=== PATIENT | male | born 1955 | race African-American/Black ===

== ENCOUNTER 2017-06-27 01:50 | Emergency (ER) | payer OTHER ==
[2017-06-27 02:08] LABS: Glucose,Whole Blood 103 mg/dL (75-99)
[2017-06-27] MEDS ORDERED: SODIUM CHLORIDE 0.9% 1,000 ML IV STA (02:14)
[2017-06-27] MEDS ORDERED: LABETALOL 5 MG/ML VIAL MDV IVP STA ×2 (02:14→04:23)
[2017-06-27] MEDS ORDERED: MORPHINE SULFATE 10 MG/ML SYRINGE IVP STA (02:15)
[2017-06-27] MEDS ORDERED: ACETAMINOPHEN TAB 500 MG TAB PO STA (02:32)
--- NOTE | 2017-06-27 02:41 | ED ---
General Adult HPI - General Chief complaint: Recheck/Abnormal Lab/Rx Stated complaint: headache,hypertension Time Seen by Provider: 06/27/17 01:51 Source: EMS, RN notes reviewed, old records reviewed Mode of arrival: EMS Limitations: no limitations - History of Present Illness Initial comments: This is a 61-year-old male to the ER for evaluation. Patient is coming in for evaluation of elevated blood pressure. Headache. He is recent history of stroke present presently is at [facility] for rehabilitation at this time. Patient's his rehabilitation is going well. Stroke affected memory and that has resolved. Patient's eye blood pressure high cholesterol and recent history of CVA. Patient denies any chest pain no shortness of breath. Denies any other complaints states she's been taking all medication as prescribed - Related Data Home Medications Medication Instructions Recorded Confirmed Aspirin 325 mg PO DAILY 06/27/17 06/27/17 Atorvastatin [Lipitor] 40 mg PO HS 06/27/17 06/27/17 Docusate [Colace] 100 mg PO DAILY 06/27/17 06/27/17 Insulin Glargine [Lantus] 10 unit SQ DAILY 06/27/17 06/27/17 Labetalol HCl 200 mg PO DAILY 06/27/17 06/27/17 Lacosamide [Vimpat] 200 mg PO DAILY 06/27/17 06/27/17 Multivitamin [Men's Multi-Vitamin] 1 each PO DAILY 06/27/17 06/27/17 NIFEdipine [NIFEdipine ER] 90 mg PO DAILY 06/27/17 06/27/17 Omeprazole [PriLOSEC] 20 mg PO AC-BRKFST 06/27/17 06/27/17 Sennosides [Senna] 8.6 mg PO DAILY 06/27/17 06/27/17 Allergies Allergy/AdvReac Type Severity Reaction Status Date / Time No Known Allergies Allergy Verified 06/27/17 01:58 Review of Systems ROS Statement: Those systems with pertinent positive or pertinent negative responses have been documented in the HPI. ROS Other: All systems not noted in ROS Statement are negative. Past Medical History Past Medical History: CVA/TIA, Diabetes Mellitus, GERD/Reflux, Hyperlipidemia, Hypertension History of Any Multi-Drug Resistant Organisms: None Reported Past Surgical History: No Surgical Hx Reported Past Psychological History: No Psychological Hx Reported Smoking Status: Never smoker Past Alcohol Use History: Occasional Past Drug Use History: None Reported General Exam Limitations: no limitations General appearance: alert, in no apparent distress Head exam: Present: atraumatic, normocephalic, normal inspection Eye exam: Present: normal appearance, PERRL, EOMI. Absent: scleral icterus, conjunctival injection, periorbital swelling ENT exam: Present: normal exam, mucous membranes moist Neck exam: Present: normal inspection. Absent: tenderness, meningismus, lymphadenopathy Respiratory exam: Present: normal lung sounds bilaterally. Absent: respiratory distress, wheezes, rales, rhonchi, stridor Cardiovascular Exam: Present: regular rate, normal rhythm, normal heart sounds. Absent: systolic murmur, diastolic murmur, rubs, gallop, clicks GI/Abdominal exam: Present: soft, normal bowel sounds. Absent: distended, tenderness, guarding, rebound, rigid Extremities exam: Present: normal inspection, full ROM, normal capillary refill. Absent: tenderness, pedal edema, joint swelling, calf tenderness Back exam: Present: normal inspection Neurological exam: Present: alert, oriented X3, CN II-XII intact Psychiatric exam: Present: normal affect, normal mood Skin exam: Present: warm, dry, intact, normal color. Absent: rash Course Vital Signs 06/27/17 06/27/17 06/27/17 01:52 02:13 02:28 Temperature 98.0 F Pulse Rate 79 78 75 Respiratory 20 20 18 Rate Blood Pressure 188/122 161/85 161/90 O2 Sat by Pulse 98 98 97 Oximetry 06/27/17 06/27/17 06/27/17 03:11 03:57 04:40 Temperature 98.2 F Pulse Rate 78 66 66 Respiratory 18 18 20 Rate Blood Pressure 156/81 150/80 170/91 O2 Sat by Pulse 97 100 98 Oximetry - Reevaluation(s) Reevaluation #1: 06/27/17 02:39 Patient's blood pressure and headache resolved without intervention Reevaluation #2: 06/27/17 02:39 Medical records reviewed, no recent ER visits aside from outpatient lab draw EKG Findings - EKG Comments: EKG Findings:: EKG shows normal sinus rhythm rate of 76, KS 182, QRS 102, QTc 414 Medical Decision Making - Medical Decision Making 61 male to ER for evaluation of high blood pressure today. Patient denies any chest pain breath occasional headache but symptoms are improved. At this point blood pressure is controlled, patient can be discharged back to rehabilitation facility - Lab Data Result diagrams: 06/27/17 02:05 06/27/17 02:05 Lab Results 06/27/17 06/27/17 06/27/17 Range/Units 02:03 02:05 02:05 WBC 5.0 (3.8-10.6) k/uL RBC 3.92 L (4.30-5.90) m/uL Hgb 11.2 L (13.0-17.5) gm/dL Hct 34.9 L (39.0-53.0) % MCV 88.9 (80.0-100.0) fL MCH 28.6 (25.0-35.0) pg MCHC 32.2 (31.0-37.0) g/dL RDW 12.4 (11.5-15.5) % Plt Count 123 L (150-450) k/uL Neutrophils % 49 % Lymphocytes % 36 % Monocytes % 7 % Eosinophils % 5 % Basophils % 1 % Neutrophils # 2.4 (1.3-7.7) k/uL Lymphocytes # 1.8 (1.0-4.8) k/uL Monocytes # 0.3 (0-1.0) k/uL Eosinophils # 0.3 (0-0.7) k/uL Basophils # 0.0 (0-0.2) k/uL PT (9.0-12.0) sec INR (<1.2) APTT (22.0-30.0) sec Sodium (137-145) mmol/L Potassium (3.5-5.1) mmol/L Chloride (98-107) mmol/L Carbon Dioxide (22-30) mmol/L Anion Gap mmol/L BUN (9-20) mg/dL Creatinine (0.66-1.25) mg/dL Est GFR (MDRD) Af Amer (>60 ml/min/1.73 sqM) Est GFR (MDRD) Non-Af (>60 ml/min/1.73 sqM) Glucose (74-99) mg/dL POC Glucose (mg/dL) 103 H (75-99) mg/dL POC Glu Curam Developer ID Jaz, Clarissa Calcium (8.4-10.2) mg/dL Phosphorus (2.5-4.5) mg/dL Magnesium (1.6-2.3) mg/dL Total Bilirubin (0.2-1.3) mg/dL AST (17-59) U/L ALT (21-72) U/L Alkaline Phosphatase (38-126) U/L Total Creatine Kinase 78 (55-170) U/L CK-MB (CK-2) 0.9 (0.0-2.4) ng/mL CK-MB (CK-2) Rel Index 1.2 Troponin I <0.012 (0.000-0.034) ng/mL Total Protein (6.3-8.2) g/dL Albumin (3.5-5.0) g/dL 06/27/17 06/27/17 Range/Units 02:05 02:05 WBC (3.8-10.6) k/uL RBC (4.30-5.90) m/uL Hgb (13.0-17.5) gm/dL Hct (39.0-53.0) % MCV (80.0-100.0) fL MCH (25.0-35.0) pg MCHC (31.0-37.0) g/dL RDW (11.5-15.5) % Plt Count (150-450) k/uL Neutrophils % % Lymphocytes % % Monocytes % % Eosinophils % % Basophils % % Neutrophils # (1.3-7.7) k/uL Lymphocytes # (1.0-4.8) k/uL Monocytes # (0-1.0) k/uL Eosinophils # (0-0.7) k/uL Basophils # (0-0.2) k/uL PT 10.9 (9.0-12.0) sec INR 1.1 (<1.2) APTT 23.4 (22.0-30.0) sec Sodium 140 (137-145) mmol/L Potassium 4.1 (3.5-5.1) mmol/L Chloride 107 (98-107) mmol/L Carbon Dioxide 23 (22-30) mmol/L Anion Gap 10 mmol/L BUN 16 (9-20) mg/dL Creatinine 1.20 (0.66-1.25) mg/dL Est GFR (MDRD) Af Amer >60 (>60 ml/min/1.73 sqM) Est GFR (MDRD) Non-Af >60 (>60 ml/min/1.73 sqM) Glucose 131 H (74-99) mg/dL POC Glucose (mg/dL) (75-99) mg/dL POC Glu Curam Developer ID Calcium 9.3 (8.4-10.2) mg/dL Phosphorus 4.4 (2.5-4.5) mg/dL Magnesium 1.8 (1.6-2.3) mg/dL Total Bilirubin 0.3 (0.2-1.3) mg/dL AST 23 (17-59) U/L ALT 35 (21-72) U/L Alkaline Phosphatase 55 (38-126) U/L Total Creatine Kinase (55-170) U/L CK-MB (CK-2) (0.0-2.4) ng/mL CK-MB (CK-2) Rel Index Troponin I (0.000-0.034) ng/mL Total Protein 7.1 (6.3-8.2) g/dL Albumin 3.9 (3.5-5.0) g/dL - Radiology Data Radiology results: report reviewed (CT brain, chest x-ray negative for acute disease), image reviewed Disposition Clinical Impression: Hypertension, uncontrolled, Hypertension Disposition: HOME SELF-CARE Condition: Good Instructions: Hypertension (ED) Referrals: Raúl Abbott DO [Primary Care Provider] - 1-2 days
[2017-06-27 02:45] LABS: ALT 35 U/L (21-72); AST 23 U/L (17-59); Alkaline Phosphatase 55 U/L (38-126); Anion Gap 10 mmol/L; Blood Urea Nitrogen 16 mg/dL (9-20); Calcium 9.3 mg/dL (8.4-10.2); Carbon Dioxide 23 mmol/L (22-30); Chloride 107 mmol/L (98-107); Glucose 131 mg/dL (74-99); Magnesium 1.8 mg/dL (1.6-2.3); Non-African American GFR(MDRD) >60 (>60 ml/min/1.73 sqM); Phosphorus 4.4 mg/dL (2.5-4.5); Potassium 4.1 mmol/L (3.5-5.1); Sodium 140 mmol/L (137-145); Total Bilirubin 0.3 mg/dL (0.2-1.3); Total Protein 7.1 g/dL (6.3-8.2)
[2017-06-27 02:55] LABS: Creatine Kinase 78 U/L (55-170)
[2017-06-27 03:08] LABS: Creatine Kinase MB 0.9 ng/mL (0.0-2.4); Troponin I <0.012 ng/mL (0.000-0.034)
[2017-06-27 03:29] LABS: Basophils % (A) 1 %; CH 29.4; CHCM 33.2; Eosinophils # (A) 0.3 k/uL (0-0.7); Eosinophils % (A) 5 %; HCT 34.9 % (39.0-53.0); HDW 2.11; HGB 11.2 gm/dL (13.0-17.5); Luc # (Auto) 0.12; Luc % (Auto) 3; Lymphocytes # (A) 1.8 k/uL (1.0-4.8); Lymphocytes % (A) 36 %; MCH 28.6 pg (25.0-35.0); MCHC 32.2 g/dL (31.0-37.0); MCV 88.9 fL (80.0-100.0); Mean Platelet Volume 8.4; Monocytes # (A) 0.3 k/uL (0-1.0); Monocytes % (A) 7 %; Neutrophils # (A) 2.4 k/uL (1.3-7.7); Neutrophils % (A) 49 %; RBC 3.92 m/uL (4.30-5.90); RDW 12.4 % (11.5-15.5); WBC (Perox) 4.94
--- NOTE | 2017-06-27 03:45 | CT ---
EXAM: CT Head Without Intravenous Contrast CLINICAL HISTORY: Weakness. TECHNIQUE: Axial computed tomography images of the head/brain without intravenous contrast. Coronal and sagittal reformations provided. CTDI is 57.40 mGy and DLP is 1011.30 mGy-cm. This CT exam was performed using one or more of the following dose reduction techniques: automated exposure control, adjustment of the mA and/or kV according to patient size, and/or use of iterative reconstruction technique. COMPARISON: No relevant prior studies available. FINDINGS: Brain: Age-indeterminate lacunar infarcts in the bilateral basal ganglia and thalami. Chronic-appearing left periventricular lacunar infarcts. No evidence of acute large vessel territory infarct. Atrophy and chronic small vessel ischemic disease. No acute intracranial hemorrhage, mass effect or midline shift. Ventricles: Unremarkable for age. No ventriculomegaly. Bones/joints: Unremarkable. No acute fracture. Soft tissues: Unremarkable. Sinuses: Scattered areas of mild mucosal thickening in the paranasal sinuses. No air-fluid levels in the visualized paranasal sinuses. Mastoid air cells: Unremarkable as visualized. No mastoid effusion. IMPRESSION: 1. Age-indeterminate lacunar infarcts in the bilateral basal ganglia and thalami. If there is clinical concern for acute infarct, MRI can be considered to further assess. 2. Chronic-appearing left periventricular lacunar infarcts. 3. No evidence of acute large vessel territory infarct, acute intracranial hemorrhage, mass effect or midline shift. 4. Atrophy and chronic small vessel ischemic disease.
--- NOTE | 2017-06-27 03:49 | XR ---
EXAM: XR Chest, 2 Views CLINICAL HISTORY: Weakness, hypertension. TECHNIQUE: Frontal and lateral views of the chest. COMPARISON: No relevant prior studies available. FINDINGS: Lungs: Linear opacity at the left lung base, probably atelectasis or scarring. Lungs otherwise appear clear. Pleural space: No evidence of pleural effusion or pneumothorax. Heart: Normal cardiac silhouette size. Mediastinum: Unremarkable. No mediastinal widening. Bones/joints: Question abnormality of the right acromioclavicular joint which may be due to prior trauma or positioning. Osseous structures otherwise appear grossly intact. IMPRESSION: 1. Linear opacity at the left lung base, probably atelectasis or scarring. Lungs otherwise appear clear. 2. No pleural effusion or pneumothorax. 3. Normal cardiac silhouette size. 4. Question abnormality of the right acromioclavicular joint which may be due to prior trauma or positioning. Osseous structures otherwise appear grossly intact.
[2017-06-27 03:59] VITALS: PULSE 66
[2017-06-27 04:03] LABS: INR 1.1 (<1.2); Partial Thromboplastin Time 23.4 sec (22.0-30.0); Prothrombin Time 10.9 sec (9.0-12.0)
[2017-06-27 04:41] VITALS: BP 170/91; RESP 20; TEMP 98.2
== END 2017-06-27 04:55 | disposition home or self-care (01) ==
LOC: EC 01:50
DX: I10 Essential (primary) hypertension (principal); R51 Headache; E11.9 Type 2 diabetes mellitus without complications; K21.9 Gastro-esophageal reflux disease without esophagitis; E78.5 Hyperlipidemia, unspecified; Z86.73 Personal history of transient ischemic attack (TIA), and cerebral infarction without residual deficits; Z79.4 Long term (current) use of insulin; Z79.82 Long term (current) use of aspirin; Z79.899 Other long term (current) drug therapy
CPT/HCPCS: 36415; 70450; 71020; 80053; 82550; 82553; 83735; 84100; 84484; 85025; 85610; 85730; 93005; 96361; 96374; 99285

== ENCOUNTER → 2018-01-30 | Outpatient (CLI) | payer OTHER ==
[2018-01-30 13:19] LABS: HCT 36.5 % (39.0-53.0); HGB 12.4 gm/dL (13.0-17.5); MCHC 34.1 g/dL (31.0-37.0); MCV 85.1 fL (80.0-100.0); Mean Platelet Volume 9.2; Platelet Count 116 k/uL (150-450); RBC 4.29 m/uL (4.30-5.90); RDW 14.2 % (11.5-15.5); WBC 5.3 k/uL (3.8-10.6)
[2018-01-30 13:27] LABS: Calcium 9.1 mg/dL (8.4-10.2); Potassium 5.3 mmol/L (3.5-5.1)
[2018-01-30 20:33] LABS: Hemoglobin A1C 7.1 % (4.0-6.0)
== END | disposition home or self-care (01) ==
LOC: LABWHC1 12:25
PROVIDERS: ATTEND Family Medicine
DX: E11.65 Type 2 diabetes mellitus with hyperglycemia (principal); I10 Essential (primary) hypertension
CPT/HCPCS: 36415; 80048; 83036; 84450; 84460; 85027

== ENCOUNTER 2018-03-04 18:21 | Emergency (ER) | payer OTHER ==
[2018-03-04 18:29] VITALS: RESP 18
[2018-03-04] MEDS ORDERED: SODIUM CHLORIDE 0.9% 1,000 ML IV STA (20:47)
[2018-03-04 21:17] VITALS: TEMP 97.9
--- NOTE | 2018-03-04 21:31 | ED ---
General Adult HPI - General Source: patient, RN notes reviewed, old records reviewed Mode of arrival: ambulatory Limitations: no limitations <Mehdi Merino - Last Filed: 03/04/18 22:52> <Isaac Glass - Last Filed: 03/06/18 20:45> - General Chief complaint: Abdominal Pain Stated complaint: Left side pain Time Seen by Provider: 03/04/18 20:38 - History of Present Illness Initial comments: Patient 62-year-old male presented to the emergency room today with a chief complaint of back pain. Patient does admit that over the last week that is been experiencing some discomfort to the middle back as wrapping around the left upper quadrant of the abdomen. Patient states that he did see his family doctor advised coming to the emergency room for x-rays. Patient states the pain in his back is worse with certain movements of bending, twisting. Patient denies any other complaints or associated symptoms. Patient denies any recent fever, chills, shortness of breath, chest pain, nausea or vomiting, dysuria or hematuria, constipation or diarrhea, headaches or visual changes, or any other complaints. (Mehdi Merino) - Related Data Home Medications Medication Instructions Recorded Confirmed Aspirin 325 mg PO DAILY 06/27/17 06/27/17 Atorvastatin [Lipitor] 40 mg PO HS 06/27/17 06/27/17 Docusate [Colace] 100 mg PO DAILY 06/27/17 06/27/17 Insulin Glargine [Lantus] 10 unit SQ DAILY 06/27/17 06/27/17 Labetalol HCl 200 mg PO DAILY 06/27/17 06/27/17 Lacosamide [Vimpat] 200 mg PO DAILY 06/27/17 06/27/17 Multivitamin [Men's Multi-Vitamin] 1 each PO DAILY 06/27/17 06/27/17 NIFEdipine [NIFEdipine ER] 90 mg PO DAILY 06/27/17 06/27/17 Omeprazole [PriLOSEC] 20 mg PO AC-BRKFST 06/27/17 06/27/17 Sennosides [Senna] 8.6 mg PO DAILY 06/27/17 06/27/17 Allergies Allergy/AdvReac Type Severity Reaction Status Date / Time No Known Allergies Allergy Verified 03/04/18 21:18 Review of Systems ROS Other: All systems not noted in ROS Statement are negative. <Mehdi Merino - Last Filed: 03/04/18 22:52> ROS Other: All systems not noted in ROS Statement are negative. <Isaac Glass - Last Filed: 03/06/18 20:45> ROS Statement: Those systems with pertinent positive or pertinent negative responses have been documented in the HPI. Past Medical History Past Medical History: CVA/TIA, Diabetes Mellitus, GERD/Reflux, Hyperlipidemia, Hypertension History of Any Multi-Drug Resistant Organisms: None Reported Past Surgical History: No Surgical Hx Reported Past Psychological History: No Psychological Hx Reported Smoking Status: Never smoker Past Alcohol Use History: Occasional Past Drug Use History: None Reported <Mehdi Merino - Last Filed: 03/04/18 22:52> General Exam Limitations: no limitations <Mehdi Merino - Last Filed: 03/04/18 22:52> Vital Signs 03/04/18 03/04/18 03/04/18 18:24 21:16 23:04 Temperature 98.3 F 97.9 F 97.9 F Pulse Rate 67 69 84 Respiratory 18 18 18 Rate Blood Pressure 126/81 158/69 151/81 O2 Sat by Pulse 98 97 99 Oximetry EKG Findings - EKG Comments: EKG Findings:: EKG performed at 2057: Shows a sinus rhythm with first-degree AV block at 69 bpm. VA interval is 230. QRS 104. QT/QTc is 374/400. No acute ST change. <Mehdi Merino - Last Filed: 03/04/18 22:52> Medical Decision Making - Lab Data Result diagrams: 03/04/18 21:15 03/04/18 21:15 <Mehdi Merino - Last Filed: 03/04/18 22:52> - Lab Data Result diagrams: 03/04/18 21:15 03/04/18 21:15 <Isaac Glass - Last Filed: 03/06/18 20:45> - Medical Decision Making Patient's labs been reviewed and are unremarkable. No sign of blood in the urine. Kidney function is good. Patient EKG showing no acute changes. Patient 's had back pain over the last week. Pain is reproduced with movements. Negative cardiac enzymes. Patient at this time is resting comfortably. Will be discharged home to follow up with his family physician tomorrow. Advised return if any symptoms increase or worsen. (Mehdi Merino) Resident/PA attestation: I, Dr. Isaac Glass, personally saw and examined the patient. I have reviewed and agree with the resident/PA findings, including all diagnostic interpretations and treatment plans as written unless otherwise stated. I was present for the go portions of any procedures performed and inclusive time noted for any critical care statement. (Isaac Glass) - Lab Data Lab Results 03/04/18 03/04/18 03/04/18 Range/Units 21:15 21:15 21:15 WBC 5.1 (3.8-10.6) k/uL RBC 4.35 (4.30-5.90) m/uL Hgb 12.1 L (13.0-17.5) gm/dL Hct 36.9 L (39.0-53.0) % MCV 85.0 (80.0-100.0) fL MCH 27.9 (25.0-35.0) pg MCHC 32.8 (31.0-37.0) g/dL RDW 13.8 (11.5-15.5) % Plt Count 120 L (150-450) k/uL Neutrophils % 45 % Lymphocytes % 41 % Monocytes % 7 % Eosinophils % 5 % Basophils % 1 % Neutrophils # 2.3 (1.3-7.7) k/uL Lymphocytes # 2.1 (1.0-4.8) k/uL Monocytes # 0.3 (0-1.0) k/uL Eosinophils # 0.2 (0-0.7) k/uL Basophils # 0.0 (0-0.2) k/uL PT (9.0-12.0) sec INR (<1.2) APTT (22.0-30.0) sec Sodium 141 (137-145) mmol/L Potassium 4.5 (3.5-5.1) mmol/L Chloride 110 H (98-107) mmol/L Carbon Dioxide 23 (22-30) mmol/L Anion Gap 8 mmol/L BUN 21 H (9-20) mg/dL Creatinine 1.10 (0.66-1.25) mg/dL Est GFR (CKD-EPI)AfAm 82 (>60 ml/min/1.73 sqM) Est GFR (CKD-EPI)NonAf 71 (>60 ml/min/1.73 sqM) Glucose 114 H (74-99) mg/dL Calcium 9.1 (8.4-10.2) mg/dL Total Bilirubin 0.2 (0.2-1.3) mg/dL AST 25 (17-59) U/L ALT 37 (21-72) U/L Alkaline Phosphatase 61 (38-126) U/L Total Creatine Kinase 134 (55-170) U/L CK-MB (CK-2) 1.4 (0.0-2.4) ng/mL CK-MB (CK-2) Rel Index 1.0 Troponin I <0.012 (0.000-0.034) ng/mL Total Protein 7.0 (6.3-8.2) g/dL Albumin 4.1 (3.5-5.0) g/dL Amylase 126 H (30-110) U/L Lipase 100 (23-300) U/L Urine Color Urine Appearance (Clear) Urine pH (5.0-8.0) Ur Specific [place] (1.001-1.035) Urine Protein (Negative) Urine Glucose (UA) (Negative) Urine Ketones (Negative) Urine Blood (Negative) Urine Nitrite (Negative) Urine Bilirubin (Negative) Urine Urobilinogen (<2.0) mg/dL Ur Leukocyte Esterase (Negative) 03/04/18 03/04/18 Range/Units 21:15 22:10 WBC (3.8-10.6) k/uL RBC (4.30-5.90) m/uL Hgb (13.0-17.5) gm/dL Hct (39.0-53.0) % MCV (80.0-100.0) fL MCH (25.0-35.0) pg MCHC (31.0-37.0) g/dL RDW (11.5-15.5) % Plt Count (150-450) k/uL Neutrophils % % Lymphocytes % % Monocytes % % Eosinophils % % Basophils % % Neutrophils # (1.3-7.7) k/uL Lymphocytes # (1.0-4.8) k/uL Monocytes # (0-1.0) k/uL Eosinophils # (0-0.7) k/uL Basophils # (0-0.2) k/uL PT 10.3 (9.0-12.0) sec INR 1.1 (<1.2) APTT 23.5 (22.0-30.0) sec Sodium (137-145) mmol/L Potassium (3.5-5.1) mmol/L Chloride (98-107) mmol/L Carbon Dioxide (22-30) mmol/L Anion Gap mmol/L BUN (9-20) mg/dL Creatinine (0.66-1.25) mg/dL Est GFR (CKD-EPI)AfAm (>60 ml/min/1.73 sqM) Est GFR (CKD-EPI)NonAf (>60 ml/min/1.73 sqM) Glucose (74-99) mg/dL Calcium (8.4-10.2) mg/dL Total Bilirubin (0.2-1.3) mg/dL AST (17-59) U/L ALT (21-72) U/L Alkaline Phosphatase (38-126) U/L Total Creatine Kinase (55-170) U/L CK-MB (CK-2) (0.0-2.4) ng/mL CK-MB (CK-2) Rel Index Troponin I (0.000-0.034) ng/mL Total Protein (6.3-8.2) g/dL Albumin (3.5-5.0) g/dL Amylase (30-110) U/L Lipase (23-300) U/L Urine Color Light Yellow Urine Appearance Clear (Clear) Urine pH 6.5 (5.0-8.0) Ur Specific [place] 1.010 (1.001-1.035) Urine Protein Negative (Negative) Urine Glucose (UA) Negative (Negative) Urine Ketones Negative (Negative) Urine Blood Negative (Negative) Urine Nitrite Negative (Negative) Urine Bilirubin Negative (Negative) Urine Urobilinogen <2.0 (<2.0) mg/dL Ur Leukocyte Esterase Negative (Negative) Disposition Is patient prescribed a controlled substance at d/c from ED?: No Time of Disposition: 22:53 <Mehdi Merino - Last Filed: 03/04/18 22:52> <Isaac Glass - Last Filed: 03/06/18 20:45> Clinical Impression: Abdominal pain, Back pain Disposition: HOME SELF-CARE Condition: Good Instructions: Abdominal Pain (ED) Additional Instructions: Please follow family doctor over the next 1-2 days as discussed. Please return here to the emergency room if any symptoms increase or worsen or for any other concerns. Referrals: Raúl Abbott DO [Primary Care Provider] - 1-2 days
[2018-03-04 21:33] LABS: Basophils % (A) 1 %; Eosinophils # (A) 0.2 k/uL (0-0.7); Eosinophils % (A) 5 %; HCT 36.9 % (39.0-53.0); HGB 12.1 gm/dL (13.0-17.5); Lymphocytes # (A) 2.1 k/uL (1.0-4.8); Lymphocytes % (A) 41 %; MCH 27.9 pg (25.0-35.0); MCHC 32.8 g/dL (31.0-37.0); Mean Platelet Volume 8.4; Monocytes # (A) 0.3 k/uL (0-1.0); Monocytes % (A) 7 %; Neutrophils # (A) 2.3 k/uL (1.3-7.7); Neutrophils % (A) 45 %; Platelet Count 120 k/uL (150-450); RBC 4.35 m/uL (4.30-5.90); RDW 13.8 % (11.5-15.5); WBC 5.1 k/uL (3.8-10.6)
[2018-03-04 21:40] LABS: INR 1.1 (<1.2); Partial Thromboplastin Time 23.5 sec (22.0-30.0); Prothrombin Time 10.3 sec (9.0-12.0)
--- NOTE | 2018-03-04 21:47 | XR ---
EXAMINATION TYPE: XR chest 2V DATE OF EXAM: 03/04/2018 COMPARISON: 06/27/2017 HISTORY: Cough TECHNIQUE: Frontal and lateral views of the chest are obtained. FINDINGS: Heart and mediastinum are normal. There is small linear density at the left lung base. The other lung gabriel are clear. There are chest leads. Bony thorax is intact. IMPRESSION: Subsegmental atelectasis at the left lung base with a slight improvement compared to las t exam. Normal heart.
--- NOTE | 2018-03-04 21:48 | XR ---
EXAMINATION TYPE: XR KUB DATE OF EXAM: 03/04/2018 COMPARISON: 03/28/2009 HISTORY: Cough TECHNIQUE: 2 views FINDINGS: The bowel gas pattern is normal. There is no sign of intestinal obstruction or pneumoperito neum. Fecal pattern is normal. Lung bases are clear. There are no pathologic calcifications. IMPRESSION: Nonacute abdomen.
[2018-03-04 21:50] LABS: Albumin 4.1 g/dL (3.5-5.0); Calcium 9.1 mg/dL (8.4-10.2); Potassium 4.5 mmol/L (3.5-5.1); Total Bilirubin 0.2 mg/dL (0.2-1.3)
[2018-03-04 21:59] LABS: Creatine Kinase 134 U/L (55-170)
[2018-03-04 22:12] LABS: Creatine Kinase MB 1.4 ng/mL (0.0-2.4); Troponin I <0.012 ng/mL (0.000-0.034)
[2018-03-04 22:34] LABS: Appearance,Urine Clear (Clear); Bilirubin,Urine Negative (Negative); Blood,Urine Negative (Negative); Color,Urine Light Yellow; Glucose,Urine (UA) Negative (Negative); Ketones,Urine Negative (Negative); Leukocyte Esterase,Urine Negative (Negative); Nitrite,Urine Negative (Negative); PH, Urine 6.5 (5.0-8.0); Protein,Urine Negative (Negative); Urobilinogen,Urine <2.0 mg/dL (<2.0)
[2018-03-04 23:06] VITALS: BP 151/81; PULSE 84
== END 2018-03-04 23:04 | disposition home or self-care (01) ==
LOC: EC 18:21
DX: R10.12 Left upper quadrant pain (principal); M54.9 Dorsalgia, unspecified; E11.9 Type 2 diabetes mellitus without complications; K21.9 Gastro-esophageal reflux disease without esophagitis; E78.5 Hyperlipidemia, unspecified; I10 Essential (primary) hypertension; Z86.73 Personal history of transient ischemic attack (TIA), and cerebral infarction without residual deficits; Z79.4 Long term (current) use of insulin; Z79.82 Long term (current) use of aspirin; Z79.899 Other long term (current) drug therapy
CPT/HCPCS: 36415; 71046; 74018; 80053; 81003; 82150; 82550; 82553; 83690; 84484; 85025; 85610; 85730; 93005; 96360; 99284

== ENCOUNTER → 2018-05-09 | Outpatient (CLI) | payer OTHER | END | disposition home or self-care (01) | LOC: RADMRIMAIN 17:51 | PROVIDERS: ATTEND Psychiatry & Neurology Neurology | DX: Z53.9 Procedure and treatment not carried out, unspecified reason (principal) ==

== ENCOUNTER → 2018-07-07 | Outpatient (CLI) | payer OTHER ==
[2018-07-07 13:45] LABS: HCT 34.7 % (39.0-53.0); HGB 11.5 gm/dL (13.0-17.5); MCH 29.2 pg (25.0-35.0); MCHC 33.2 g/dL (31.0-37.0); MCV 87.8 fL (80.0-100.0); Platelet Count 109 k/uL (150-450); RBC 3.95 m/uL (4.30-5.90); RDW 13.5 % (11.5-15.5); WBC 5.1 k/uL (3.8-10.6)
[2018-07-07 17:51] LABS: Anion Gap 3.3 mmol/L (4.00-12.00); Calcium 8.8 mg/dL (8.7-10.3); Carbon Dioxide 25.7 mmol/L (21.6-31.8); Potassium 4.5 mmol/L (3.5-5.5)
[2018-07-07 22:14] LABS: Hemoglobin A1C 6.6 % (4.0-6.0)
== END ==
LOC: LABWHC1 13:14
PROVIDERS: ATTEND Family Medicine
DX: E11.65 Type 2 diabetes mellitus with hyperglycemia (principal); I10 Essential (primary) hypertension
CPT/HCPCS: 36415; 80048; 83036; 84450; 84460; 85027

== ENCOUNTER 2018-07-14 20:56 | Emergency (ER) | payer OTHER ==
[2018-07-14 21:01] VITALS: TEMP 98
[2018-07-14] MEDS ORDERED: INSULIN DETEMIR 100 UNIT/ML 10 ML VIAL SQ STA (21:43)
--- NOTE | 2018-07-14 21:47 | ED ---
Recheck HPI - General Chief Complaint: Recheck/Abnormal Lab/Rx Stated Complaint: Med Refill Time Seen by Provider: 07/14/18 21:09 Source: patient Mode of arrival: ambulatory Limitations: no limitations - History of Present Illness Initial Comments: Patient is a 62-year-old male with history of insulin-dependent type 2 diabetes who presents to the emergency department today because he has been out of insulin since yesterday and has been unable to fill his prescription. Patient reports he takes 10 units of long-acting insulin every morning, his last dose was Saturday morning. Patient reports that he checked his sugar at home and it was 250 which is high for him so he decided to come to the emergency department for evaluation and insulin. Patient states that he has attempted to contact his primary care physician and his pharmacy however there seems to be some lack of communication which is resulted and not getting his insulin filled. Patient reports he's feeling fine, he has no complaints but he does have a history of hyperglycemic emergencies in the past which is resulted in being admitted to the hospital and he does not want his sugar to get too high cause any problems. - Related Data Home Medications Medication Instructions Recorded Confirmed Atorvastatin [Lipitor] 40 mg PO HS 06/27/17 07/14/18 Docusate [Colace] 100 mg PO DAILY 06/27/17 07/14/18 Labetalol HCl 200 mg PO Q8H 06/27/17 07/14/18 Lacosamide [Vimpat] 200 mg PO BID 06/27/17 07/14/18 Multivitamin [Men's Multi-Vitamin] 1 tab PO DAILY 06/27/17 07/14/18 NIFEdipine [NIFEdipine ER] 90 mg PO DAILY 06/27/17 07/14/18 Omeprazole [PriLOSEC] 20 mg PO DAILY 06/27/17 07/14/18 Sennosides [Senna] 8.6 mg PO DAILY 06/27/17 07/14/18 Lisinopril 40 mg PO DAILY 07/14/18 07/14/18 Loratadine [Claritin] 10 mg PO DAILY 07/14/18 07/14/18 Previous Rx's Medication Instructions Recorded Insulin Glargine,Hum.rec.anlog 10 unit SQ DAILY #1 insuln.pen 07/14/18 [Basaglar Kwikpen U-100] Allergies Allergy/AdvReac Type Severity Reaction Status Date / Time No Known Allergies Allergy Verified 07/14/18 21:28 Review of Systems ROS Statement: Those systems with pertinent positive or pertinent negative responses have been documented in the HPI. ROS Other: All systems not noted in ROS Statement are negative. Past Medical History Past Medical History: CVA/TIA, Diabetes Mellitus, GERD/Reflux, Hyperlipidemia, Hypertension History of Any Multi-Drug Resistant Organisms: None Reported Past Surgical History: No Surgical Hx Reported Past Psychological History: No Psychological Hx Reported Smoking Status: Never smoker Past Alcohol Use History: Occasional Past Drug Use History: None Reported General Exam - General Exam Comments Initial Comments: Physical Exam GENERAL: Patient is well-developed and well-nourished. Patient is nontoxic and well- hydrated and is in no distress. HENT: Normocephalic, Atraumatic. EYES: PERRL, EOMI PULMONARY: Unlabored respirations. No audible rales rhonchi or wheezing was noted. CARDIOVASCULAR: There is a regular rate and rhythm without any murmurs gallops or rubs. ABDOMEN: Soft and nontender with normal bowel sounds. SKIN: Skin is clear with no lesions or rashes and otherwise unremarkable. : Deferred NEUROLOGIC: Patient is alert and oriented x3. Moving all extremities spontaneously MUSCULOSKELETAL: Normal extremities with adequate strength and full range of motion. No lower extremity swelling or edema. No calf tenderness. PSYCHIATRIC: Normal psychiatric evaluation. Limitations: no limitations Limitations: no limitations Course Vital Signs 07/14/18 20:59 Temperature 98 F Pulse Rate 91 Respiratory 18 Rate Blood Pressure 186/103 O2 Sat by Pulse 100 Oximetry Medical Decision Making - Medical Decision Making This is a very well-appearing and pleasant 62-year-old gentleman with insulin- dependent type 2 diabetes who presents to the emergency department today because he has been unable to fill his insulin prescription and has not had insulin since yesterday morning. Patient reports his glucose at home prior to arrival was 250 which is very high for him. Patient denies any acute complaints. We'll plan to repeat blood glucose monitoring, administer the patient's usual dose of insulin and prescribed insulin. Patient is agreeable to this plan. Patient's glucose here was in the 220s, he was given his dose of insulin and prescribed his insulin pen. Patient discharged home in stable condition. Disposition Clinical Impression: Encounter for medication refill Disposition: HOME SELF-CARE Condition: Good Prescriptions: Insulin Glargine,Hum.rec.anlog [[place] U-100] 10 unit SQ DAILY #1 insuln.pen Is patient prescribed a controlled substance at d/c from ED?: No Referrals: Raúl Abbott DO [Primary Care Provider] - 1-2 days Decision Time: 22:37
[2018-07-14 22:42] LABS: Glucose,Whole Blood 221 mg/dL (75-99)
[2018-07-14 23:11] VITALS: BP 166/90; PULSE 88; RESP 16
== END 2018-07-14 22:52 | disposition home or self-care (01) ==
LOC: EC 20:56
DX: Z76.0 Encounter for issue of repeat prescription (principal); E11.9 Type 2 diabetes mellitus without complications; E78.5 Hyperlipidemia, unspecified; I10 Essential (primary) hypertension; K21.9 Gastro-esophageal reflux disease without esophagitis; Z79.4 Long term (current) use of insulin; Z79.899 Other long term (current) drug therapy
CPT/HCPCS: 36415; 99281

== ENCOUNTER 2018-09-06 21:35 | Emergency (ER) | payer OTHER ==
[2018-09-06] MEDS ORDERED: SODIUM CHLORIDE 0.9% 1,000 ML IV STA (21:50)
[2018-09-06] MEDS ORDERED: ASPIRIN 81 MG PO STA (21:50)
--- NOTE | 2018-09-06 22:00 | ED ---
Chest Pain HPI - General Chief Complaint: Chest Pain Stated Complaint: chest pin x 2 days Time Seen by Provider: 09/06/18 21:49 Source: patient Mode of arrival: wheelchair Limitations: no limitations - History of Present Illness Initial Comments: The patient is a 62-year-old male who presents the emergency department today for evaluation of pinpoint pain in the left pectoralis muscle and pain in the left abdominal wall. Patient reports that he has recently increased his weight lifting activities, and does report that he had been doing some arm exercises a few days ago. He subsequently developed pain in his shoulder as well as the pain in his stomach. He initially thought these were muscle strain however the pain has persisted for multiple days which prompted him to come to the ER for evaluation. Patient is able to point with one finger tip to the location of the sharp pain in his left pectoralis muscle. This pain is worse with stretching his left shoulder. The patient also has an area in his left lower quadrant of tenderness is worse with palpation or movement. - Related Data Home Medications Medication Instructions Recorded Confirmed Atorvastatin [Lipitor] 40 mg PO HS 06/27/17 07/14/18 Docusate [Colace] 100 mg PO DAILY 06/27/17 07/14/18 Labetalol HCl 200 mg PO Q8H 06/27/17 07/14/18 Lacosamide [Vimpat] 200 mg PO BID 06/27/17 07/14/18 Multivitamin [Men's Multi-Vitamin] 1 tab PO DAILY 06/27/17 07/14/18 NIFEdipine [NIFEdipine ER] 90 mg PO DAILY 06/27/17 07/14/18 Omeprazole [PriLOSEC] 20 mg PO DAILY 06/27/17 07/14/18 Sennosides [Senna] 8.6 mg PO DAILY 06/27/17 07/14/18 Lisinopril 40 mg PO DAILY 07/14/18 07/14/18 Loratadine [Claritin] 10 mg PO DAILY 07/14/18 07/14/18 Previous Rx's Medication Instructions Recorded Insulin Glargine,Hum.rec.anlog 10 unit SQ DAILY #1 insuln.pen 07/14/18 [Basaglcali Mayberry U-100] Allergies Allergy/AdvReac Type Severity Reaction Status Date / Time No Known Allergies Allergy Verified 09/06/18 21:46 Review of Systems ROS Statement: Those systems with pertinent positive or pertinent negative responses have been documented in the HPI. ROS Other: All systems not noted in ROS Statement are negative. Past Medical History Past Medical History: CVA/TIA, Diabetes Mellitus, GERD/Reflux, Hyperlipidemia, Hypertension History of Any Multi-Drug Resistant Organisms: None Reported Past Surgical History: No Surgical Hx Reported Past Psychological History: No Psychological Hx Reported Smoking Status: Never smoker Past Alcohol Use History: Occasional Past Drug Use History: None Reported General Exam - General Exam Comments Initial Comments: GENERAL: Patient is well-developed and well-nourished. Patient is nontoxic and well- hydrated and is in no distress. HENT: Normocephalic, Atraumatic. EYES: The sclera were anicteric and conjunctiva were pink and moist. Extraocular movements were intact and pupils were equal round and reactive to light. Eyelids were unremarkable. PULMONARY: Unlabored respirations CARDIOVASCULAR: There is a regular rate and rhythm without any murmurs gallops or rubs. Chest wall with point tenderness to palpation of the left pectoralis muscle ABDOMEN: Soft and nontender with normal bowel sounds. Point tenderness in the left lower quadrant SKIN: Skin is clear with no lesions or rashes and otherwise unremarkable. NEUROLOGIC: Patient is alert and oriented x3. Cranial nerves II through XII are grossly intact. Motor and sensory are also intact. Normal speech, volume and content. Symmetrical smile. MUSCULOSKELETAL: Normal extremities with adequate strength and full range of motion. No lower extremity swelling or edema. No calf tenderness. LYMPHATICS: No significant lymphadenopathy is noted PSYCHIATRIC: Normal psychiatric evaluation. Limitations: no limitations Limitations: no limitations Course Vital Signs 09/06/18 09/06/18 09/07/18 21:44 23:05 01:06 Temperature 98.1 F 97.9 F 98.0 F Pulse Rate 75 71 69 Respiratory 18 16 18 Rate Blood Pressure 152/96 117/70 145/111 O2 Sat by Pulse 97 97 98 Oximetry 09/07/18 01:08 Temperature Pulse Rate 71 Respiratory 18 Rate Blood Pressure 153/97 O2 Sat by Pulse 95 Oximetry Chest Pain MDM - MDM Patient was seen and evaluated history was obtained from the patient This is a very pleasant 62-year-old -[place] male presenting with 3 days of left-sided chest wall and left-sided abdominal wall pain after weight lifting. Chest pain is worse with certain movements or palpation, pain is not exertional pain is not associated with diaphoresis lightheadedness nausea or shortness of breath. I have a high suspicion for musculoskeletal chest pain however given the patient 's age and past medical history I will order a single troponin chest x-ray and EKG EKG is not ischemic - sinus rhythm with no acute ST elevations or depressions no evidence of acute ischemia or infarction Chest x-ray no acute findings Labs are unremarkable, troponin is negative Results were discussed with the patient who expresses relief at this time the patient's comfortable the plan for discharge home with supportive care, anti- inflammatories as needed rest from heavy weight lifting and slow gradual return with incremental weights. All questions pertaining care were answered return parameters were discussed patient was discharged home in stable condition. Disposition Clinical Impression: Atypical chest pain, Muscle strain Disposition: HOME SELF-CARE Condition: Stable Instructions (If sedation given, give patient instructions): Chest Pain (ED) Is patient prescribed a controlled substance at d/c from ED?: No Referrals: Raúl Abbott DO [Primary Care Provider] - 1-2 days Time of Disposition: 23:58
[2018-09-06 22:17] LABS: Basophils # (A) 0.1 k/uL (0-0.2); Basophils % (A) 1 %; Eosinophils # (A) 0.4 k/uL (0-0.7); Eosinophils % (A) 6 %; HCT 37.6 % (39.0-53.0); HGB 12.5 gm/dL (13.0-17.5); Lymphocytes # (A) 2.2 k/uL (1.0-4.8); Lymphocytes % (A) 38 %; MCH 28.4 pg (25.0-35.0); MCHC 33.1 g/dL (31.0-37.0); MCV 85.7 fL (80.0-100.0); Mean Platelet Volume 7.4; Monocytes # (A) 0.3 k/uL (0-1.0); Monocytes % (A) 5 %; Neutrophils # (A) 2.8 k/uL (1.3-7.7); Neutrophils % (A) 48 %; Platelet Count 129 k/uL (150-450); RBC 4.39 m/uL (4.30-5.90); RDW 13.2 % (11.5-15.5); WBC 5.8 k/uL (3.8-10.6)
[2018-09-06 22:27] LABS: Partial Thromboplastin Time 24.3 sec (22.0-30.0); Prothrombin Time 10.3 sec (9.0-12.0)
[2018-09-06 22:35] LABS: Albumin 4.3 g/dL (3.5-5.0); Calcium 9.7 mg/dL (8.4-10.2); Magnesium 1.9 mg/dL (1.6-2.3); Potassium 4.7 mmol/L (3.5-5.1); Total Bilirubin 0.4 mg/dL (0.2-1.3); Total Protein 7.8 g/dL (6.3-8.2)
[2018-09-06 22:36] LABS: Creatine Kinase 184 U/L (55-170)
--- NOTE | 2018-09-06 22:36 | XR ---
EXAMINATION TYPE: XR chest 2V DATE OF EXAM: 09/06/2018 COMPARISON: 03/04/2018 HISTORY: Left side chest pain TECHNIQUE: Frontal and lateral views of the chest are obtained. FINDINGS: Heart and mediastinum are normal. There is linear density at the left lung base. Costophre reema angles are clear. Bony thorax is intact. IMPRESSION: Subsegmental atelectasis at the left lung base similar to old exam. Normal heart.
[2018-09-06 22:49] LABS: Creatine Kinase MB 2.1 ng/mL (0.0-2.4); Troponin I <0.012 ng/mL (0.000-0.034)
[2018-09-07] MEDS ORDERED: KETOROLAC 30 MG/ML 1 ML VIAL IVP ONE (00:06)
[2018-09-07 01:07] VITALS: RESP 18; TEMP 98
[2018-09-07 01:10] VITALS: BP 153/97; PULSE 71
--- NOTE | 2018-09-09 00:08 | CDI ---
Documentation Clarification OP Dear Madhavi MILAN, DO Please provide muscle strain specific site. Thank you, Romel Evans [employer] Instructor If you have any questions, please contact [employer] at [phone] [facility]
== END 2018-09-07 01:08 | disposition home or self-care (01) ==
LOC: EC 21:35
DX: S29.012A Strain of muscle and tendon of back wall of thorax, initial encounter (principal); R10.32 Left lower quadrant pain; M25.512 Pain in left shoulder; K21.9 Gastro-esophageal reflux disease without esophagitis; E78.5 Hyperlipidemia, unspecified; I10 Essential (primary) hypertension; Z86.73 Personal history of transient ischemic attack (TIA), and cerebral infarction without residual deficits; Z79.899 Other long term (current) drug therapy; X50.0XXA Overexertion from strenuous movement or load, initial encounter; Y93.B3 Activity, free weights
CPT/HCPCS: 99284; 96374; 96361 ×2; 36415; 93005; 80053; 82150; 82550; 82553; 83735; 84484; 85025; 85610; 85730; 71046; J1885

== ENCOUNTER 2018-10-18 21:46 | Emergency (ER) | payer OTHER ==
[2018-10-18 21:54] VITALS: BP 142/82; TEMP 97.6
[2018-10-18] MEDS ORDERED: ONDANSETRON 4 MG ODT STARTER PACK 2 TAB BTL PO STA (22:41)
--- NOTE | 2018-10-18 22:43 | ED ---
General Adult HPI - General Chief complaint: Overdose Stated complaint: Chemical Ingestion Time Seen by Provider: 10/18/18 22:13 Source: patient Mode of arrival: ambulatory Limitations: no limitations - History of Present Illness Initial comments: 62-year-old male patient presents to the emergency department today for evaluation after accidentally ingesting a household cleaning solution. Patient states he was taking his medication and had the solution in a water bottle and accidentally grabbed the strip cleaner instead of the water. Patient states he took one big gulp. States since swallowing this he has had some burning in his throat and has felt nauseated. Patient denies any vomiting. Denies any abdominal pain or chest pain. Denies any difficulty breathing. Patient did not contact [employer]. He has not had anything to eat or drink since the incident. Patient denies any recent rash, fever, chills, diarrhea, constipation, back pain, numbness, tingling, dizziness, weakness, hematuria, dysuria, urinary urgency, urinary frequency, headache, visual changes, or any other complaints. - Related Data Home Medications Medication Instructions Recorded Confirmed Atorvastatin [Lipitor] 40 mg PO HS 06/27/17 07/14/18 Docusate [Colace] 100 mg PO DAILY 06/27/17 07/14/18 Labetalol HCl 200 mg PO Q8H 06/27/17 07/14/18 Lacosamide [Vimpat] 200 mg PO BID 06/27/17 07/14/18 Multivitamin [Men's Multi-Vitamin] 1 tab PO DAILY 06/27/17 07/14/18 NIFEdipine [NIFEdipine ER] 90 mg PO DAILY 06/27/17 07/14/18 Omeprazole [PriLOSEC] 20 mg PO DAILY 06/27/17 07/14/18 Sennosides [Senna] 8.6 mg PO DAILY 06/27/17 07/14/18 Lisinopril 40 mg PO DAILY 07/14/18 07/14/18 Loratadine [Claritin] 10 mg PO DAILY 07/14/18 07/14/18 Previous Rx's Medication Instructions Recorded Insulin Glargine,Hum.rec.anlog 10 unit SQ DAILY #1 insuln.pen 07/14/18 [Basaglar Kirbyikjil U-100] Allergies Allergy/AdvReac Type Severity Reaction Status Date / Time No Known Allergies Allergy Verified 10/18/18 21:53 Review of Systems ROS Statement: Those systems with pertinent positive or pertinent negative responses have been documented in the HPI. ROS Other: All systems not noted in ROS Statement are negative. Past Medical History Past Medical History: CVA/TIA, Diabetes Mellitus, GERD/Reflux, Hyperlipidemia, Hypertension History of Any Multi-Drug Resistant Organisms: None Reported Past Surgical History: No Surgical Hx Reported Past Psychological History: No Psychological Hx Reported Smoking Status: Never smoker Past Alcohol Use History: Occasional Past Drug Use History: None Reported General Exam Limitations: no limitations General appearance: alert, in no apparent distress, other (Physical well- developed, well-nourished adult male patient in no acute distress. Vital signs upon presentation are temperature 97.6F, pulse 90, respirations 18, blood pressure 142/82, pulse ox 98% on room air.) ENT exam: Present: normal exam, normal oropharynx Respiratory exam: Present: normal lung sounds bilaterally. Absent: respiratory distress, wheezes, rales, rhonchi, stridor Cardiovascular Exam: Present: regular rate, normal rhythm, normal heart sounds. Absent: systolic murmur, diastolic murmur, rubs, gallop, clicks GI/Abdominal exam: Present: soft, normal bowel sounds. Absent: distended, tenderness, guarding, rebound, rigid Neurological exam: Present: alert, oriented X3, CN II-XII intact Psychiatric exam: Present: normal affect, normal mood Skin exam: Present: warm, dry, intact, normal color. Absent: rash Course Vital Signs 10/18/18 10/18/18 21:50 23:06 Temperature 97.6 F Pulse Rate 90 63 Respiratory 18 15 Rate Blood Pressure 142/82 O2 Sat by Pulse 98 98 Oximetry Medical Decision Making - Medical Decision Making 62-year-old male patient presented to the emergency department for evaluation after accidentally ingesting a household cleaning solution called "Odo-ban". Patient drink was approximately one hour ago. I did discuss the situation with poison control center who states that this is not dangerous for the patient. The recommended symptomatic management and dilution with drinking water. Patient was given nausea medication and instructed to dilute with fluids. Patient is resting comfortably at this time only discharged home. He is instructed to follow-up with his primary care physician for recheck in 1-2 days. Return parameters were discussed in detail. He verbalizes understanding and agrees with this plan. Disposition Clinical Impression: Accidental ingestion of substance Disposition: HOME SELF-CARE Condition: Good Additional Instructions: Increase fluids especially water. Take nausea medication as needed. Follow-up with your primary care physician for recheck in 1-2 days. Return to the emergency department immediately for any new, worsening, or concerning symptoms. Is patient prescribed a controlled substance at d/c from ED?: No Referrals: Raúl Abbott DO [Primary Care Provider] - 1-2 days Time of Disposition: 22:43
[2018-10-18 23:08] VITALS: PULSE 63; RESP 15
== END 2018-10-18 23:08 | disposition home or self-care (01) ==
LOC: EC 21:46
DX: T65.91XA Toxic effect of unspecified substance, accidental (unintentional), initial encounter (principal); R11.0 Nausea; E78.5 Hyperlipidemia, unspecified; I10 Essential (primary) hypertension; K21.9 Gastro-esophageal reflux disease without esophagitis; Z86.73 Personal history of transient ischemic attack (TIA), and cerebral infarction without residual deficits; Z79.899 Other long term (current) drug therapy
CPT/HCPCS: 99283; S0119

== ENCOUNTER → 2018-11-11 | Outpatient (CLI) | payer OTHER ==
[2018-11-11 17:29] LABS: HCT 35.5 % (39.0-53.0); HGB 11.4 gm/dL (13.0-17.5); MCH 27.8 pg (25.0-35.0); MCHC 32.2 g/dL (31.0-37.0); MCV 86.5 fL (80.0-100.0); Mean Platelet Volume 8.7; Platelet Count 119 k/uL (150-450); WBC 5.5 k/uL (3.8-10.6)
[2018-11-11 17:38] LABS: Calcium 9.2 mg/dL (8.4-10.2); Potassium 4.9 mmol/L (3.5-5.1); Total Bilirubin 0.4 mg/dL (0.2-1.3); Total Protein 7.2 g/dL (6.3-8.2)
== END | disposition home or self-care (01) ==
LOC: LABPAT 16:26
PROVIDERS: ATTEND Surgery Plastic and Reconstructive Surgery
DX: Z01.812 Encounter for preprocedural laboratory examination (principal)
CPT/HCPCS: 36415; 80053; 85027

== ENCOUNTER → 2018-11-12 | Outpatient (CLI) | payer OTHER ==
--- NOTE | 2018-11-12 13:21 | US ---
EXAMINATION TYPE: US kidneys/renal and bladder DATE OF EXAM: 11/12/2018 COMPARISON: NONE CLINICAL HISTORY: N18.3 stage 3 kidney disease. EXAM MEASUREMENTS: Right Kidney: 9.4 x 5.8 x 5.0 cm Left Kidney: 11.0 x 5.0 x 5.2 cm Right Kidney: No hydronephrosis or masses seen Left Kidney: No hydronephrosis. Lobular contour Bladder: wnl as visualized. Not fully distended Bilateral Jets seen: No There is no evidence for hydronephrosis at this point in time. No nephrolithiasis is seen. No marga s are identified. IMPRESSION: No hydronephrosis or nephrolithiasis. There is lobulation of the left renal outline.
== END | disposition home or self-care (01) ==
LOC: RADUSWWP 12:07
PROVIDERS: ATTEND Surgery Plastic and Reconstructive Surgery
DX: N18.3 Chronic kidney disease, stage 3 (moderate) (principal)
CPT/HCPCS: 76770

== ENCOUNTER 2018-11-14 05:33 | Day surgery (SDC) | payer OTHER ==
[2018-11-10 16:54] VITALS: BMI 40.3
[~2018-11-14 05:33] MED LIST: DEXAMETHASONE SOD PHOSPHATE 10 MG/ML 1 ML VIAL IV ONE; HEPARIN SODIUM,PORCINE 5,000 UNIT/ML 1 ML VIAL SQ ONE; INDOCYANINE GREEN 25 MG VIAL IV ONE; LACTATED RINGERS 1,000 ML IV SCH; LIDOCAINE 1% 20 ML VIAL (10MG/ML) FOR IV START INTRADERMA PRN; MIDAZOLAM (PF) 2 MG/2 ML VIAL IV PRN; ceFAZolin IN SWFI 2 GM/20 ML SYRINGE IVP ONE; fentaNYL (PF) 50 MCG/ML 2 ML AMP IV PRN
[2018-11-14] MEDS ORDERED: DEXAMETHASONE SOD PHOS (MDV) 100 MG/10 ML VIAL IV ONE (06:40)
[2018-11-14] MEDS ORDERED: ONDANSETRON 4 MG/2 ML VIAL IVP ONE ×2 (06:40→10:30)
[2018-11-14 06:45] LABS: Glucose,Whole Blood 118 mg/dL (75-99)
[2018-11-14] MEDS ORDERED: SUCCINYLCHOLINE CHLORIDE 100 MG/5 ML SYR IV ONE (06:55)
[2018-11-14] MEDS ORDERED: ROCURONIUM BROMIDE 10 MG/ML 10 ML VIAL IV ONE (06:55)
[2018-11-14] MEDS ORDERED: MIDAZOLAM 2 MG/2 ML VIAL ONE (06:55)
[2018-11-14] MEDS ORDERED: GLYCOPYRROLATE 0.2 MG/ML 2 ML VIAL ONE (06:55)
[2018-11-14] MEDS ORDERED: LIDOCAINE 1% INJ 10MG/ML (20 ML MDV) ONE (06:55)
[2018-11-14] MEDS ORDERED: fentaNYL (PF) 50 MCG/ML 2 ML AMP ONE (06:55)
[2018-11-14] MEDS ORDERED: NEOSTIGMINE 1 MG/ML 10 ML VIAL ONE (06:55)
[2018-11-14] MEDS ORDERED: INDOCYANINE GREEN 25 MG VIAL IV ONE (07:15)
[2018-11-14] MEDS ORDERED: BUPIVACAIN-EPI 0.5%-1:200,000 30 ML VIAL SQ ONE (07:25)
[2018-11-14] MEDS ORDERED: LACTATED RINGERS 1,000 ML IV ONE (08:24)
--- NOTE | 2018-11-14 09:11 | P.OP ---
Date of Procedure: 11/14/18 Description of Procedure: SURGEON: CYN PASTOR MD PREOPERATIVE DIAGNOSES: 1. Right upper quadrant abdominal pain 2. Chronic cholecystitis wuth gallstones 3. Diabetes type II, insulin-dependent with diabetic nephropathy 4. Hypertensive heart disease with hypertensive nephropathy 5. History of transient ischemic attack 6. Persistent lower extremity edema 7. Gastroesophageal reflux disease 8. Hyperlipidemia 9. Morbid obesity due to excess calories, BMI 40.4 POSTOPERATIVE DIAGNOSES: 1. Right upper quadrant abdominal pain 2. Previously perforated gangrenous chronic cholecystitis with cystic duct obstruction 3. Diabetes type II, insulin-dependent with diabetic nephropathy 4. Hypertensive heart disease with hypertensive nephropathy 5. History of transient ischemic attack 6. Persistent lower extremity edema 7. Gastroesophageal reflux disease 8. Hyperlipidemia 9. Morbid obesity due to excess calories, BMI 40.4 7. Fatty liver disease with hepatomegaly 8. Large incarcerated epigastric ventral hernia 9. Peritoneal adhesions at epigastrium, omentum to abdominal wall OPERATION: Robotic-assisted da Gemini Xi laparoscopic cholecystectomy, multiport with FIREFLY ESTIMATED BLOOD LOSS: 5 mL. SPECIMENS REMOVED: Gallbladder. COMPLICATIONS: None. OPERATIVE FINDINGS: 1. Previous gallbladder perforation with chronic sinus into liver bed 2. Incarcerated ventral epigastric hernia prohibiting view of liver 3. Ports repositioned along right upper quadrant 4. Additional port above umbilicus for placement 5. Paste-like gallbladder bile 6. Contaminated case. 7. Optifoam placed along right upper quadrant pain 8. Gallbladder with abnormal contour and intrahepatic INDICATIONS: The patient is a 62-year-old male who presents with right upper quadrant abdominal pain including history of cholecystitis. His history is complicated by morbid obesity including diabetes and history of transient ischemic attack. Surgical intervention with a laparoscopic cholecystectomy was described at length including injury to the biliary tree, bleeding, infection, need for further surgery. Informed consent was obtained. Robotic assisted laparoscopic approach was described. Benefits and risks of the procedure including but not limited to bleeding, infection, injury to the biliary tree was described. Informed consent was obtained. DESCRIPTION OF PROCEDURE: Patient was brought to the operating room, placed in supine position. After general induction, the abdomen had been prepped and draped in standard sterile fashion. The robotic da Gemini XI system was primed. After a timeout protocol was performed, the patient had been prepped and draped in standard sterile fashion. The patient was injected with indocyanine green. A 5 mm 0 degrees laparoscopic trocar entry was performed along the left upper quadrant. The abdomen insufflated to 15 mmHg pressure which was tolerated well. Diagnostic laparoscopy demonstrated no injury to bowel viscera or mesentery. The epigastrium and liver was obscured by a large incarcerated epigastric ventral hernia involving omentum. Next, two 8 mm robotic ports were placed along the right upper abdomen. Another two 8 mm ports were positioned distal to the large ventral. Please note that the ports were placed at least 10 to 15 cm away from the target anatomy of the gallbladder. The liver surface was remarkable for mild hepatomegaly. The gallbladder had abnormal contour and intrahepatic adding complexity to the case. The robot was docked along the left lateral abdomen. The patient was repositioned in reverse Trendelenburg position. Graspers, hook cautery, and vessel sealer were used as the robotic system was do cked and primed as described. Instruments were interchanged by the purchasing assistant including hook cautery, Bovie cautery and clip appliers. I had sat at the console. Gallbladder was largely intrahepatic along the fundus whereby vessel sealer was used to resect the gallbladder from the hepatic bed however an intrahepatic sinus was identified consistent with previously perforated gallbladder. The bile was paste-like and yellow. A combination of dome-down technique was used to decrease any injury to the common bile duct and to identify the cystic duct. The gallbladder fundus was retracted over the dome of the liver. Initial attention was brought to the infundibulum which was gently retracted in the inferior lateral approach. Using a grasper, the cystic duct including the cystic artery was carefully skeletonized. FIREFLY was used to identify the cystic artery and cystic structures. Large PLASTIC clips were used throughout the entire case. Two 2 clips were placed proximally, and 1 clip was placed distally along the cystic duct and then cauterized with the cautery. Again care was taken to avoid any injury to the biliary tree. Next, the cystic artery was similarly clipped and cauterized. Electro-Bovie cautery ane vesseal sealer were used to remove the gallbladder from the hepatic fossa. Hemostasis was checked and found to be adequate. The robot was undocked. I re-scrubbed into the case. Using a 10 mm Endo Catch bag via the mid right upper quadrant incision, the specimen was removed from the abdominal cavity. All pneumoperitoneum instruments were evacuated from the abdominal cavity. The incisions were reapproximated using 4-0 Monocryl in an interrupted subcuticular fashion. Fascial defects were less than 8 mm in size. Please note along the trocar sites, local anesthetic was placed as a field block prior to insertion of all instruments. Liquid glue was applied to the skin. At the end of the procedure needle, sponge, and instrument count had been verified correct by the surgical orderly. The patient was transferred to postanesthesia care unit in stable condition. Intraoperative films were shared with the patient's family who were very pleased with the level of care. Postoperative including five-day antibiotics was described to decrease risk for postoperative wound infection. Console time 46 minutes
[2018-11-14 09:33] VITALS: TEMP 97.5
[2018-11-14 09:40] VITALS: RESP 16
[2018-11-14 10:24] LABS: Glucose,Whole Blood 160 mg/dL (75-99)
[2018-11-14] MEDS ORDERED: KETOROLAC 30 MG/ML 1 ML VIAL IVP ONE (10:35)
[2018-11-14 11:30] VITALS: BP 132/81; PULSE 74
--- NOTE | 2018-11-14 12:42 | P.GSHP ---
History of Present Illness H&P Date: 11/14/18 CHIEF COMPLAINT: Cholecystitis HISTORY OF PRESENT ILLNESS: The patient is a 62-year-old male who presents with history of epigastric including right upper quadrant abdominal pain. He underwent diagnostic studies for her gallbladder. Separately clinical picture was consistent with cholecystitis. Now she presents for surgical intervention. PAST MEDICAL HISTORY: Please see list PAST SURGICAL HISTORY: Please see list MEDICATIONS: Please see list ALLERGIES: Denies. SOCIAL HISTORY: No illicit drug use or recent tobacco use FAMILY HISTORY: Pertinent for gallbladder disease REVIEW OF ORGAN SYSTEMS: CONSTITUTIONAL: No reports of fevers or chills. HEENT: Denies any troubles with the vision or hearing. PHYSICAL EXAM: VITAL SIGNS: Afebrile vital signs stable GENERAL: Well-developed pleasant in no acute distress. HEENT: No scleral icterus. Extraocular movements grossly intact. Moist buccal mucosa. NECK: Supple without lymphadenopathy. CHEST: Unlabored respirations. Equal bilateral excursions. CARDIOVASCULAR: Regular rate regular rhythm rhythm. Distal 2+ pulses. ABDOMEN: Soft, nondistended. Tender along the epigastrium and right upper quadrant. MUSCULOSKELETAL: No clubbing, cyanosis, or edema. NEURO: Cranial nerves II to XII within normal limits. No focal or lateralizing signs. PSYCH: Alert and oriented to person, place and time. SKIN: Well-perfused good skin turgor. ASSESSMENT: 1. Epigastric and right upper quadrant abdominal pain 2. Chronic cholecystitis 3. Symptomatic gallstones. PLAN: 1. Will need a robotic cholecystectomy possible open. Benefits and risks were described. 2. Heparin for DVT prophylaxis 5000 units. 3. Antibiotic prophylaxis. Past Medical History Past Medical History: CVA/TIA, Diabetes Mellitus, GERD/Reflux, Hyperlipidemia, Hypertension Additional Past Medical History / Comment(s): CVA 2017. TINNITUS. BACK ISSUES, IN PT 2X PER WK. PAIN, NT IN RT HAND. LAST SEIZURE, UNKNOWN. OCC EDEMA FEET/LOWER LEGS, WEARS SUPPORT SOCKS. GALLSTONES. History of Any Multi-Drug Resistant Organisms: None Reported Past Surgical History: No Surgical Hx Reported Additional Past Surgical History / Comment(s): HX SURGERY KRISTIN FEET/ANKLES D/T INJURY. Past Anesthesia/Blood Transfusion Reactions: No Reported Reaction Past Alcohol Use History: Occasional - Past Family History Sister(s) Family Medical History: Cancer Medications and Allergies Home Medications Medication Instructions Recorded Confirmed Type Docusate [Colace] 100 mg PO DAILY PRN 06/27/17 11/14/18 History Labetalol HCl 200 mg PO Q8H 06/27/17 11/14/18 History NIFEdipine [NIFEdipine ER] 90 mg PO DAILY 06/27/17 11/14/18 History Omeprazole [PriLOSEC] 40 mg PO DAILY 06/27/17 11/14/18 History Lisinopril 40 mg PO DAILY 07/14/18 11/14/18 History Loratadine [Claritin] 10 mg PO DAILY 07/14/18 11/14/18 History Gabapentin [Neurontin] 400 mg PO TID 11/12/18 11/14/18 History Melatonin 3 mg PO HS 11/12/18 11/14/18 History Insulin Glargine,Hum.rec.anlog 10 unit SQ QAM 11/13/18 11/14/18 History [Basaglar Kwikpen U-100] Lacosamide [Vimpat] 200 mg PO BID 11/13/18 11/14/18 History Amoxic-Pot Clav 875-125Mg 1 each PO Q12HR #10 tab 11/14/18 Rx [Augmentin 875-125] HYDROcodone/APAP 5-325MG [[place] 1 tab PO Q6HR PRN 3 Days #10 tab 11/14/18 Rx 5-325] Allergies Allergy/AdvReac Type Severity Reaction Status Date / Time No Known Allergies Allergy Verified 11/14/18 06:16 Surgical - Exam Vital Signs Temp Pulse Resp BP Pulse Ox 97.8 F 78 16 152/70 98 11/14/18 06:31 11/14/18 06:31 11/14/18 06:31 11/14/18 06:31 11/14/18 06:31 Results - Labs Abnormal Lab Results - Last 24 Hours (Table) 11/14/18 11/14/18 Range/Units 06:29 10:11 POC Glucose (mg/dL) 118 H 160 H (75-99) mg/dL
== END 2018-11-14 11:55 | disposition home or self-care (01) ==
LOC: OR 05:33
PROVIDERS: ATTEND Surgery Plastic and Reconstructive Surgery
DX: K80.11 Calculus of gallbladder with chronic cholecystitis with obstruction (principal); N28.9 Disorder of kidney and ureter, unspecified; E78.5 Hyperlipidemia, unspecified; K21.9 Gastro-esophageal reflux disease without esophagitis; G40.909 Epilepsy, unspecified, not intractable, without status epilepticus; E11.21 Type 2 diabetes mellitus with diabetic nephropathy; E66.01 Morbid (severe) obesity due to excess calories; I13.10 Hypertensive heart and chronic kidney disease without heart failure, with stage 1 through stage 4 chronic kidney disease, or unspecified chronic kidney disease; K43.6 Other and unspecified ventral hernia with obstruction, without gangrene; K76.0 Fatty (change of) liver, not elsewhere classified; K80.10 Calculus of gallbladder with chronic cholecystitis without obstruction; Z68.41 Body mass index [BMI] 40.0-44.9, adult; Z86.73 Personal history of transient ischemic attack (TIA), and cerebral infarction without residual deficits; Z79.891 Long term (current) use of opiate analgesic; Z79.899 Other long term (current) drug therapy; Z79.4 Long term (current) use of insulin
CPT/HCPCS: 88304; 47562; J2250; J1644; J2710; J2405; J2001; J3010; J1885; J1100; J0330; J0690

== ENCOUNTER → 2019-02-20 | Outpatient (CLI) | payer OTHER ==
[2019-02-20 10:45] LABS: Appearance,Urine Clear (Clear); Bilirubin,Urine Negative (Negative); Blood,Urine Negative (Negative); Color,Urine Yellow; Glucose,Urine (UA) Negative (Negative); Ketones,Urine Negative (Negative); Leukocyte Esterase,Urine Negative (Negative); Nitrite,Urine Negative (Negative); Protein,Urine Negative (Negative); Specific Gravity,Urine 1.014 (1.001-1.035); Urobilinogen,Urine <2.0 mg/dL (<2.0)
[2019-02-20 10:55] LABS: Basophils % (A) 1 %; Eosinophils # (A) 0.2 k/uL (0-0.7); Eosinophils % (A) 5 %; HCT 37.7 % (39.0-53.0); HGB 12.1 gm/dL (13.0-17.5); Lymphocytes # (A) 1.3 k/uL (1.0-4.8); Lymphocytes % (A) 30 %; MCH 27.8 pg (25.0-35.0); MCHC 32.1 g/dL (31.0-37.0); MCV 86.8 fL (80.0-100.0); Mean Platelet Volume 8.2; Monocytes # (A) 0.3 k/uL (0-1.0); Monocytes % (A) 6 %; Neutrophils # (A) 2.4 k/uL (1.3-7.7); Neutrophils % (A) 56 %; Platelet Count 125 k/uL (150-450); RBC 4.34 m/uL (4.30-5.90); RDW 13.2 % (11.5-15.5); WBC 4.4 k/uL (3.8-10.6)
--- NOTE | 2019-02-20 11:06 | XR ---
EXAMINATION TYPE: XR Hip Complete LT DATE OF EXAM: 02/20/2019 COMPARISON: NONE HISTORY: Pain TECHNIQUE: 2 views submitted FINDINGS: There is no evidence of erosive change or acute fracture. Concentric moderate narrowing the joint space. Hypertrophic change of the acetabulum. Vascular calcif ications noted. IMPRESSION: 1. 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
[2019-02-20 16:18] LABS: Iron Saturation 16.61 (15.00-50.00)
[2019-02-20 16:24] LABS: African American GFR (CKD) 66.8 (60.0-200.0); Albumin 4.1 g/dL (3.80-4.90); Albumin/Globulin Ratio 1.64 (1.60-3.17); Anion Gap 10.6 mmol/L (4.00-12.00); BUN/Creat Ratio 17.69 Ratio (12.00-20.00); Calcium 8.8 mg/dL (8.7-10.3); Carbon Dioxide 21.4 mmol/L (21.6-31.8); Globulin 2.5 g/dL (1.6-3.3); Magnesium 1.9 mg/dL (1.5-2.4); Phosphorus 3.3 mg/dL (2.4-5.1); Potassium 4.2 mmol/L (3.5-5.5); Total Bilirubin 0.2 mg/dL (0.3-1.2); Total Protein 6.6 g/dL (6.2-8.2); Uric Acid 8.1 mg/dL (3.7-8.7)
[2019-02-20 17:05] LABS: Hemoglobin A1C 7.1 % (4.0-6.0)
[2019-02-20 17:27] LABS: Vitamin D 25 Hydroxy 15.6 ng/mL (30.0-100.0)
[2019-02-20 18:02] LABS: Parathyroid Hormone Intact 115.7 pg/mL (14.0-72.0)
== END | disposition home or self-care (01) ==
LOC: LABWHC1 10:02
PROVIDERS: ATTEND Family Medicine
DX: M25.552 Pain in left hip (principal); D64.9 Anemia, unspecified; N39.0 Urinary tract infection, site not specified; R80.9 Proteinuria, unspecified; N25.81 Secondary hyperparathyroidism of renal origin; E55.9 Vitamin D deficiency, unspecified; M10.9 Gout, unspecified; N18.3 Chronic kidney disease, stage 3 (moderate)
CPT/HCPCS: 36415; 73502; 80053; 81003; 82043; 82306; 82570; 82728; 83036; 83540; 83550; 83735; 83970; 84100; 84153; 84550; 85025

== ENCOUNTER 2019-02-25 01:12 | Emergency (ER) | payer OTHER ==
[2019-02-25 01:23] VITALS: TEMP 98
[2019-02-25] MEDS ORDERED: SODIUM CHLORIDE 0.9% 500 ML 500 ML IV STA (02:12)
--- NOTE | 2019-02-25 02:37 | XR ---
EXAM: XR Chest, 2 Views CLINICAL HISTORY: ITS.REASON XR Reason: abdominal pain TECHNIQUE: Frontal and lateral views of the chest. COMPARISON: No relevant prior studies available. FINDINGS: Lungs: Mild discoid atelectasis versus scarring at the periphery of the left lower lung. Pleural space: Unremarkable. No pneumothorax. Heart: Unremarkable. No cardiomegaly. Mediastinum: Unremarkable. Bones/joints: Mild degenerative changes of spine. IMPRESSION: No acute disease.
--- NOTE | 2019-02-25 02:38 | XR ---
EXAM: XR Abdomen, 1 View CLINICAL HISTORY: ITS.REASON XR Reason: abdominal pain TECHNIQUE: Frontal supine view of the abdomen/pelvis. COMPARISON: KUB 03/04/18 FINDINGS: Gastrointestinal tract: Unremarkable. No dilation. Bones/joints: Unremarkable. IMPRESSION: Normal abdominal x-ray.
[2019-02-25 02:53] LABS: Basophils # (A) 0.1 k/uL (0-0.2); Basophils % (A) 1 %; Eosinophils # (A) 0.3 k/uL (0-0.7); Eosinophils % (A) 4 %; HGB 12.3 gm/dL (13.0-17.5); Lymphocytes # (A) 2.6 k/uL (1.0-4.8); Lymphocytes % (A) 37 %; MCH 28.3 pg (25.0-35.0); MCHC 33.3 g/dL (31.0-37.0); MCV 84.8 fL (80.0-100.0); Monocytes # (A) 0.4 k/uL (0-1.0); Monocytes % (A) 6 %; Neutrophils # (A) 3.5 k/uL (1.3-7.7); Neutrophils % (A) 50 %; Platelet Count 128 k/uL (150-450); RBC 4.36 m/uL (4.30-5.90); RDW 14.5 % (11.5-15.5)
[2019-02-25 03:02] LABS: Appearance,Urine Clear (Clear); Bilirubin,Urine Negative (Negative); Blood,Urine Negative (Negative); Color,Urine Light Yellow; Glucose,Urine (UA) Negative (Negative); Ketones,Urine Negative (Negative); Leukocyte Esterase,Urine Negative (Negative); Nitrite,Urine Negative (Negative); PH, Urine 5.5 (5.0-8.0); Protein,Urine Negative (Negative); Specific Gravity,Urine 1.013 (1.001-1.035); Urobilinogen,Urine <2.0 mg/dL (<2.0)
[2019-02-25 03:02] LABS: Albumin 4.2 g/dL (3.5-5.0); Calcium 8.9 mg/dL (8.4-10.2); Potassium 4.5 mmol/L (3.5-5.1); Total Bilirubin 0.3 mg/dL (0.2-1.3); Total Protein 7.6 g/dL (6.3-8.2)
[2019-02-25 03:06] VITALS: BP 108/62; PULSE 68; RESP 16
--- NOTE | 2019-02-25 03:40 | ED ---
General Adult HPI - General Chief complaint: Nausea/Vomiting/Diarrhea Stated complaint: Vomiting, shaking Time Seen by Provider: 02/25/19 01:32 Source: patient, RN notes reviewed, old records reviewed Mode of arrival: EMS Limitations: no limitations - History of Present Illness Initial comments: 63-year-old male patient presents to ED with chief complaint of nausea vomiting and diarrhea. Patient currently is working about his sleep with nausea, 2 episodes of emesis, one episode of diarrhea, patient was for states it feel shaky for this time. Patient reports that after he experienced this he began to improve. Patient is currently asymptomatic at time of evaluation. Patient does a past medical history of CVA, type 2 diabetes, hypertension, hyperlipidemia. Systemic: Pt denies fatigue, fever/chills, rash. Pt denies weakness, night sweats, weight loss. Neuro: Pt denies headache, visual disturbances, syncope or pre-syncope. HEENT: Pt denies ocular discharge or irritation, otalgia, rhinorrhea, pharyngitis or notable lymphadenopathy. Cardiopulmonary: Pt denies chest pain, SOB, heart palpitations, dyspnea on exertion. Abdominal/GI: Pt denies abdominal pain, n/v/d. : Pt denies dysuria, burning w/ urination, frequency/urgency. Denies new onset urinary or bowel incontinence. MSK: Pt denies myalgia, loss of strength or function in extremities. Neuro: Pt denies new onset weakness, paresthesias. - Related Data Home Medications Medication Instructions Recorded Confirmed Docusate [Colace] 100 mg PO DAILY PRN 06/27/17 11/14/18 Labetalol HCl 200 mg PO Q8H 06/27/17 11/14/18 NIFEdipine [NIFEdipine ER] 90 mg PO DAILY 06/27/17 11/14/18 Omeprazole [PriLOSEC] 40 mg PO DAILY 06/27/17 11/14/18 Lisinopril 40 mg PO DAILY 07/14/18 11/14/18 Loratadine [Claritin] 10 mg PO DAILY 07/14/18 11/14/18 Gabapentin [Neurontin] 400 mg PO TID 11/12/18 11/14/18 Melatonin 3 mg PO HS 11/12/18 11/14/18 Insulin Glargine,Hum.rec.anlog 10 unit SQ QAM 11/13/18 11/14/18 [Basaglar Kwikpen U-100] Lacosamide [Vimpat] 200 mg PO BID 11/13/18 11/14/18 Previous Rx's Medication Instructions Recorded Amoxic-Pot Clav 875-125Mg 1 each PO Q12HR #10 tab 11/14/18 [Augmentin 875-125] HYDROcodone/APAP 5-325MG [[place] 1 tab PO Q6HR PRN 3 Days #10 tab 11/14/18 5-325] Allergies Allergy/AdvReac Type Severity Reaction Status Date / Time No Known Allergies Allergy Verified 11/14/18 06:16 Review of Systems ROS Statement: Those systems with pertinent positive or pertinent negative responses have been documented in the HPI. ROS Other: All systems not noted in ROS Statement are negative. Past Medical History Past Medical History: CVA/TIA, Diabetes Mellitus, GERD/Reflux, Hyperlipidemia, Hypertension Additional Past Medical History / Comment(s): CVA 2017. TINNITUS. BACK ISSUES, IN PT 2X PER [facility]K. PAIN, NT IN RT HAND. LAST SEIZURE, UNKNOWN. OCC EDEMA FEET/LOWER LEGS, WEARS SUPPORT SOCKS. GALLSTONES. History of Any Multi-Drug Resistant Organisms: None Reported Past Surgical History: No Surgical Hx Reported Additional Past Surgical History / Comment(s): HX SURGERY KRISTIN FEET/ANKLES D/T INJURY. Past Anesthesia/Blood Transfusion Reactions: No Reported Reaction Past Psychological History: No Psychological Hx Reported Smoking Status: Never smoker Past Alcohol Use History: Occasional Past Drug Use History: None Reported - Past Family History Sister(s) Family Medical History: Cancer General Exam - General Exam Comments Initial Comments: Constitutional: NAD, AOX3, Pt has pleasant affect. HEENT: NC/AT, trachea midline, neck supple, no lymphadenopathy. Posterior pharynx non erythematous, without exudates. External ears appear normal, without discharge. Mucous membranes moist. Eyes PERRLA, EOM intact. There is no scleral icterus. No pallor noted. Cardiopulmonary: RRR, no murmurs, rubs or gallops, no JVD noted. Lungs CTAB in anterior and posterior gabriel. No peripheral edema. Abdominal exam: Abdomen soft and non-distended. Abdomen non-tender to palpation in all 4 quadrants. Bowel sounds active in LLQ. No hepatosplenomegaly. No ecchymosis Neuro: CN II-XII grossly intact. No nuchal rigidity. No raccon eyes, no moreno sign, no hemotympanum. No cervical spinal tenderness. MSK: No posterior calf tenderness bilaterally, homans sign negative bilaterally. Posterior tibialis and radial pulse +2 bilaterally. Sensation intact in upper and lower extremities. Full active ROM in upper and lower extremities, 5/5 stregnth. Limitations: no limitations Course Vital Signs 02/25/19 02/25/19 01:20 03:03 Temperature 98.0 F Pulse Rate 91 68 Respiratory 19 16 Rate Blood Pressure 122/81 108/62 O2 Sat by Pulse 99 98 Oximetry Medical Decision Making - Medical Decision Making 63-year-old male patient presents to ED after nausea vomiting diarrhea. Patient vital signs stable, afebrile. Physical exam did not acute pathology. Laboratory investigations are noncompressive. KUB, chest x-ray did not display acute pathology. Patient is being asymptomatic. Patient likely experiencing mild gastroenteritis-like syndrome. Patient was discharged, will follow up with primary care provider. Will return to ER if condition worsens. Case discussed with Dr. Muñoz. - Lab Data Result diagrams: 02/25/19 02:40 02/25/19 02:40 Lab Results 02/25/19 02/25/19 02/25/19 Range/Units 02:40 02:40 02:40 WBC 7.0 (3.8-10.6) k/uL RBC 4.36 (4.30-5.90) m/uL Hgb 12.3 L (13.0-17.5) gm/dL Hct 37.0 L (39.0-53.0) % MCV 84.8 (80.0-100.0) fL MCH 28.3 (25.0-35.0) pg MCHC 33.3 (31.0-37.0) g/dL RDW 14.5 (11.5-15.5) % Plt Count 128 L (150-450) k/uL Neutrophils % 50 % Lymphocytes % 37 % Monocytes % 6 % Eosinophils % 4 % Basophils % 1 % Neutrophils # 3.5 (1.3-7.7) k/uL Lymphocytes # 2.6 (1.0-4.8) k/uL Monocytes # 0.4 (0-1.0) k/uL Eosinophils # 0.3 (0-0.7) k/uL Basophils # 0.1 (0-0.2) k/uL Sodium 143 (137-145) mmol/L Potassium 4.5 (3.5-5.1) mmol/L Chloride 110 H (98-107) mmol/L Carbon Dioxide 22 (22-30) mmol/L Anion Gap 11 mmol/L BUN 16 (9-20) mg/dL Creatinine 1.17 (0.66-1.25) mg/dL Est GFR (CKD-EPI)AfAm 76 (>60 ml/min/1.73 sqM) Est GFR (CKD-EPI)NonAf 65 (>60 ml/min/1.73 sqM) Glucose 177 H (74-99) mg/dL Plasma Lactic Acid [place] 1.4 (0.7-2.0) mmol/L Calcium 8.9 (8.4-10.2) mg/dL Total Bilirubin 0.3 (0.2-1.3) mg/dL AST 28 (17-59) U/L ALT 29 (21-72) U/L Alkaline Phosphatase 74 (38-126) U/L Troponin I (0.000-0.034) ng/mL Total Protein 7.6 (6.3-8.2) g/dL Albumin 4.2 (3.5-5.0) g/dL Lipase 165 (23-300) U/L Urine Color Urine Appearance (Clear) Urine pH (5.0-8.0) Ur Specific [place] (1.001-1.035) Urine Protein (Negative) Urine Glucose (UA) (Negative) Urine Ketones (Negative) Urine Blood (Negative) Urine Nitrite (Negative) Urine Bilirubin (Negative) Urine Urobilinogen (<2.0) mg/dL Ur Leukocyte Esterase (Negative) 02/25/19 02/25/19 Range/Units 02:40 02:53 WBC (3.8-10.6) k/uL RBC (4.30-5.90) m/uL Hgb (13.0-17.5) gm/dL Hct (39.0-53.0) % MCV (80.0-100.0) fL MCH (25.0-35.0) pg MCHC (31.0-37.0) g/dL RDW (11.5-15.5) % Plt Count (150-450) k/uL Neutrophils % % Lymphocytes % % Monocytes % % Eosinophils % % Basophils % % Neutrophils # (1.3-7.7) k/uL Lymphocytes # (1.0-4.8) k/uL Monocytes # (0-1.0) k/uL Eosinophils # (0-0.7) k/uL Basophils # (0-0.2) k/uL Sodium (137-145) mmol/L Potassium (3.5-5.1) mmol/L Chloride (98-107) mmol/L Carbon Dioxide (22-30) mmol/L Anion Gap mmol/L BUN (9-20) mg/dL Creatinine (0.66-1.25) mg/dL Est GFR (CKD-EPI)AfAm (>60 ml/min/1.73 sqM) Est GFR (CKD-EPI)NonAf (>60 ml/min/1.73 sqM) Glucose (74-99) mg/dL Plasma Lactic Acid [place] (0.7-2.0) mmol/L Calcium (8.4-10.2) mg/dL Total Bilirubin (0.2-1.3) mg/dL AST (17-59) U/L ALT (21-72) U/L Alkaline Phosphatase (38-126) U/L Troponin I <0.012 (0.000-0.034) ng/mL Total Protein (6.3-8.2) g/dL Albumin (3.5-5.0) g/dL Lipase (23-300) U/L Urine Color Light Yellow Urine Appearance Clear (Clear) Urine pH 5.5 (5.0-8.0) Ur Specific [place] 1.013 (1.001-1.035) Urine Protein Negative (Negative) Urine Glucose (UA) Negative (Negative) Urine Ketones Negative (Negative) Urine Blood Negative (Negative) Urine Nitrite Negative (Negative) Urine Bilirubin Negative (Negative) Urine Urobilinogen <2.0 (<2.0) mg/dL Ur Leukocyte Esterase Negative (Negative) Disposition Clinical Impression: Nausea and vomiting Disposition: HOME SELF-CARE Condition: Stable Instructions (If sedation given, give patient instructions): Acute Nausea and Vomiting (ED) Additional Instructions: Patient to adhere to previously discussed treatment plan and will take medication(s) as directed. Patient to follow up with PCP in 1-2 days. Patient to return to ED if symptoms do not improve. Follow-up with primary care provider, return to ER if condition worsens. Is patient prescribed a controlled substance at d/c from ED?: No Referrals: Raúl Abbott DO [Primary Care Provider] - 1-2 days
== END 2019-02-25 03:48 | disposition home or self-care (01) ==
LOC: EC 01:12
DX: R11.2 Nausea with vomiting, unspecified (principal); R19.7 Diarrhea, unspecified; E11.9 Type 2 diabetes mellitus without complications; K21.9 Gastro-esophageal reflux disease without esophagitis; E78.5 Hyperlipidemia, unspecified; I10 Essential (primary) hypertension; Z86.73 Personal history of transient ischemic attack (TIA), and cerebral infarction without residual deficits; Z79.4 Long term (current) use of insulin; Z79.899 Other long term (current) drug therapy
CPT/HCPCS: 36415; 71046; 74018; 80053; 81003; 83605; 83690; 84484; 85025; 96360; 99284

== ENCOUNTER 2019-03-22 03:29 | Emergency (ER) | payer OTHER ==
[2019-03-22 03:41] VITALS: BP 137/84; PULSE 82; RESP 18; TEMP 98.4
[2019-03-22] MEDS ORDERED: SODIUM CHLORIDE 0.9% 1,000 ML IV ONE (04:57)
--- NOTE | 2019-03-22 04:59 | ED ---
General Adult HPI - General Chief complaint: Neuro Symptoms/Deficit Stated complaint: Dizziness Time Seen by Provider: 03/22/19 03:46 Source: patient Mode of arrival: wheelchair Limitations: no limitations - History of Present Illness Initial comments: Herbert is a 63-year-old gentleman with extensive past medical history most significant for previous stroke for which he was subsequently placed on Vimpat for seizure prophylaxis. Patient reports that he has ran out of his Vimpat approximately one week ago, he has contacted his neurologist who is advised him that his primary care physician we'll refill this medication, however he reports his primary care physician is advised that his neurologist we'll refill this and due to the miscommunication the patient has been without medications for nearly a week. Patient reports that he went to bed and his usual state of health but woke up feeling somewhat shaky and slightly lightheaded. Patient reports he felt somewhat dizzy which she has experienced in the past however given that he hasn't had his medications he became concerned that he may have a seizure so he came to the ER for evaluation. Patient denies any associated headache, vision changes, although speech or swallowing, any focal neurologic deficits weaknesses he denies any chest pain palpitation shortness of breath nausea vomiting or change in bowel or bladder habits. Patient reports that he is only concerned that he is out of his medication. - Related Data Home Medications Medication Instructions Recorded Confirmed Docusate [Colace] 100 mg PO DAILY PRN 06/27/17 03/16/19 Labetalol HCl 200 mg PO Q8H 06/27/17 03/16/19 NIFEdipine [NIFEdipine ER] 90 mg PO DAILY 06/27/17 03/16/19 Omeprazole [PriLOSEC] 40 mg PO DAILY 06/27/17 03/16/19 Lisinopril 40 mg PO DAILY 07/14/18 03/16/19 Loratadine [Claritin] 10 mg PO DAILY 07/14/18 03/16/19 Gabapentin [Neurontin] 400 mg PO TID 11/12/18 03/16/19 Melatonin 3 mg PO HS 11/12/18 03/16/19 Insulin Glargine,Hum.rec.anlog 10 unit SQ QAM 11/13/18 03/16/19 [[place] U-100] Lacosamide [Vimpat] 200 mg PO BID 11/13/18 03/16/19 Previous Rx's Medication Instructions Recorded Amoxic-Pot Clav 875-125Mg 1 each PO Q12HR #10 tab 11/14/18 [Augmentin 875-125] HYDROcodone/APAP 5-325MG [[place] 1 tab PO Q6HR PRN 3 Days #10 tab 11/14/18 5-325] Lacosamide [Vimpat] 100 mg PO BID 14 Days #28 tab 03/22/19 Allergies Allergy/AdvReac Type Severity Reaction Status Date / Time No Known Allergies Allergy Verified 03/16/19 12:50 Review of Systems ROS Statement: Those systems with pertinent positive or pertinent negative responses have been documented in the HPI. ROS Other: All systems not noted in ROS Statement are negative. Past Medical History Past Medical History: Blood Disorder, CVA/TIA, Diabetes Mellitus, GERD/Reflux, Hyperlipidemia, Hypertension, Renal Disease, Seizure Disorder Additional Past Medical History / Comment(s): CVA 2017. PAIN, NT IN RT HAND. LAST SEIZURE, UNKNOWN. OCC EDEMA FEET/LOWER LEGS, WEARS SUPPORT SOCKS. GALLSTONES. iron deficiency anemia. History of Any Multi-Drug Resistant Organisms: None Reported Past Surgical History: Orthopedic Surgery Additional Past Surgical History / Comment(s): HX SURGERY KRISTIN FEET/ANKLES D/T INJURY. Past Anesthesia/Blood Transfusion Reactions: No Reported Reaction Past Psychological History: No Psychological Hx Reported Smoking Status: Former smoker - Past Family History Sister(s) Family Medical History: Cancer General Exam - General Exam Comments Initial Comments: Physical Exam GENERAL: Patient is well-developed and well-nourished. Patient is nontoxic and well- hydrated and is in no distress. HENT: Normocephalic, Atraumatic. EYES: PERRL, EOMI PULMONARY: Unlabored respirations. No audible rales rhonchi or wheezing was noted. CARDIOVASCULAR: There is a regular rate and rhythm without any murmurs gallops or rubs. ABDOMEN: Soft and nontender with normal bowel sounds. SKIN: Skin is clear with no lesions or rashes and otherwise unremarkable. : Deferred NEUROLOGIC: Patient is alert and oriented x3. Moving all extremities spontaneously Cranial nerves II through XII grossly intact Normal speech, volume and content Coordination normal, normal finger to nose, normal heel barnett MUSCULOSKELETAL: Normal extremities with adequate strength and full range of motion. No lower extremity swelling or edema. No calf tenderness. PSYCHIATRIC: Normal psychiatric evaluation. Limitations: no limitations Course Vital Signs 03/22/19 03:37 Temperature 98.4 F Pulse Rate 82 Respiratory 18 Rate Blood Pressure 137/84 O2 Sat by Pulse 98 Oximetry Medical Decision Making - Medical Decision Making The patient was seen and evaluated, history is obtained from the patient who expresses concern that he has been out of his antiseizure medications for nearly a week and feels somewhat shaky and dizzy and concerned that he may have a seizure though he doesn't recall ever having a seizure in the past. Physical exam is unremarkable, neurologic exam is unremarkable CBC and CMP are patient's baseline, patient's chronic anemia for which she is scheduled to follow up with general surgery for colonoscopy Patient was reevaluated after receiving his dose of impact he sleeping comfortably upon waking he reports he is feeling better and is comfortable the plan to go home with a prescriptive for Vimpat for 2 weeks so he can follow up with primary care and neurology to decide who will be writing for his prescription All questions pertaining care were answered return parameters were discussed patient was discharged home in stable condition - Lab Data Result diagrams: 03/22/19 05:30 03/22/19 05:30 Lab Results 03/22/19 03/22/19 Range/Units 05:30 05:30 WBC 5.9 (3.8-10.6) k/uL RBC 4.09 L (4.30-5.90) m/uL Hgb 11.8 L (13.0-17.5) gm/dL Hct 35.9 L (39.0-53.0) % MCV 87.8 (80.0-100.0) fL MCH 28.8 (25.0-35.0) pg MCHC 32.8 (31.0-37.0) g/dL RDW 13.5 (11.5-15.5) % Plt Count 112 L (150-450) k/uL Neutrophils % 53 % Lymphocytes % 34 % Monocytes % 6 % Eosinophils % 4 % Basophils % 1 % Neutrophils # 3.2 (1.3-7.7) k/uL Lymphocytes # 2.0 (1.0-4.8) k/uL Monocytes # 0.4 (0-1.0) k/uL Eosinophils # 0.2 (0-0.7) k/uL Basophils # 0.1 (0-0.2) k/uL Sodium 141 (137-145) mmol/L Potassium 4.3 (3.5-5.1) mmol/L Chloride 110 H (98-107) mmol/L Carbon Dioxide 21 L (22-30) mmol/L Anion Gap 10 mmol/L BUN 15 (9-20) mg/dL Creatinine 1.15 (0.66-1.25) mg/dL Est GFR (CKD-EPI)AfAm 78 (>60 ml/min/1.73 sqM) Est GFR (CKD-EPI)NonAf 67 (>60 ml/min/1.73 sqM) Glucose 151 H (74-99) mg/dL Calcium 8.5 (8.4-10.2) mg/dL Magnesium 2.2 (1.6-2.3) mg/dL Total Bilirubin 0.3 (0.2-1.3) mg/dL AST 28 (17-59) U/L ALT 25 (21-72) U/L Alkaline Phosphatase 61 (38-126) U/L Total Protein 6.9 (6.3-8.2) g/dL Albumin 3.7 (3.5-5.0) g/dL Disposition Clinical Impression: Noncompliance with medication regimen Disposition: ADMITTED IP TO THIS HOSP Condition: Stable Prescriptions: Lacosamide [Vimpat] 100 mg PO BID 14 Days #28 tab Is patient prescribed a controlled substance at d/c from ED?: No Referrals: Raúl Abbott DO [Primary Care Provider] - 1-2 days
[2019-03-22] MEDS ORDERED: LACOSAMIDE 50 MG TABLET PO ONE (05:00)
[2019-03-22 05:39] LABS: Basophils # (A) 0.1 k/uL (0-0.2); Basophils % (A) 1 %; Eosinophils # (A) 0.2 k/uL (0-0.7); Eosinophils % (A) 4 %; HCT 35.9 % (39.0-53.0); HGB 11.8 gm/dL (13.0-17.5); Lymphocytes % (A) 34 %; MCH 28.8 pg (25.0-35.0); MCHC 32.8 g/dL (31.0-37.0); MCV 87.8 fL (80.0-100.0); Mean Platelet Volume 8.4; Monocytes # (A) 0.4 k/uL (0-1.0); Monocytes % (A) 6 %; Neutrophils # (A) 3.2 k/uL (1.3-7.7); Neutrophils % (A) 53 %; Platelet Count 112 k/uL (150-450); RBC 4.09 m/uL (4.30-5.90); RDW 13.5 % (11.5-15.5); WBC 5.9 k/uL (3.8-10.6)
[2019-03-22 05:48] LABS: Albumin 3.7 g/dL (3.5-5.0); Calcium 8.5 mg/dL (8.4-10.2); Magnesium 2.2 mg/dL (1.6-2.3); Potassium 4.3 mmol/L (3.5-5.1); Total Bilirubin 0.3 mg/dL (0.2-1.3); Total Protein 6.9 g/dL (6.3-8.2)
== END 2019-03-22 07:10 | disposition other institution (70) ==
LOC: EC 03:29
DX: Z91.14 Patient's other noncompliance with medication regimen (principal); R42 Dizziness and giddiness; E11.9 Type 2 diabetes mellitus without complications; K21.9 Gastro-esophageal reflux disease without esophagitis; I10 Essential (primary) hypertension; G40.909 Epilepsy, unspecified, not intractable, without status epilepticus; Z86.73 Personal history of transient ischemic attack (TIA), and cerebral infarction without residual deficits; Z87.891 Personal history of nicotine dependence; Z79.4 Long term (current) use of insulin; Z79.899 Other long term (current) drug therapy
CPT/HCPCS: 36415; 80053; 83735; 85025; 96360; 99284

== ENCOUNTER 2019-04-17 09:39 | Day surgery (SDC) | payer OTHER ==
[2019-04-07 11:20] VITALS: BMI 38.0
--- NOTE | 2019-04-17 07:41 | P.GSHP ---
History of Present Illness H&P Date: 04/17/19 CHIEF COMPLAINT: Ventral hernia HISTORY OF PRESENT ILLNESS: The patient is a 63-year-old male who presents with a history of swelling and pain along the epigastrium of the abdomen from a hernia. Now he presents for surgical intervention. PAST MEDICAL HISTORY: Please see list. PAST SURGICAL HISTORY: Please see list. MEDICATIONS: Please see list. ALLERGIES: Please see list. SOCIAL HISTORY: Please see list. FAMILY HISTORY: No reports of Crohn disease or ulcerative colitis. REVIEW OF ORGAN SYSTEMS: CONSTITUTIONAL: No reports of fevers or chills. No reports of weight loss despite prior attempts. GI: Denies any blood in stools or constipation. PHYSICAL EXAM: VITAL SIGNS: Stable GENERAL: Well-developed pleasant male in no acute distress. HEENT: No scleral icterus. Extraocular movements grossly intact. Moist buccal mucosa. NECK: Supple without lymphadenopathy. CHEST: Unlabored respirations. Equal bilateral excursions. CARDIOVASCULAR: Regular rate and rhythm. Distal 2+ pulses. ABDOMEN: Soft, nondistended. Palpable defect of the abdomen along epigastrium. No peritoneal signs. MUSCULOSKELETAL: No clubbing, cyanosis, or edema. ASSESSMENT: 1. Ventral hernia PLAN: 1. Recommend proceeding with robotic ventral hernia repair with mesh. 2. Benefits and risks of surgical intervention was discussed including possibility of open technique. 3. DVT prophylaxis. 4. Antibiotic prophylaxis. Past Medical History Past Medical History: Blood Disorder, CVA/TIA, Diabetes Mellitus, GERD/Reflux, Hyperlipidemia, Hypertension, Renal Disease, Seizure Disorder Additional Past Medical History / Comment(s): CVA 2017. PAIN, NT IN RT HAND. LAST SEIZURE, UNKNOWN. OCC EDEMA FEET/LOWER LEGS, WEARS SUPPORT SOCKS. GALLSTONES. iron deficiency anemia. History of Any Multi-Drug Resistant Organisms: None Reported Past Surgical History: Orthopedic Surgery Additional Past Surgical History / Comment(s): HX SURGERY KRISTIN FEET/ANKLES D/T INJURY. Past Anesthesia/Blood Transfusion Reactions: No Reported Reaction Additional Past Anesthesia/Blood Transfusion Reaction / Comment(s): NO HX BLOOD TRANSFUSION Smoking Status: Former smoker Past Alcohol Use History: Occasional - Past Family History Sister(s) Family Medical History: Cancer Mother Family Medical History: Cancer Medications and Allergies Home Medications Medication Instructions Recorded Confirmed Type Labetalol HCl 200 mg PO Q8H 06/27/17 04/07/19 History NIFEdipine [NIFEdipine ER] 90 mg PO QAM 06/27/17 04/07/19 History Omeprazole [PriLOSEC] 40 mg PO QAM 06/27/17 04/07/19 History Lisinopril 40 mg PO QAM 07/14/18 04/07/19 History Loratadine [Claritin] 10 mg PO DAILY PRN 07/14/18 04/03/19 History Gabapentin [Neurontin] 400 mg PO TID 11/12/18 04/07/19 History Insulin Glargine,Hum.rec.anlog 10 unit SQ QAM 11/13/18 04/07/19 History [Basaglar Kwikpen U-100] Ergocalciferol (Vitamin D2) 50,000 unit PO FR 04/03/19 04/07/19 History [Vitamin D2] Ferrous Sulfate [Feosol] 325 mg PO DAILY 04/03/19 04/07/19 History Lacosamide [Vimpat] 200 mg PO BID 04/07/19 04/07/19 History Allergies Allergy/AdvReac Type Severity Reaction Status Date / Time No Known Allergies Allergy Verified 04/07/19 11:01
[~2019-04-17 09:39] MED LIST changes: -INDOCYANINE GREEN 25 MG VIAL IV ONE; -MIDAZOLAM (PF) 2 MG/2 ML VIAL IV PRN; +MIDAZOLAM 2 MG/2 ML VIAL IV PRN; +ONDANSETRON 4 MG/2 ML VIAL IVP ONE; +ONDANSETRON 4 MG/2 ML VIAL IVP PRN; +SCOPOLAMINE 1.5MG/72HR PATCH TRANSDERM ONE; -ceFAZolin IN SWFI 2 GM/20 ML SYRINGE IVP ONE; -fentaNYL (PF) 50 MCG/ML 2 ML AMP IV PRN
[2019-04-17 10:37] VITALS: RESP 16
[2019-04-17 10:55] LABS: Glucose,Whole Blood 111 mg/dL (75-99)
[2019-04-17] MEDS ORDERED: PROPOFOL 10 MG/ML 20 ML VIAL IV ONE (12:06)
[2019-04-17] MEDS ORDERED: fentaNYL (PF) 50 MCG/ML 2 ML AMP ONE (12:06)
[2019-04-17] MEDS ORDERED: MIDAZOLAM 2 MG/2 ML VIAL ONE (12:06)
[2019-04-17] MEDS ORDERED: GLYCOPYRROLATE 0.2 MG/ML 2 ML VIAL ONE (12:06)
[2019-04-17] MEDS ORDERED: KETOROLAC 30 MG/ML 1 ML VIAL ONE (12:06)
[2019-04-17] MEDS ORDERED: LIDOCAINE 1% INJ 10MG/ML (20 ML MDV) ONE (12:06)
[2019-04-17] MEDS ORDERED: ROCURONIUM BROMIDE 10 MG/ML 10 ML VIAL IV ONE (12:06)
[2019-04-17] MEDS ORDERED: SUCCINYLCHOLINE CHLORIDE 100 MG/5 ML SYR IV ONE (12:06)
[2019-04-17] MEDS ORDERED: NEOSTIGMINE 1 MG/ML 10 ML VIAL ONE (12:06)
[2019-04-17] MEDS ORDERED: ePHEDrine SULFATE/0.9% NACL/PF 50 MG/5 ML SYRINGE IV ONE (12:06)
[2019-04-17] MEDS ORDERED: BUPIVACAIN-EPI 0.25%-1:200,000 30 ML VIAL SQ ONE (12:10)
[2019-04-17] MEDS ORDERED: LACTATED RINGERS 1,000 ML IV ONE ×2 (13:50→18:24)
--- NOTE | 2019-04-17 14:20 | P.OP ---
Date of Procedure: 04/17/19 Description of Procedure: Date of Procedure: 04/17/19 SURGEON: LISA HAYES MD PREOPERATIVE DIAGNOSES: 1. Initial incarcerated ventral hernia 2. Morbid obesity due to excess calories, BMI 40.4 3. Diabetes type II, insulin-dependent with diabetic nephropathy 4. Hypertensive heart disease with hypertensive nephropathy 5. History of transient ischemic attack 6. Persistent lower extremity edema 7. Gastroesophageal reflux disease 8. Hyperlipidemia POSTOPERATIVE DIAGNOSES: 1. Initial incarcerated ventral hernia, 6 cm 2. Morbid obesity due to excess calories, BMI 40.4 3. Diabetes type II, insulin-dependent with diabetic nephropathy 4. Hypertensive heart disease with hypertensive nephropathy 5. History of transient ischemic attack 6. Persistent lower extremity edema 7. Gastroesophageal reflux disease 8. Hyperlipidemia 9. Severe intra-abdominal peritoneal adhesions greater omentum to abdominal wall OPERATION: 1. Robotic-assisted da Gemini Xilaparoscopic lysis of adhesions over 1 hour 2. Robotic-assisted da Gemini Xi laparoscopic repair of initial incarcerated ventral hernia epigastrium including umbilical hernia repair 6-cm with mesh, ventralight ST mesh 11.4 cm Implants: Ventral light ST mesh 11.4 cm circular Anesthesia: GETA, local Estimated Blood Loss (ml): 5 Disposition: same day SPECIMENS: None COMPLICATIONS: None. Operative Findings: 1. Incarcerated initial ventral hernia involving over 80% of greater omentum at the epigastrium 2. Severe peritoneal adhesions anterior abdominal wall lysed using vessel sealer 3. 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 Lysis of adhesions 1 hour performed 5. Additional port site along right upper quadrant used for instrumentation and placement of mesh INDICATIONS: The patient is a 63-year-old male who presents with initial incarcerated ventral hernia of the epigastrium and umbilicus. Surgical intervention with laparoscopic versus robotic and open techniques were reviewed. Placement of mesh was also reviewed. Benefits and risks were thoroughly described. Informed consent was obtained. DESCRIPTION OF PROCEDURE: The patient was brought into the operating room and laid in supine position. After general induction, the abdomen had been prepped and draped in standard sterile fashion. Ioban draping was also placed. Prior to incision, a timeout protocol was confirmed with surgical team regarding the patient's name including procedures to be performed. The robot was primed prior to the procedure. A field block using local anesthetic was placed along hernia site including the proposed port sites. Initial incision was made with an #11 blade along the left upper quadrant. A 0 degree 5 mm laparoscopic trocar entry was performed and insufflated. An 8 mm port was placed along the left lateral abdominal wall under direct localization. The 5-mm port was exchanged for an 8 mm robotic port. Placements of the ports were 15 cm from the target anatomy and 10 cm apart. The [employer] Xi robot was previously primed, prepped and draped then docked along the right side of the patient. I then sat at the robot Da Gemini Xi console where working arms of the robot including Bovie cautery connected to robotic scissors, vessel sealer, needle jitney driver, and graspers placed by the assistant professor of geography. Severe peritoneal adhesions was found throughout the abdomen. Extensive lysis of adhesions over 1 hr was performed using vessel sealer to remove attachment of the greater omentum to the anterior abdominal wall. A large incarcerated hernia of the epigastrium was reduced and released after incising the fascia. Fascial defect of 6 cm of the epigastrium and 2-cm umbilicus was identified after cleaning the peritoneal fat of the abdominal wall and reducing incarcerated omentum. A 12 mm port was placed along the right upper quadrant for placement of the mesh and for sutures. The incarcerated contents was reduced as the peritoneal fat was cleaned from the abdominal wall. Next, hemostasis was checked with cautery. The hernia defect was oversewn using #1 Stratafix with fascial imbrication x 3. Next, ventralight ST mesh 11.4 cm was placed with the rough side towards the a bdominal wall. 2-0 VLOC 9 inch sutures were used to fixate the mesh. A final endoscopic imaging was obtained. All instruments and pneumoperitoneum were evacuated from the abdominal cavity. The da Gem[employer] Xi robot was undocked from the patient. I re-scrubbed into the case for closure of incisions. The fascia of the 12-mm port was probed and less than 8-mm in size. The incisions were reapproximated using 4-0 Monocryl in an interrupted subcuticular fashion. Liquid glue was applied to the skin after cleansing the skin with normal saline and dilute hydrogen peroxide. An abdominal binder was placed. At the end of the procedure, needle, sponge, and instrument count had been verified correct by cardiovascular surgical tech. The patient was taken to the postanesthesia care unit in stable condition. Plan - Discharge Summary Discharge Rx Participant: No New Discharge Prescriptions: New Acetaminophen Tab [Tylenol Tab] 500 mg PO Q6H PRN #30 tablet PRN Reason: Pain Tamsulosin [Flomax] 0.4 mg PO DAILY #5 cap.er.24h No Action Omeprazole [PriLOSEC] 40 mg PO QAM NIFEdipine [NIFEdipine ER] 90 mg PO QAM Labetalol HCl 200 mg PO Q8H Lisinopril 40 mg PO QAM Loratadine [Claritin] 10 mg PO DAILY PRN PRN Reason: allergies Gabapentin [Neurontin] 400 mg PO TID Insulin Glargine,Hum.rec.anlog [Basaglar Kwikpen U-100] 10 unit SQ QAM Ferrous Sulfate [Feosol] 325 mg PO DAILY Ergocalciferol (Vitamin D2) [Vitamin D2] 50,000 unit PO FR Lacosamide [Vimpat] 200 mg PO BID Discharge Medication List Labetalol HCl 200 mg PO Q8H 06/27/17 [History] NIFEdipine [NIFEdipine ER] 90 mg PO QAM 06/27/17 [History] Omeprazole [PriLOSEC] 40 mg PO QAM 06/27/17 [History] Lisinopril 40 mg PO QAM 07/14/18 [History] Loratadine [Claritin] 10 mg PO DAILY PRN 07/14/18 [History] Gabapentin [Neurontin] 400 mg PO TID 11/12/18 [History] Insulin Glargine,Hum.rec.anlog [Basaglar Kwikpen U-100] 10 unit SQ QAM 11/13/18 [History] Ergocalciferol (Vitamin D2) [Vitamin D2] 50,000 unit PO FR 04/03/19 [History] Ferrous Sulfate [Feosol] 325 mg PO DAILY 04/03/19 [History] Lacosamide [Vimpat] 200 mg PO BID 04/07/19 [History] Acetaminophen Tab [Tylenol Tab] 500 mg PO Q6H PRN #30 tablet 04/17/19 [Rx] Tamsulosin [Flomax] 0.4 mg PO DAILY #5 cap.er.24h 04/17/19 [Rx] Follow up Appointment(s)/Referral(s): Lisa Hayes MD [STAFF PHYSICIAN] - 04/21/19 Patient Instructions/Handouts: *Surgery [facility] - (Anesthesia) Discharge Instructions Outpatient Surgery, Abdominal Binder (DC), Ventral Hernia Repair (GEN) Activity/Diet/Wound Care/Special Instructions: No lifting over 4 pounds in 4 weeks until 05/17/2019. May shower. No bath tub soaks. Wear abdominal binder at all times except for showering. Use cold packs for pain along incisions 15 minutes on and 15 minutes off. Discharge Disposition: HOME SELF-CARE
[2019-04-17] MEDS ORDERED: DEXAMETHASONE SOD PHOSPHATE 10 MG/ML 1 ML VIAL IV PRN (14:21)
[2019-04-17] MEDS ORDERED: TAMSULOSIN 0.4 MG CAP.ER.24H PO STA (14:22)
[2019-04-17 14:44] VITALS: TEMP 97.4
[2019-04-17 15:02] LABS: Glucose,Whole Blood 169 mg/dL (75-99)
[2019-04-17] MEDS: HYDROmorphone 0.5 MG/0.5 ML SYRINGE IVP PRN ×2 (15:05→15:20)
[2019-04-17] MEDS ORDERED: MEPERIDINE 50 MG/ML SYRINGE IVP ONE ×2 (16:55→17:10)
[2019-04-17 16:59] VITALS: PULSE 69
[2019-04-17 17:55] VITALS: BP 133/74
== END 2019-04-17 19:08 | disposition home or self-care (01) ==
LOC: OR 09:39
PROVIDERS: ATTEND Surgery Plastic and Reconstructive Surgery
DX: K43.6 Other and unspecified ventral hernia with obstruction, without gangrene (principal); E11.21 Type 2 diabetes mellitus with diabetic nephropathy; E66.01 Morbid (severe) obesity due to excess calories; E78.5 Hyperlipidemia, unspecified; I11.9 Hypertensive heart disease without heart failure; K66.0 Peritoneal adhesions (postprocedural) (postinfection); K21.9 Gastro-esophageal reflux disease without esophagitis; Z68.41 Body mass index [BMI] 40.0-44.9, adult; Z79.4 Long term (current) use of insulin; Z86.73 Personal history of transient ischemic attack (TIA), and cerebral infarction without residual deficits; Z87.891 Personal history of nicotine dependence; Z79.899 Other long term (current) drug therapy
CPT/HCPCS: 94002; 49653; 49329; C1781; J2250; J1644; J1100; J2710; J2175; J0690; J2405; J2001; J3010; J1885; J0330; J2704; J1170

== ENCOUNTER 2019-05-03 05:14 | Emergency (ER) | payer OTHER ==
[2019-05-03 05:20] VITALS: RESP 18
[2019-05-03] MEDS ORDERED: SODIUM CHLORIDE 0.9% 1,000 ML IV STA (05:36)
--- NOTE | 2019-05-03 05:43 | ED ---
Abdominal Pain HPI - General Chief Complaint: Abdominal Pain Stated Complaint: Abdominal Pain Time Seen by Provider: 05/03/19 05:33 Source: patient, RN notes reviewed Mode of arrival: wheelchair Limitations: no limitations - History of Present Illness Initial Comments: This a 63-year-old male presents emergency Department chief complaint of abdominal discomfort. Patient states that he had surgery 15 days ago for hernia repair by Dr. Hayes. Patient states that recently has been constipated he is passing gas but no stool. Patient states that he feels of this hernia has returned. Patient has a lump in his mid abdomen that is minimally tender. Patient denies any nausea vomiting no fevers or chills no dysuria no hematuria. Patient did not contact his physician regarding the symptoms at this time. - Related Data Home Medications Medication Instructions Recorded Confirmed Labetalol HCl 200 mg PO Q8H 06/27/17 04/17/19 NIFEdipine [NIFEdipine ER] 90 mg PO QAM 06/27/17 04/17/19 Omeprazole [PriLOSEC] 40 mg PO QAM 06/27/17 04/17/19 Lisinopril 40 mg PO QAM 07/14/18 04/17/19 Loratadine [Claritin] 10 mg PO DAILY PRN 07/14/18 04/17/19 Gabapentin [Neurontin] 400 mg PO TID 11/12/18 04/17/19 Insulin Glargine,Hum.rec.anlog 10 unit SQ QAM 11/13/18 04/17/19 [Basaglar Kwikpen U-100] Ergocalciferol (Vitamin D2) 50,000 unit PO FR 04/03/19 04/17/19 [Vitamin D2] Ferrous Sulfate [Feosol] 325 mg PO DAILY 04/03/19 04/17/19 Lacosamide [Vimpat] 200 mg PO BID 04/07/19 04/17/19 Previous Rx's Medication Instructions Recorded Acetaminophen Tab [Tylenol Tab] 500 mg PO Q6H PRN #30 tablet 04/17/19 Tamsulosin [Flomax] 0.4 mg PO DAILY #5 cap.er.24h 04/17/19 Allergies Allergy/AdvReac Type Severity Reaction Status Date / Time No Known Allergies Allergy Verified 04/17/19 10:58 Review of Systems ROS Statement: Those systems with pertinent positive or pertinent negative responses have been documented in the HPI. ROS Other: All systems not noted in ROS Statement are negative. Past Medical History Past Medical History: Blood Disorder, CVA/TIA, Diabetes Mellitus, GERD/Reflux, Hyperlipidemia, Hypertension, Renal Disease, Seizure Disorder Additional Past Medical History / Comment(s): CVA 2017. PAIN, NT IN RT HAND. LAST SEIZURE, UNKNOWN. OCC EDEMA FEET/LOWER LEGS, WEARS SUPPORT SOCKS. GALLSTONES. iron deficiency anemia. History of Any Multi-Drug Resistant Organisms: None Reported Past Surgical History: Orthopedic Surgery Additional Past Surgical History / Comment(s): HX SURGERY KRISTIN FEET/ANKLES D/T INJURY. Past Anesthesia/Blood Transfusion Reactions: No Reported Reaction Past Psychological History: No Psychological Hx Reported Smoking Status: Former smoker Past Alcohol Use History: Occasional - Past Family History Sister(s) Family Medical History: Cancer Mother Family Medical History: Cancer General Exam Limitations: no limitations General appearance: alert, in no apparent distress Head exam: Present: atraumatic, normocephalic, normal inspection Eye exam: Present: normal appearance, PERRL, EOMI. Absent: scleral icterus, conjunctival injection, periorbital swelling Neck exam: Present: normal inspection, full ROM. Absent: tenderness, meningismus, lymphadenopathy Respiratory exam: Present: normal lung sounds bilaterally. Absent: respiratory distress, wheezes, rales, rhonchi, stridor Cardiovascular Exam: Present: regular rate, normal rhythm, normal heart sounds. Absent: systolic murmur, diastolic murmur, rubs, gallop, clicks GI/Abdominal exam: Present: soft, tenderness (Mild diffuse), normal bowel sounds, other (There is a mass in the mid abdomen and the ventral region that feels consistent with a hernia). Absent: distended, guarding, rebound, rigid Neurological exam: Present: alert Skin exam: Present: warm, dry, intact, normal color. Absent: rash Course Vital Signs 05/03/19 05:15 Temperature 97.3 F L Pulse Rate 68 Respiratory 18 Rate Blood Pressure 104/74 O2 Sat by Pulse 100 Oximetry Medical Decision Making - Medical Decision Making 63-year-old male present emergency from for abdominal discomfort, constipation. Patient does have a small area in his ventral region concerning for recurrent hernia. Patient x-ray shows moderate stool retention. Patient is advised take stool softener laxative. Patient will follow-up with Dr. Russ on Saturday and return for any worsening symptoms. - Lab Data Result diagrams: 05/03/19 06:44 05/03/19 06:44 Lab Results 05/03/19 05/03/19 05/03/19 Range/Units 06:44 06:44 06:44 WBC 7.7 (3.8-10.6) k/uL RBC 4.23 L (4.30-5.90) m/uL Hgb 12.0 L (13.0-17.5) gm/dL Hct 36.7 L (39.0-53.0) % MCV 86.8 (80.0-100.0) fL MCH 28.3 (25.0-35.0) pg MCHC 32.6 (31.0-37.0) g/dL RDW 13.7 (11.5-15.5) % Plt Count 153 (150-450) k/uL Neutrophils % 67 % Lymphocytes % 21 % Monocytes % 5 % Eosinophils % 5 % Basophils % 1 % Neutrophils # 5.2 (1.3-7.7) k/uL Lymphocytes # 1.6 (1.0-4.8) k/uL Monocytes # 0.4 (0-1.0) k/uL Eosinophils # 0.4 (0-0.7) k/uL Basophils # 0.1 (0-0.2) k/uL Sodium 139 (137-145) mmol/L Potassium (3.5-5.1) mmol/L Chloride 109 H (98-107) mmol/L Carbon Dioxide 23 (22-30) mmol/L Anion Gap 7 mmol/L BUN 22 H (9-20) mg/dL Creatinine 1.34 H (0.66-1.25) mg/dL Est GFR (CKD-EPI)AfAm 65 (>60 ml/min/1.73 sqM) Est GFR (CKD-EPI)NonAf 56 (>60 ml/min/1.73 sqM) Glucose 107 H (74-99) mg/dL Plasma Lactic Acid Timur 0.9 (0.7-2.0) mmol/L Calcium 8.8 (8.4-10.2) mg/dL Total Bilirubin 0.6 (0.2-1.3) mg/dL AST 30 (17-59) U/L ALT 25 (21-72) U/L Alkaline Phosphatase 62 (38-126) U/L Total Protein 7.5 (6.3-8.2) g/dL Albumin 3.9 (3.5-5.0) g/dL Amylase 92 (30-110) U/L Lipase 66 (23-300) U/L Disposition Clinical Impression: Constipation, Ventral hernia Disposition: HOME SELF-CARE Condition: Stable Instructions (If sedation given, give patient instructions): Constipation (ED) Additional Instructions: Take [id number] stool softener stool laxative.Please return to the Emergency Department if symptoms worsen or any other concerns. Is patient prescribed a controlled substance at d/c from ED?: No Referrals: Raúl Abbott DO [Primary Care Provider] - 1-2 days Lisa Hayes MD [STAFF PHYSICIAN] - 1-2 days Time of Disposition: 07:37
--- NOTE | 2019-05-03 06:18 | XR ---
EXAM: XR Abdomen, 2 Views CLINICAL HISTORY: ITS.REASON XR Reason: abdominal pain TECHNIQUE: Frontal view of the abdomen/pelvis with upright view of the abdomen. COMPARISON: 02/25/19 FINDINGS: Intraperitoneal space: No free air. Gastrointestinal tract: Few scattered air-fluid levels in nondistended bowel loops. This may reflect ileus. Mild retained stool. Bones/joints: Mild degenerative changes in the lower lumbar spine. IMPRESSION: 1. Nonspecific bowel gas pattern. 2. Mild retained stool.
[2019-05-03 07:01] LABS: Basophils # (A) 0.1 k/uL (0-0.2); Basophils % (A) 1 %; Eosinophils # (A) 0.4 k/uL (0-0.7); Eosinophils % (A) 5 %; HCT 36.7 % (39.0-53.0); Lymphocytes # (A) 1.6 k/uL (1.0-4.8); Lymphocytes % (A) 21 %; MCH 28.3 pg (25.0-35.0); MCHC 32.6 g/dL (31.0-37.0); MCV 86.8 fL (80.0-100.0); Mean Platelet Volume 8.1; Monocytes # (A) 0.4 k/uL (0-1.0); Monocytes % (A) 5 %; Neutrophils # (A) 5.2 k/uL (1.3-7.7); Neutrophils % (A) 67 %; Platelet Count 153 k/uL (150-450); RBC 4.23 m/uL (4.30-5.90); RDW 13.7 % (11.5-15.5); WBC 7.7 k/uL (3.8-10.6)
[2019-05-03 07:13] LABS: Albumin 3.9 g/dL (3.5-5.0); Calcium 8.8 mg/dL (8.4-10.2); Total Bilirubin 0.6 mg/dL (0.2-1.3); Total Protein 7.5 g/dL (6.3-8.2)
[2019-05-03 07:54] LABS: Appearance,Urine Clear (Clear); Bilirubin,Urine Negative (Negative); Blood,Urine Negative (Negative); Color,Urine Yellow; Glucose,Urine (UA) Negative (Negative); Ketones,Urine Negative (Negative); Leukocyte Esterase,Urine Negative (Negative); Nitrite,Urine Negative (Negative); Protein,Urine Negative (Negative); Specific Gravity,Urine 1.013 (1.001-1.035); Urobilinogen,Urine <2.0 mg/dL (<2.0)
[2019-05-03 08:56] VITALS: BP 118/76; PULSE 70; TEMP 98
== END 2019-05-03 08:50 | disposition home or self-care (01) ==
LOC: EC 05:14
DX: K59.00 Constipation, unspecified (principal); K43.9 Ventral hernia without obstruction or gangrene; D50.9 Iron deficiency anemia, unspecified; E11.9 Type 2 diabetes mellitus without complications; K21.9 Gastro-esophageal reflux disease without esophagitis; I10 Essential (primary) hypertension; G40.909 Epilepsy, unspecified, not intractable, without status epilepticus; Z87.891 Personal history of nicotine dependence; Z79.4 Long term (current) use of insulin; Z79.899 Other long term (current) drug therapy; Z86.73 Personal history of transient ischemic attack (TIA), and cerebral infarction without residual deficits; Z98.890 Other specified postprocedural states
CPT/HCPCS: 36415; 74018; 80053; 81003; 82150; 83605; 83690; 85025; 96360; 99284

== ENCOUNTER → 2019-05-11 | Outpatient (CLI) | payer OTHER ==
--- NOTE | 2019-05-12 06:26 | CT ---
EXAMINATION TYPE: CT abdomen pelvis wo con DATE OF EXAM: 05/11/2019 COMPARISON: None HISTORY: 63-year-old male recently had surgery for hernia, gallbladder removal. Physician concerned f or diverticulitis. CT DLP: 1291 mGycm. Automated exposure control for dose reduction was used. TECHNIQUE: Contiguous axial scanning of the abdomen and pelvis without IV contrast. Coronal and sagit david reconstructions performed. FINDINGS: Heart upper limits of normal in size without pericardial effusion. Small hiatal hernia. Some strandy atelectasis lower lungs without pleural effusion. Noncontrast appearance of the liver, right adrenal gland, kidneys, spleen, and pancreas appear within normal limits. Some low density nodularity measuring 1.7 cm within the left adrenal gland suggests possible underlyi ng lipid rich adrenal adenoma. Gallbladder surgically absent. No dilated small bowel or free air. Normal appendix. Moderate stool burden. Diverticular change along the proximal sigmoid colon. No pericolonic inflammat ory change seen. Moderate circumferential bladder wall thickening. Some eccentric thickening along the right lateral b ladder. Prostate gland is enlarged at 5.4 cm wide. There may be underlying scrotal hydroceles. No abn ormal fluid collection otherwise seen in the pelvis or pelvic lymphadenopathy. Scattered numerous nonenlarged and borderline sized mesenteric lymph nodes measuring up to 7 mm. Postsurgical changes along the supraumbilical region to well-defined 6.1 x 4.4 cm fluid collection ce ntered in the subcutaneous adipose above the level of the umbilicus. There is some mild surrounding f at stranding and some internal fat density. Difficult to exclude tiny underlying defect in the abdomi nal wall. There is focal fluid just deep to the abdominal wall musculature at this level measuring 9.7 cm wide by 10.1 cm craniocaudal by 3.2 cm AP. This extends just below the level of the umbilicus. Some surro unding omental fat stranding at the level of the fluid. Small fatty umbilical hernia is demonstrated. Bones: Degenerative changes of the hips. Hypertrophic facet arthropathy mid to lower lumbar spine. Gr osmin 1 anterolisthesis at L4-L5. IMPRESSION: 1. 6.1 x 4.4 cm fluid collection centered in the anterior subcutaneous adipose just above the level of the umbilicus may correspond to the level of the patient's hernia surgery. Large postoperative ser maribel and abscess are differential considerations. 2. Additional focal fluid deep to the abdominal wall musculature at this level measures 10.1 x 9.7 x 3.2 cm and could represent postsurgical fluid. Further clinical correlation to exclude infective flu id. 3. Proximal sigmoid diverticulosis without evidence for acute diverticulitis. 4. Moderate circumferential bladder wall thickening could reflect chronic bladder wall hypertrophy o r cystitis. There is prostatomegaly at 5.4 cm wide. However, given slightly eccentric wall thickening along the right lateral bladder wall, correlate with urine cytology and direct visualization as cash cated to exclude a mucosal lesion.
== END | disposition home or self-care (01) ==
LOC: RADCTMAIN 14:16
PROVIDERS: ATTEND Surgery Plastic and Reconstructive Surgery
DX: K57.30 Diverticulosis of large intestine without perforation or abscess without bleeding (principal); N40.0 Benign prostatic hyperplasia without lower urinary tract symptoms; N32.89 Other specified disorders of bladder; R93.5 Abnormal findings on diagnostic imaging of other abdominal regions, including retroperitoneum
CPT/HCPCS: 74176

== ENCOUNTER 2019-06-06 02:06 | Emergency (ER) | payer OTHER ==
[2019-06-06 02:12] VITALS: BP 135/80; PULSE 72; RESP 20; TEMP 97.8
[2019-06-06] MEDS ORDERED: LACOSAMIDE 50 MG TABLET PO STA (02:28)
--- NOTE | 2019-06-06 03:10 | ED ---
General Adult HPI - General Chief complaint: Recheck/Abnormal Lab/Rx Stated complaint: Pain Time Seen by Provider: 06/06/19 02:20 Source: patient, RN notes reviewed, old records reviewed Mode of arrival: ambulatory Limitations: no limitations - History of Present Illness Initial comments: 63-year-old male patient past history significant for seizure disorder presents to ED with cheif complaint medication refill. Patient was he is out of his Vimpat. States that he contacted his doctor's office he says that the refill his prescription, however is not the pharmacy. Has not taken his Vimpat in 2 days. Denies any other complaints. Systemic: Pt denies fatigue, fever/chills, rash. Pt denies weakness, night sweats, weight loss. Neuro: Pt denies headache, visual disturbances, syncope or pre-syncope. HEENT: Pt denies ocular discharge or irritation, otalgia, rhinorrhea, pharyngitis or notable lymphadenopathy. Cardiopulmonary: Pt denies chest pain, SOB, heart palpitations, dyspnea on exertion. Abdominal/GI: Pt denies abdominal pain, n/v/d. : Pt denies dysuria, burning w/ urination, frequency/urgency. Denies new onset urinary or bowel incontinence. MSK: Pt denies myalgia, loss of strength or function in extremities. Neuro: Pt denies new onset weakness, paresthesias. - Related Data Home Medications Medication Instructions Recorded Confirmed Labetalol HCl 200 mg PO Q8H 06/27/17 05/03/19 NIFEdipine [NIFEdipine ER] 90 mg PO QAM 06/27/17 05/03/19 Omeprazole [PriLOSEC] 40 mg PO QAM 06/27/17 05/03/19 Lisinopril 40 mg PO QAM 07/14/18 05/03/19 Loratadine [Claritin] 10 mg PO DAILY PRN 07/14/18 05/03/19 Gabapentin [Neurontin] 400 mg PO TID 11/12/18 05/03/19 Insulin Glargine,Hum.rec.anlog 10 unit SQ QAM 11/13/18 05/03/19 [Basaglar Kwikpen U-100] Ergocalciferol (Vitamin D2) 50,000 unit PO FR 04/03/19 05/03/19 [Vitamin D2] Ferrous Sulfate [Feosol] 325 mg PO DAILY 04/03/19 05/03/19 Lacosamide [Vimpat] 200 mg PO BID 04/07/19 05/03/19 Previous Rx's Medication Instructions Recorded Acetaminophen Tab [Tylenol Tab] 500 mg PO Q6H PRN #30 tablet 04/17/19 Tamsulosin [Flomax] 0.4 mg PO DAILY #5 cap.er.24h 04/17/19 Lacosamide [Vimpat] 200 mg PO BID 3 Days #6 tab 06/06/19 Allergies Allergy/AdvReac Type Severity Reaction Status Date / Time No Known Allergies Allergy Verified 06/06/19 02:12 Review of Systems ROS Statement: Those systems with pertinent positive or pertinent negative responses have been documented in the HPI. ROS Other: All systems not noted in ROS Statement are negative. Past Medical History Past Medical History: Blood Disorder, CVA/TIA, Diabetes Mellitus, GERD/Reflux, Hyperlipidemia, Hypertension, Renal Disease, Seizure Disorder Additional Past Medical History / Comment(s): CVA 2017. PAIN, NT IN RT HAND. LAST SEIZURE, UNKNOWN. OCC EDEMA FEET/LOWER LEGS, WEARS SUPPORT SOCKS. GALLSTONES. iron deficiency anemia. History of Any Multi-Drug Resistant Organisms: None Reported Past Surgical History: Orthopedic Surgery Additional Past Surgical History / Comment(s): HX SURGERY KRISTIN FEET/ANKLES D/T INJURY. Past Anesthesia/Blood Transfusion Reactions: No Reported Reaction Past Psychological History: No Psychological Hx Reported Smoking Status: Former smoker Past Alcohol Use History: Occasional - Past Family History Sister(s) Family Medical History: Cancer Mother Family Medical History: Cancer General Exam - General Exam Comments Initial Comments: Constitutional: NAD, AOX3, Pt has pleasant affect. HEENT: NC/AT, trachea midline, neck supple, no lymphadenopathy. Posterior pharynx non erythematous, without exudates. External ears appear normal, without discharge. Mucous membranes moist. Eyes PERRLA, EOM intact. There is no scleral icterus. No pallor noted. Cardiopulmonary: RRR, no murmurs, rubs or gallops, no JVD noted. Lungs CTAB in anterior and posterior gabriel. No peripheral edema. Abdominal exam: Abdomen soft and non-distended. Abdomen non-tender to palpation in all 4 quadrants. Bowel sounds active in LLQ. No hepatosplenomegaly. No ecchymosis Neuro: CN II-XII intact. No nuchal rigidity. No raccon eyes, no moreno sign, no hemotympanum. No cervical spinal tenderness. MSK: No posterior calf tenderness bilaterally, homans sign negative bilaterally. Posterior tibialis and radial pulse +2 bilaterally. Sensation intact in upper and lower extremities. Full active ROM in upper and lower extremities, 5/5 stregnth. Limitations: no limitations Course Vital Signs 06/06/19 02:10 Temperature 97.8 F Pulse Rate 72 Respiratory 20 Rate Blood Pressure 135/80 O2 Sat by Pulse 96 Oximetry Medical Decision Making - Medical Decision Making 63 old male patient presents to the 49 complaint medication refill. Patient medications were refilled. Vital signs stable, afebrile. Physical exam demonstrate acute pathology. Patient discharged to follow up with primary care provider. Case discussed with Dr. Muñoz. Disposition Clinical Impression: Medication refill Disposition: HOME SELF-CARE Condition: Stable Instructions (If sedation given, give patient instructions): Medicine Refill (ED) Additional Instructions: Patient to adhere to previously discussed treatment plan and will take medication(s) as directed. Patient to follow up with PCP in 1-2 days. Patient to return to ED if symptoms do not improve. Follow-up with primary care provider tomorrow. Return to ER if condition worsens. Prescriptions: Lacosamide [Vimpat] 200 mg PO BID 3 Days #6 tab Is patient prescribed a controlled substance at d/c from ED?: No Referrals: Raúl Abbott DO [Primary Care Provider] - 1-2 days
== END 2019-06-06 03:16 | disposition home or self-care (01) ==
LOC: EC 02:06
DX: Z76.0 Encounter for issue of repeat prescription (principal); E11.9 Type 2 diabetes mellitus without complications; K21.9 Gastro-esophageal reflux disease without esophagitis; I10 Essential (primary) hypertension; G40.909 Epilepsy, unspecified, not intractable, without status epilepticus; Z79.4 Long term (current) use of insulin; Z79.899 Other long term (current) drug therapy; Z87.891 Personal history of nicotine dependence; Z86.73 Personal history of transient ischemic attack (TIA), and cerebral infarction without residual deficits
CPT/HCPCS: 99282

== ENCOUNTER 2019-06-24 00:07 | Emergency (ER) | payer OTHER ==
--- NOTE | 2019-06-24 00:40 | ED ---
Dizziness HPI - General Chief Complaint: Dizziness Stated Complaint: dizziness Time Seen by Provider: 06/24/19 00:23 Source: patient Mode of arrival: ambulatory Limitations: no limitations - History of Present Illness Initial Comments: This patient is a 63-year-old man with history of hypertension who presents to be evaluated for some symptoms that developed tonight, approximately an hour ago while he was watching television. The patient states that he started to hear a whooshing sound, he felt dizzy. He states that this sensation was like he would have a hard time walking, like he was at risk of falling. He was not having a spinning feeling. He did not feel like he was going to pass out. Patient did not have any chest pain, dyspnea, diaphoresis, nausea or vomiting. He checked his blood pressure and found that it was high, in the neighborhood of 200 systolic. Patient states that he drove himself here and the symptoms resolved. The patient did not notice worsening or relieving factors. MD Complaint: dizziness Onset/Timin -: hour(s) Timing: sudden onset Description: off-balance, difficulty walking History of Same: Yes History of Trauma: No Improves With: nothing Worsens With: nothing Associated Symptoms: denies other symptoms - Related Data Home Medications Medication Instructions Recorded Confirmed Labetalol HCl 200 mg PO Q8H 06/27/17 05/03/19 NIFEdipine [NIFEdipine ER] 90 mg PO QAM 06/27/17 05/03/19 Omeprazole [PriLOSEC] 40 mg PO QAM 06/27/17 05/03/19 Lisinopril 40 mg PO QAM 07/14/18 05/03/19 Loratadine [Claritin] 10 mg PO DAILY PRN 07/14/18 05/03/19 Gabapentin [Neurontin] 400 mg PO TID 11/12/18 05/03/19 Insulin Glargine,Hum.rec.anlog 10 unit SQ QAM 11/13/18 05/03/19 [Basaglar Kwikpen U-100] Ergocalciferol (Vitamin D2) 50,000 unit PO FR 04/03/19 05/03/19 [Vitamin D2] Ferrous Sulfate [Feosol] 325 mg PO DAILY 04/03/19 05/03/19 Lacosamide [Vimpat] 200 mg PO BID 04/07/19 05/03/19 Previous Rx's Medication Instructions Recorded Acetaminophen Tab [Tylenol Tab] 500 mg PO Q6H PRN #30 tablet 04/17/19 Tamsulosin [Flomax] 0.4 mg PO DAILY #5 cap.er.24h 04/17/19 Lacosamide [Vimpat] 200 mg PO BID 3 Days #6 tab 06/06/19 Allergies Allergy/AdvReac Type Severity Reaction Status Date / Time No Known Allergies Allergy Verified 06/06/19 02:12 Review of Systems ROS Statement: Those systems with pertinent positive or pertinent negative responses have been documented in the HPI. ROS Other: All systems not noted in ROS Statement are negative. Constitutional: Denies: fever, chills, weakness Eyes: Denies: vision change Respiratory: Denies: cough, dyspnea Cardiovascular: Denies: chest pain, palpitations, dyspnea on exertion, orthopnea, edema, syncope Gastrointestinal: Denies: abdominal pain, nausea, vomiting Musculoskeletal: Denies: back pain Skin: Denies: rash Neurological: Denies: headache, weakness, numbness, paresthesias Past Medical History Past Medical History: Blood Disorder, CVA/TIA, Diabetes Mellitus, GERD/Reflux, Hyperlipidemia, Hypertension, Renal Disease, Seizure Disorder Additional Past Medical History / Comment(s): CVA 2017. PAIN, NT IN RT HAND. LAST SEIZURE, UNKNOWN. OCC EDEMA FEET/LOWER LEGS, WEARS SUPPORT SOCKS. GALLSTONES. iron deficiency anemia. History of Any Multi-Drug Resistant Organisms: None Reported Past Surgical History: Orthopedic Surgery Additional Past Surgical History / Comment(s): HX SURGERY KRISTIN FEET/ANKLES D/T INJURY. Past Anesthesia/Blood Transfusion Reactions: No Reported Reaction Past Psychological History: No Psychological Hx Reported Smoking Status: Former smoker Past Alcohol Use History: Occasional Past Drug Use History: None Reported - Past Family History Sister(s) Family Medical History: Cancer Mother Family Medical History: Cancer General Exam Limitations: no limitations General appearance: alert, in no apparent distress Head exam: Present: atraumatic, normocephalic Eye exam: Present: normal appearance, PERRL, EOMI. Absent: scleral icterus, conjunctival injection, nystagmus ENT exam: Present: normal oropharynx Neck exam: Present: normal inspection, full ROM Respiratory exam: Present: normal lung sounds bilaterally. Absent: respiratory distress, wheezes, rales, rhonchi, stridor Cardiovascular Exam: Present: regular rate, normal rhythm, normal heart sounds. Absent: systolic murmur, diastolic murmur, rubs, gallop GI/Abdominal exam: Present: soft. Absent: tenderness, guarding, rebound, mass, pulsatile mass Extremities exam: Present: normal inspection, normal capillary refill. Absent: pedal edema, calf tenderness Back exam: Present: normal inspection. Absent: CVA tenderness (R), CVA tenderness (L) Neurological exam: Present: alert, oriented X3, CN II-XII intact. Absent: motor sensory deficit Skin exam: Present: warm, dry, intact, normal color. Absent: rash Course Vital Signs 06/24/19 06/24/19 00:11 01:33 Temperature 97.4 F L Pulse Rate 90 75 Respiratory 20 18 Rate Blood Pressure 142/87 135/88 O2 Sat by Pulse 99 98 Oximetry EKG Findings - EKG Comments: EKG Findings:: Possible old lateral infarct. - EKG Results: EKG: interpreted by ERMD, sinus rhythm (Rate 82 bpm), normal axis, normal ST/T - Blocks, [place], Hypertrophy, ST Abn: AV and intraventricular conduction: 1 AV block (AZ interval is 212 ms, consistent with the first-degree AV block.) Medical Decision Making - Lab Data Result diagrams: 06/24/19 00:34 06/24/19 00:34 Lab Results 06/24/19 06/24/19 06/24/19 Range/Units 00:34 00:34 00:34 WBC 6.0 (3.8-10.6) k/uL RBC 4.11 L (4.30-5.90) m/uL Hgb 12.1 L (13.0-17.5) gm/dL Hct 36.1 L (39.0-53.0) % MCV 88.0 (80.0-100.0) fL MCH 29.5 (25.0-35.0) pg MCHC 33.5 (31.0-37.0) g/dL RDW 13.4 (11.5-15.5) % Plt Count 129 L (150-450) k/uL Neutrophils % 48 % Lymphocytes % 38 % Monocytes % 6 % Eosinophils % 4 % Basophils % 1 % Neutrophils # 2.9 (1.3-7.7) k/uL Lymphocytes # 2.3 (1.0-4.8) k/uL Monocytes # 0.4 (0-1.0) k/uL Eosinophils # 0.3 (0-0.7) k/uL Basophils # 0.1 (0-0.2) k/uL Sodium 141 (137-145) mmol/L Potassium 4.8 (3.5-5.1) mmol/L Chloride 108 H (98-107) mmol/L Carbon Dioxide 24 (22-30) mmol/L Anion Gap 9 mmol/L BUN 23 H (9-20) mg/dL Creatinine 1.16 (0.66-1.25) mg/dL Est GFR (CKD-EPI)AfAm 77 (>60 ml/min/1.73 sqM) Est GFR (CKD-EPI)NonAf 67 (>60 ml/min/1.73 sqM) Glucose 113 H (74-99) mg/dL Calcium 9.1 (8.4-10.2) mg/dL Troponin I <0.012 (0.000-0.034) ng/mL Urine Color Urine Appearance (Clear) Urine pH (5.0-8.0) Ur Specific [place] (1.001-1.035) Urine Protein (Negative) Urine Glucose (UA) (Negative) Urine Ketones (Negative) Urine Blood (Negative) Urine Nitrite (Negative) Urine Bilirubin (Negative) Urine Urobilinogen (<2.0) mg/dL Ur Leukocyte Esterase (Negative) 06/24/19 Range/Units 01:30 WBC (3.8-10.6) k/uL RBC (4.30-5.90) m/uL Hgb (13.0-17.5) gm/dL Hct (39.0-53.0) % MCV (80.0-100.0) fL MCH (25.0-35.0) pg MCHC (31.0-37.0) g/dL RDW (11.5-15.5) % Plt Count (150-450) k/uL Neutrophils % % Lymphocytes % % Monocytes % % Eosinophils % % Basophils % % Neutrophils # (1.3-7.7) k/uL Lymphocytes # (1.0-4.8) k/uL Monocytes # (0-1.0) k/uL Eosinophils # (0-0.7) k/uL Basophils # (0-0.2) k/uL Sodium (137-145) mmol/L Potassium (3.5-5.1) mmol/L Chloride (98-107) mmol/L Carbon Dioxide (22-30) mmol/L Anion Gap mmol/L BUN (9-20) mg/dL Creatinine (0.66-1.25) mg/dL Est GFR (CKD-EPI)AfAm (>60 ml/min/1.73 sqM) Est GFR (CKD-EPI)NonAf (>60 ml/min/1.73 sqM) Glucose (74-99) mg/dL Calcium (8.4-10.2) mg/dL Troponin I (0.000-0.034) ng/mL Urine Color Light Yellow Urine Appearance Clear (Clear) Urine pH 7.0 (5.0-8.0) Ur Specific [place] 1.011 (1.001-1.035) Urine Protein Negative (Negative) Urine Glucose (UA) Negative (Negative) Urine Ketones Negative (Negative) Urine Blood Negative (Negative) Urine Nitrite Negative (Negative) Urine Bilirubin Negative (Negative) Urine Urobilinogen <2.0 (<2.0) mg/dL Ur Leukocyte Esterase Negative (Negative) Disposition Clinical Impression: Hypertension Disposition: HOME SELF-CARE Condition: Good Instructions (If sedation given, give patient instructions): Hypertension (ED) Is patient prescribed a controlled substance at d/c from ED?: No Referrals: Raúl Abbott DO [Primary Care Provider] - 1-2 days
--- NOTE | 2019-06-24 01:01 | XR ---
EXAMINATION TYPE: XR chest 1V portable DATE OF EXAM: 06/24/2019 COMPARISON: 02/25/2019 HISTORY: Hypertension TECHNIQUE: Single frontal view of the chest is obtained. FINDINGS: Heart is normal. Lungs are clear of consolidation. There are no hilar masses. There are ch est leads. Costophrenic angles are clear. IMPRESSION: No active cardiopulmonary disease. No significant change.
[2019-06-24 01:06] LABS: Basophils # (A) 0.1 k/uL (0-0.2); Basophils % (A) 1 %; Eosinophils # (A) 0.3 k/uL (0-0.7); Eosinophils % (A) 4 %; HCT 36.1 % (39.0-53.0); HGB 12.1 gm/dL (13.0-17.5); Lymphocytes # (A) 2.3 k/uL (1.0-4.8); Lymphocytes % (A) 38 %; MCH 29.5 pg (25.0-35.0); MCHC 33.5 g/dL (31.0-37.0); Mean Platelet Volume 8.5; Monocytes # (A) 0.4 k/uL (0-1.0); Monocytes % (A) 6 %; Neutrophils # (A) 2.9 k/uL (1.3-7.7); Neutrophils % (A) 48 %; Platelet Count 129 k/uL (150-450); RBC 4.11 m/uL (4.30-5.90); RDW 13.4 % (11.5-15.5)
[2019-06-24 01:34] VITALS: RESP 18
[2019-06-24 01:42] LABS: Appearance,Urine Clear (Clear); Bilirubin,Urine Negative (Negative); Blood,Urine Negative (Negative); Color,Urine Light Yellow; Glucose,Urine (UA) Negative (Negative); Ketones,Urine Negative (Negative); Leukocyte Esterase,Urine Negative (Negative); Nitrite,Urine Negative (Negative); Protein,Urine Negative (Negative); Specific Gravity,Urine 1.011 (1.001-1.035); Urobilinogen,Urine <2.0 mg/dL (<2.0)
[2019-06-24 02:23] LABS: Calcium 9.1 mg/dL (8.4-10.2); Potassium 4.8 mmol/L (3.5-5.1)
[2019-06-24 03:25] VITALS: BP 127/72; PULSE 76; TEMP 98.2
== END 2019-06-24 03:25 | disposition home or self-care (01) ==
LOC: EC 00:07
DX: I10 Essential (primary) hypertension (principal); R26.2 Difficulty in walking, not elsewhere classified; R42 Dizziness and giddiness; D50.9 Iron deficiency anemia, unspecified; E11.9 Type 2 diabetes mellitus without complications; K21.9 Gastro-esophageal reflux disease without esophagitis; G40.909 Epilepsy, unspecified, not intractable, without status epilepticus; Z87.891 Personal history of nicotine dependence; Z79.4 Long term (current) use of insulin; Z79.899 Other long term (current) drug therapy; Z98.890 Other specified postprocedural states
CPT/HCPCS: 36415; 71045; 80048; 81003; 84484; 85025; 93005; 99284

== ENCOUNTER 2019-07-23 11:50 | Emergency (ER) | payer OTHER ==
[2019-07-23] MEDS ORDERED: MECLIZINE 12.5 MG TAB PO STA (12:23)
[2019-07-23] MEDS ORDERED: SODIUM CHLORIDE 0.9% 1,000 ML IV STA (12:23)
[2019-07-23 12:44] LABS: Basophils % (A) 1 %; Eosinophils # (A) 0.2 k/uL (0-0.7); Eosinophils % (A) 4 %; HCT 38.3 % (39.0-53.0); HGB 12.7 gm/dL (13.0-17.5); Lymphocytes # (A) 1.4 k/uL (1.0-4.8); Lymphocytes % (A) 28 %; MCH 29.3 pg (25.0-35.0); MCHC 33.1 g/dL (31.0-37.0); MCV 88.6 fL (80.0-100.0); Mean Platelet Volume 9.3; Monocytes # (A) 0.3 k/uL (0-1.0); Monocytes % (A) 7 %; Neutrophils % (A) 58 %; Platelet Count 104 k/uL (150-450); RBC 4.32 m/uL (4.30-5.90); RDW 13.1 % (11.5-15.5); WBC 5.1 k/uL (3.8-10.6)
[2019-07-23 12:51] LABS: Albumin 4.2 g/dL (3.5-5.0); Calcium 9.3 mg/dL (8.4-10.2); INR 0.9 (<1.2); Potassium 4.5 mmol/L (3.5-5.1); Total Bilirubin 0.4 mg/dL (0.2-1.3); Total Protein 7.6 g/dL (6.3-8.2)
--- NOTE | 2019-07-23 13:03 | XR ---
EXAMINATION TYPE: XR chest 2V DATE OF EXAM: 07/23/2019 COMPARISON: 06/24/2019 TECHNIQUE: PA and lateral views submitted. HISTORY: Syncope FINDINGS: The lungs are clear and there is no pneumothorax, pleural effusion, or focal pneumonia. Coarsened i nterstitium. Limited inspiration. Arthropathy of the shoulders. Hypertrophic and degenerative change of the spine. IMPRESSION: 1. Coarsened interstitium can be seen with chronic interstitial lung disease, bronchitis or interstit ial pneumonitis. Correlate clinically to exclude early venous congestion..
--- NOTE | 2019-07-23 13:15 | ED ---
General Adult HPI - General Chief complaint: Dizziness Stated complaint: High BP Time Seen by Provider: 07/23/19 12:04 Source: patient, RN notes reviewed, old records reviewed Mode of arrival: ambulatory Limitations: no limitations - History of Present Illness Initial comments: 63-year-old male history of hypertension presenting for evaluation of elevated blood pressure. patient reports mild dizziness and does report associated mild headache. He also reports nausea, no vomiting. Denies any chest pain or abdominal pain. He has nausea without abdominal pain. No vomiting. No fever or chills. No preceding symptoms. Symptoms began this morning upon awakening around 7:30 AM. He states he has had some nasal congestion and URI symptoms as well. Denies focal numbness or weakness. Denies vision changes.previous history of hypertension as well as CVA - Related Data Home Medications Medication Instructions Recorded Confirmed Labetalol HCl 200 mg PO Q8H 06/27/17 07/23/19 NIFEdipine [NIFEdipine ER] 90 mg PO QAM 06/27/17 07/23/19 Lisinopril 40 mg PO QAM 07/14/18 07/23/19 Loratadine [Claritin] 10 mg PO DAILY 07/14/18 07/23/19 Gabapentin [Neurontin] 400 mg PO TID 11/12/18 07/23/19 Insulin Glargine,Hum.rec.anlog 10 unit SQ QAM 11/13/18 07/23/19 [Basaglar Kwikpen U-100] Ergocalciferol (Vitamin D2) 50,000 unit PO Q30D 04/03/19 07/23/19 [Vitamin D2] Ferrous Sulfate [Feosol] 325 mg PO DAILY 04/03/19 07/23/19 Calcitriol 0.25 mcg PO Q7D 07/23/19 07/23/19 Memantine [Namenda] See Taper PO DIRECTED 07/23/19 07/23/19 Omeprazole 40 mg PO DAILY 07/23/19 07/23/19 metFORMIN HCL 1,000 mg PO BID 07/23/19 07/23/19 traMADol HCL 50 mg PO Q6H PRN 07/23/19 07/23/19 Previous Rx's Medication Instructions Recorded Lacosamide [Vimpat] 200 mg PO BID 3 Days #6 tab 06/06/19 Allergies Allergy/AdvReac Type Severity Reaction Status Date / Time No Known Allergies Allergy Verified 07/23/19 13:56 Review of Systems ROS Statement: Those systems with pertinent positive or pertinent negative responses have been documented in the HPI. ROS Other: All systems not noted in ROS Statement are negative. Past Medical History Past Medical History: Blood Disorder, CVA/TIA, Diabetes Mellitus, GERD/Reflux, Hyperlipidemia, Hypertension, Renal Disease, Seizure Disorder Additional Past Medical History / Comment(s): CVA 2017. PAIN, NT IN RT HAND. LAST SEIZURE, UNKNOWN. OCC EDEMA FEET/LOWER LEGS, WEARS SUPPORT SOCKS. GALLSTONES. iron deficiency anemia. History of Any Multi-Drug Resistant Organisms: None Reported Past Surgical History: Orthopedic Surgery Additional Past Surgical History / Comment(s): HX SURGERY KRISTIN FEET/ANKLES D/T INJURY. Past Anesthesia/Blood Transfusion Reactions: No Reported Reaction Past Psychological History: No Psychological Hx Reported Smoking Status: Former smoker Past Alcohol Use History: Occasional Past Drug Use History: None Reported - Past Family History Sister(s) Family Medical History: Cancer Mother Family Medical History: Cancer General Exam Limitations: no limitations General appearance: alert, in no apparent distress Head exam: Present: atraumatic, normocephalic Eye exam: Present: normal appearance, PERRL, EOMI. Absent: nystagmus ENT exam: Present: mucous membranes dry Neck exam: Present: normal inspection. Absent: tenderness, meningismus Respiratory exam: Present: normal lung sounds bilaterally. Absent: respiratory distress, wheezes, rales Cardiovascular Exam: Present: regular rate, normal rhythm GI/Abdominal exam: Present: soft. Absent: distended, tenderness Extremities exam: Present: normal inspection, normal capillary refill. Absent: pedal edema Neurological exam: Present: alert, oriented X3, CN II-XII intact, other (Normal finger to nose bilaterally, normal [id number] bilaterally no ataxia). Absent: motor sensory deficit Psychiatric exam: Present: normal affect, normal mood Skin exam: Present: warm, intact, diaphoretic. Absent: cyanosis Course Vital Signs 07/23/19 07/23/19 07/23/19 11:55 13:30 13:54 Temperature 97.7 F Pulse Rate 79 61 62 Respiratory 20 18 18 Rate Blood Pressure 182/105 175/92 150/92 O2 Sat by Pulse 99 98 98 Oximetry 07/23/19 15:37 Temperature Pulse Rate 68 Respiratory 18 Rate Blood Pressure 157/87 O2 Sat by Pulse 97 Oximetry EKG Findings - EKG Comments: EKG Findings:: EKG: Sinus rhythm with first-degree AV block, rate of 66, DE interval 224, QRS duration 100, QTC 394, no ST segment elevation. Medical Decision Making - Medical Decision Making 63-year-old male presenting with chief complaint of elevated blood pressure. He has known history of hypertension. He reports some mild associated symptoms of dizziness, mild headache, and some nausea. Patient is hypertensive with otherwise stable vitals. He has a nonfocal neurologic exam. He has no ataxia. He has normal finger-nose, normal heel to [place]. Patient has EKG showing sinus rhythm. He has CBC which is significant for hemoglobin 12.7 which is improved from previous. Has a normal CMP, negative troponin. As a CT which shows small lacunar infarcts within the basal ganglia similar to previous CT this is chronic ischemic changes. No intracranial hemorrhage or mass effect. Chest x-ray negative for acute cardiopulmonary disease. I did discuss both observation versus home with close monitoring of blood pressure. Patient does have close outpatient follow-up and will monitor blood pressure at home. his medications are reviewed and presented for this patient. - Lab Data Result diagrams: 07/23/19 12:20 07/23/19 12:20 Lab Results 07/23/19 07/23/19 07/23/19 Range/Units 12:20 12:20 12:20 WBC 5.1 (3.8-10.6) k/uL RBC 4.32 (4.30-5.90) m/uL Hgb 12.7 L (13.0-17.5) gm/dL Hct 38.3 L (39.0-53.0) % MCV 88.6 (80.0-100.0) fL MCH 29.3 (25.0-35.0) pg MCHC 33.1 (31.0-37.0) g/dL RDW 13.1 (11.5-15.5) % Plt Count 104 L (150-450) k/uL Neutrophils % 58 % Lymphocytes % 28 % Monocytes % 7 % Eosinophils % 4 % Basophils % 1 % Neutrophils # 3.0 (1.3-7.7) k/uL Lymphocytes # 1.4 (1.0-4.8) k/uL Monocytes # 0.3 (0-1.0) k/uL Eosinophils # 0.2 (0-0.7) k/uL Basophils # 0.0 (0-0.2) k/uL PT 10.0 (9.0-12.0) sec INR 0.9 (<1.2) Sodium 141 (137-145) mmol/L Potassium 4.5 (3.5-5.1) mmol/L Chloride 108 H (98-107) mmol/L Carbon Dioxide 25 (22-30) mmol/L Anion Gap 8 mmol/L BUN 15 (9-20) mg/dL Creatinine 1.02 (0.66-1.25) mg/dL Est GFR (CKD-EPI)AfAm 90 (>60 ml/min/1.73 sqM) Est GFR (CKD-EPI)NonAf 78 (>60 ml/min/1.73 sqM) Glucose 108 H (74-99) mg/dL Calcium 9.3 (8.4-10.2) mg/dL Total Bilirubin 0.4 (0.2-1.3) mg/dL AST 25 (17-59) U/L ALT 26 (21-72) U/L Alkaline Phosphatase 64 (38-126) U/L Troponin I (0.000-0.034) ng/mL Total Protein 7.6 (6.3-8.2) g/dL Albumin 4.2 (3.5-5.0) g/dL 07/23/19 Range/Units 12:20 WBC (3.8-10.6) k/uL RBC (4.30-5.90) m/uL Hgb (13.0-17.5) gm/dL Hct (39.0-53.0) % MCV (80.0-100.0) fL MCH (25.0-35.0) pg MCHC (31.0-37.0) g/dL RDW (11.5-15.5) % Plt Count (150-450) k/uL Neutrophils % % Lymphocytes % % Monocytes % % Eosinophils % % Basophils % % Neutrophils # (1.3-7.7) k/uL Lymphocytes # (1.0-4.8) k/uL Monocytes # (0-1.0) k/uL Eosinophils # (0-0.7) k/uL Basophils # (0-0.2) k/uL PT (9.0-12.0) sec INR (<1.2) Sodium (137-145) mmol/L Potassium (3.5-5.1) mmol/L Chloride (98-107) mmol/L Carbon Dioxide (22-30) mmol/L Anion Gap mmol/L BUN (9-20) mg/dL Creatinine (0.66-1.25) mg/dL Est GFR (CKD-EPI)AfAm (>60 ml/min/1.73 sqM) Est GFR (CKD-EPI)NonAf (>60 ml/min/1.73 sqM) Glucose (74-99) mg/dL Calcium (8.4-10.2) mg/dL Total Bilirubin (0.2-1.3) mg/dL AST (17-59) U/L ALT (21-72) U/L Alkaline Phosphatase (38-126) U/L Troponin I <0.012 (0.000-0.034) ng/mL Total Protein (6.3-8.2) g/dL Albumin (3.5-5.0) g/dL Disposition Clinical Impression: Hypertension Disposition: HOME SELF-CARE Condition: Fair Instructions (If sedation given, give patient instructions): Chronic Hypertension (ED) Additional Instructions: please take blood pressure medication at home, close monitoring of blood press ure. Please return with worsening or changing symptoms. Is patient prescribed a controlled substance at d/c from ED?: No Referrals: Raúl Abbott DO [Primary Care Provider] - 1-2 days Time of Disposition: 15:50
--- NOTE | 2019-07-23 13:16 | CT ---
EXAMINATION TYPE: CT brain wo con DATE OF EXAM: 07/23/2019 COMPARISON: CT brain 06/27/2017 HISTORY: High BP, Headache CT DLP: 1082.4 mGycm Automated exposure control for dose reduction was used. Helical acquisition through the brain FINDINGS: There is no interval change. No hemorrhage or hydrocephalus. Periventricular white matter shows patch y low attenuation, small lacunar infarcts in the basal ganglia again noted. Encephalomalacia present in the left frontal white matter is stable. Some left frontal low-attenuation has developed in the in terval on axial image 32 consistent with interval cerebrovascular insult which is now likely chronic. No mass effect. Paranasal sinuses are well aerated, mastoid air cells are symmetric. Orbits unremark able. Calvarium is intact. IMPRESSION: CHRONIC SMALL VESSEL ISCHEMIA, AGE RELATED ATROPHY. Interval changes as described. Brain MRI may be o f benefit.
[2019-07-23] MEDS ORDERED: ASPIRIN 325 MG TAB PO STA (13:34)
[2019-07-23] MEDS ORDERED: LABETALOL 5 MG/ML VIAL MDV IVP STA (14:47)
[2019-07-23 16:33] VITALS: BP 180/80; PULSE 65; RESP 19; TEMP 98.1
== END 2019-07-23 16:33 | disposition home or self-care (01) ==
LOC: EC 11:50
DX: I63.81 Other cerebral infarction due to occlusion or stenosis of small artery (principal); I10 Essential (primary) hypertension; R29.700 NIHSS score 0; R42 Dizziness and giddiness; R11.0 Nausea; R09.81 Nasal congestion; E11.9 Type 2 diabetes mellitus without complications; K21.9 Gastro-esophageal reflux disease without esophagitis; G40.909 Epilepsy, unspecified, not intractable, without status epilepticus; D50.9 Iron deficiency anemia, unspecified; Z86.73 Personal history of transient ischemic attack (TIA), and cerebral infarction without residual deficits; Z87.891 Personal history of nicotine dependence; Z79.4 Long term (current) use of insulin; Z79.899 Other long term (current) drug therapy
CPT/HCPCS: 36415; 70450; 71046; 80053; 84484; 85025; 85610; 93005; 96361; 96374; 99285

== ENCOUNTER 2019-08-07 07:19 | Day surgery (SDC) | payer OTHER ==
[2019-07-30 11:16] VITALS: BMI 37.2
--- NOTE | 2019-08-06 16:43 | P.GSHP ---
History of Present Illness H&P Date: 08/07/19 CHIEF COMPLAINT: GERD and colon screen HISTORY OF PRESENT ILLNESS: The patient is a 63-year-old male who presents with gastroesophageal reflux disease and need for colon screen. Upper and lower endoscopy were offered for further evaluation and management. PAST MEDICAL HISTORY: Please see list. PAST SURGICAL HISTORY: Please see list. MEDICATIONS: Please see list. ALLERGIES: Please see list. SOCIAL HISTORY: No illicit drug use FAMILY HISTORY: No reports of Crohn disease or ulcerative colitis. REVIEW OF ORGAN SYSTEMS: CONSTITUTIONAL: No reports of fevers or chills. GI: Denies any blood in stools or constipation. PHYSICAL EXAM: VITAL SIGNS: Stable GENERAL: Well-developed pleasant in no acute distress. HEENT: No scleral icterus. Extraocular movements grossly intact. Moist buccal mucosa. NECK: Supple without lymphadenopathy. CHEST: Unlabored respirations. Equal bilateral excursions. CARDIOVASCULAR: Regular rate and rhythm. Distal 2+ pulses. ABDOMEN: Soft, nondistended. MUSCULOSKELETAL: No clubbing, cyanosis, or edema. ASSESSMENT: 1. Gastroesophageal reflux disease 2. Colon screen. PLAN: 1. Recommend proceeding with an upper and lower endoscopy Past Medical History Past Medical History: Blood Disorder, CVA/TIA, Diabetes Mellitus, GERD/Reflux, Hyperlipidemia, Hypertension, Renal Disease, Seizure Disorder Additional Past Medical History / Comment(s): CVA 2017. PAIN, NT IN RT HAND. LAST SEIZURE, UNKNOWN. OCC EDEMA FEET/LOWER LEGS, WEARS SUPPORT SOCKS. GALLSTONES. iron deficiency anemia. History of Any Multi-Drug Resistant Organisms: None Reported Past Surgical History: Orthopedic Surgery Additional Past Surgical History / Comment(s): HX SURGERY KRISTIN FEET/ANKLES D/T INJURY. Past Anesthesia/Blood Transfusion Reactions: No Reported Reaction Smoking Status: Former smoker - Past Family History Sister(s) Family Medical History: Cancer Mother Family Medical History: Cancer Medications and Allergies Home Medications Medication Instructions Recorded Confirmed Type Labetalol HCl 200 mg PO Q8H 06/27/17 07/30/19 History NIFEdipine [NIFEdipine ER] 90 mg PO QAM 06/27/17 07/30/19 History Lisinopril 40 mg PO QAM 07/14/18 07/30/19 History Loratadine [Claritin] 10 mg PO DAILY 07/14/18 07/30/19 History Gabapentin [Neurontin] 400 mg PO TID 11/12/18 07/30/19 History Insulin Glargine,Hum.rec.anlog 10 unit SQ QAM 11/13/18 07/30/19 History [Robertaglcali [place]pen U-100] Ergocalciferol (Vitamin D2) 50,000 unit PO Q30D 04/03/19 07/30/19 History [Vitamin D2] Ferrous Sulfate [Feosol] 325 mg PO DAILY 04/03/19 07/30/19 History Lacosamide [Vimpat] 200 mg PO BID 3 Days #6 tab 06/06/19 07/30/19 Rx Calcitriol 0.25 mcg PO Q7D 07/23/19 07/30/19 History Memantine [Namenda] 5 mg PO DIRECTED 07/23/19 07/30/19 History Omeprazole 40 mg PO DAILY 07/23/19 07/30/19 History metFORMIN HCL 1,000 mg PO BID 07/23/19 07/30/19 History Allergies Allergy/AdvReac Type Severity Reaction Status Date / Time No Known Allergies Allergy Verified 07/30/19 11:04
[~2019-08-07 07:19] MED LIST changes: -HEPARIN SODIUM,PORCINE 5,000 UNIT/ML 1 ML VIAL SQ ONE; -LIDOCAINE 1% 20 ML VIAL (10MG/ML) FOR IV START INTRADERMA PRN; -MIDAZOLAM 2 MG/2 ML VIAL IV PRN; -ONDANSETRON 4 MG/2 ML VIAL IVP ONE; -ONDANSETRON 4 MG/2 ML VIAL IVP PRN; -SCOPOLAMINE 1.5MG/72HR PATCH TRANSDERM ONE
[2019-08-07 07:50] VITALS: RESP 16; TEMP 97.9
[2019-08-07] MEDS ORDERED: LIDOCAINE 1% 20 ML VIAL (10MG/ML) FOR IV START INTRADERMA ONE (07:50)
[2019-08-07 07:55] LABS: Glucose,Whole Blood 101 mg/dL (75-99)
[2019-08-07] MEDS ORDERED: PROPOFOL 10 MG/ML 20 ML VIAL IV ONE (09:07)
--- NOTE | 2019-08-07 09:24 | P.PCN ---
Date of Procedure: 08/07/19 Description of Procedure: PREOPERATIVE DIAGNOSIS: Gastroesophageal reflux disease. POSTOPERATIVE DIAGNOSIS: Gastritis. Gastroesophageal reflux disease. Diaphragmatic hiatal hernia OPERATION: Esophagogastroduodenoscopy with biopsies along antrum and GE junction SURGEON: Lisa Hayes MD ANESTHESIA: MAC. INDICATIONS: The patient is a 63-year-old male who presents with a history of reflux disease. Benefits and risks of the procedure were described. Informed consent was obtained. DESCRIPTION: The patient was brought into the endoscopy suite and laid in the left lateral decubitus position. An Olympus gastroscope was passed along the posterior oropharynx down to the distal esophagus where the squamocolumnar junction was encountered at 37 cm from the incisors. The stomach was entered and no bile reflux was found. Additional findings are listed below. Biopsies with cold forceps were obtained of the antrum. The first through third portion of the duodenum was examined and unremarkable. Retroflexion of the scope confirmed Hill grade 2 lower esophageal valve. The squamocolumnar junction demonstrated LA grade B erosive esophagitis. The stomach was desufflated. The patient tolerated the procedure well. FINDINGS: Squamocolumnar junction 37 cm from the incisors. Diaphragmatic hiatus at 39 cm. Hiatal hernia, 2 cm Hill grade 2 lower esophageal valve. LA grade B erosive esophagitis. No active duodenitis. Chronic gastritis RECOMMENDATIONS: Upper endoscopy as needed.
--- NOTE | 2019-08-07 09:41 | P.PCN ---
Date of Procedure: 08/07/19 Description of Procedure: PREOPERATIVE DIAGNOSIS: Colonoscopy screening, first POSTOPERATIVE DIAGNOSIS: Colonoscopy screening, first Diverticulosis, scattered. OPERATION: Colonoscopy to the ileocecal valve SURGEON: Lisa Hayes MD. ANESTHESIA: MAC. INDICATIONS: The patient is a 63-year-old male who presents for colonoscopy screening. Benefits and risks were described and informed consent was obtained. DESCRIPTION OF PROCEDURE: The patient had undergone Suprep. He had been brought into the operating room and laid in the left lateral decubitus position. After adequate intravenous sedation, the rectum was examined with 2% lidocaine jelly. The prostatic fossa was unremarkable. No external hemorrhoids were encountered. The rectal tone was within normal limits. No lesions were palpated in the rectal vault. An Olympus colonoscope was advanced until the ileocecal valve was viewed. The prep was good. Large sigmoid diverticulosis was encountered. No colonic polyps were found. No evidence of focal colitis was found. Retroflexion of the scope demonstrated no internal hemorrhoids. The colon was desufflated. The patient had tolerated the procedure well. Withdrawal time was over 6 minutes. FINDINGS: Aronchick preparation quality scale 2 (1-5) No internal hemorrhoids No external prolapsed hemorrhoids. No arteriovenous malformations. No adenomatous polyps. Large sigmoid diverticulosis No focal colitis. RECOMMENDATIONS: Lower endoscopy in 10 years, 2028 or Cologuard Plan - Discharge Summary Discharge Rx Participant: No New Discharge Prescriptions: No Action NIFEdipine [NIFEdipine ER] 90 mg PO QAM Labetalol HCl 200 mg PO Q8H Lisinopril 40 mg PO QAM Loratadine [Claritin] 10 mg PO DAILY Gabapentin [Neurontin] 400 mg PO TID Insulin Glargine,Hum.rec.anlog [Basaglar Kwikpen U-100] 10 unit SQ QAM Ferrous Sulfate [Feosol] 325 mg PO DAILY Ergocalciferol (Vitamin D2) [Vitamin D2] 50,000 unit PO Q30D Lacosamide [Vimpat] 200 mg PO BID 3 Days #6 tab metFORMIN HCL 1,000 mg PO BID Memantine [Namenda] 5 mg PO DIRECTED Calcitriol 0.25 mcg PO Q7D Omeprazole 40 mg PO DAILY Discharge Medication List Labetalol HCl 200 mg PO Q8H 06/27/17 [History] NIFEdipine [NIFEdipine ER] 90 mg PO QAM 06/27/17 [History] Lisinopril 40 mg PO QAM 07/14/18 [History] Loratadine [Claritin] 10 mg PO DAILY 07/14/18 [History] Gabapentin [Neurontin] 400 mg PO TID 11/12/18 [History] Insulin Glargine,Hum.rec.anlog [Basaglar Kwikpen U-100] 10 unit SQ QAM 11/13/18 [History] Ergocalciferol (Vitamin D2) [Vitamin D2] 50,000 unit PO Q30D 04/03/19 [History] Ferrous Sulfate [Feosol] 325 mg PO DAILY 04/03/19 [History] Lacosamide [Vimpat] 200 mg PO BID 3 Days #6 tab 06/06/19 [Rx] Calcitriol 0.25 mcg PO Q7D 07/23/19 [History] Memantine [Namenda] 5 mg PO DIRECTED 07/23/19 [History] Omeprazole 40 mg PO DAILY 07/23/19 [History] metFORMIN HCL 1,000 mg PO BID 07/23/19 [History] Follow up Appointment(s)/Referral(s): Lisa Hayes MD [STAFF PHYSICIAN] - As Needed Patient Instructions/Handouts: Diverticulosis Diet (GEN), Diverticulosis (DC), Hiatal Hernia (DC) Activity/Diet/Wound Care/Special Instructions: Repeat colonoscopy 10 years, 2028 or [facility] Discharge Disposition: HOME SELF-CARE
[2019-08-07 10:12] VITALS: BP 134/90; PULSE 68
== END 2019-08-07 10:27 | disposition home or self-care (01) ==
LOC: ORWHC2ENDO 07:19
PROVIDERS: ATTEND Surgery Plastic and Reconstructive Surgery
DX: Z12.11 Encounter for screening for malignant neoplasm of colon (principal); K57.30 Diverticulosis of large intestine without perforation or abscess without bleeding; D50.9 Iron deficiency anemia, unspecified; K29.50 Unspecified chronic gastritis without bleeding; K21.0 Gastro-esophageal reflux disease with esophagitis; K22.10 Ulcer of esophagus without bleeding; K44.9 Diaphragmatic hernia without obstruction or gangrene; I10 Essential (primary) hypertension; E11.9 Type 2 diabetes mellitus without complications; G40.909 Epilepsy, unspecified, not intractable, without status epilepticus; E78.5 Hyperlipidemia, unspecified; Z86.73 Personal history of transient ischemic attack (TIA), and cerebral infarction without residual deficits; Z90.49 Acquired absence of other specified parts of digestive tract; Z79.4 Long term (current) use of insulin; Z79.899 Other long term (current) drug therapy; Z87.891 Personal history of nicotine dependence; Z80.9 Family history of malignant neoplasm, unspecified
CPT/HCPCS: 88305; 43239; J2704; G0121

== ENCOUNTER 2019-08-25 00:47 | Emergency (ER) | payer OTHER ==
[2019-08-25 01:01] VITALS: RESP 18; TEMP 97.8
[2019-08-25] MEDS ORDERED: SODIUM CHLORIDE 0.9% 500 ML 500 ML IV STA (02:16)
[2019-08-25] MEDS ORDERED: LABETALOL 5 MG/ML VIAL MDV IVP STA ×2 (02:17→03:45)
--- NOTE | 2019-08-25 02:34 | CT ---
EXAMINATION TYPE: CT brain wo con DATE OF EXAM: 08/25/2019 COMPARISON: 07/23/2019 HISTORY: headache CT DLP: 1087.4 mGycm Automated exposure control for dose reduction was used. There is mild cerebral atrophy. There is some hypodensity in the periventricular white matter around the frontal horns of the lateral ventricles. There is no midline shift. There is no sign of intracran ial hemorrhage. Calvarium is intact. IMPRESSION: Chronic small vessel ischemia in the white matter of both frontal lobes. No acute intracranial abnorm ality. No change.
[2019-08-25 03:02] LABS: Basophils % (A) 1 %; Eosinophils # (A) 0.2 k/uL (0-0.7); Eosinophils % (A) 4 %; HCT 38.2 % (39.0-53.0); HGB 12.5 gm/dL (13.0-17.5); Lymphocytes # (A) 1.7 k/uL (1.0-4.8); Lymphocytes % (A) 32 %; MCH 29.4 pg (25.0-35.0); MCHC 32.6 g/dL (31.0-37.0); MCV 90.2 fL (80.0-100.0); Mean Platelet Volume 9.6; Monocytes # (A) 0.3 k/uL (0-1.0); Monocytes % (A) 5 %; Neutrophils % (A) 57 %; Platelet Count 108 k/uL (150-450); RBC 4.23 m/uL (4.30-5.90); RDW 13.1 % (11.5-15.5); WBC 5.3 k/uL (3.8-10.6)
[2019-08-25 03:10] LABS: Albumin 4.1 g/dL (3.5-5.0); Calcium 9.3 mg/dL (8.4-10.2); Potassium 4.6 mmol/L (3.5-5.1); Total Bilirubin 0.3 mg/dL (0.2-1.3); Total Protein 7.5 g/dL (6.3-8.2)
--- NOTE | 2019-08-25 04:40 | ED ---
General Adult HPI - General Chief complaint: Recheck/Abnormal Lab/Rx Stated complaint: High BP/High Sugar Time Seen by Provider: 08/25/19 02:02 Source: patient, RN notes reviewed, old records reviewed Mode of arrival: ambulatory Limitations: no limitations - History of Present Illness Initial comments: 63-year-old male patient presents with the chief complaint of headache, hypertension. Patient reports that approximately 2 hours prior to presentation he took his sugar and it was elevated around 200. Dental his blood pressure is also elevated around 180 systolic. Patient reports that shortly after he began to experience a frontal lobe headache moderate in severity. Patient forced this headache to have a fairly rapid onset. Denies any loss of consciousness. Denies any other red flag symptoms. Denies worse headache of life. Patient retook his blood pressure multiple times and continued to be elevated. Patient then presented to emergency department. Systemic: Pt denies fatigue, fever/chills, rash. Pt denies weakness, night sweats, weight loss. Neuro: Pt denies visual disturbances, syncope or pre-syncope. HEENT: Pt denies ocular discharge or irritation, otalgia, rhinorrhea, pharyngitis or notable lymphadenopathy. Cardiopulmonary: Pt denies chest pain, SOB, heart palpitations, dyspnea on exertion. Abdominal/GI: Pt denies abdominal pain, n/v/d. : Pt denies dysuria, burning w/ urination, frequency/urgency. Denies new onset urinary or bowel incontinence. MSK: Pt denies myalgia, loss of strength or function in extremities. Neuro: Pt denies new onset weakness, paresthesias. - Related Data Home Medications Medication Instructions Recorded Confirmed Labetalol HCl 200 mg PO Q8H 06/27/17 07/30/19 NIFEdipine [NIFEdipine ER] 90 mg PO QAM 06/27/17 07/30/19 Lisinopril 40 mg PO QAM 07/14/18 07/30/19 Loratadine [Claritin] 10 mg PO DAILY 07/14/18 07/30/19 Gabapentin [Neurontin] 400 mg PO TID 11/12/18 07/30/19 Insulin Glargine,Hum.rec.anlog 10 unit SQ QAM 11/13/18 07/30/19 [Basaglar Kirbyikpen U-100] Ergocalciferol (Vitamin D2) 50,000 unit PO Q30D 04/03/19 07/30/19 [Vitamin D2] Ferrous Sulfate [Feosol] 325 mg PO DAILY 04/03/19 07/30/19 Calcitriol 0.25 mcg PO Q7D 07/23/19 07/30/19 Memantine [Namenda] 5 mg PO DIRECTED 07/23/19 07/30/19 Omeprazole 40 mg PO DAILY 07/23/19 07/30/19 metFORMIN HCL 1,000 mg PO BID 07/23/19 07/30/19 Previous Rx's Medication Instructions Recorded Lacosamide [Vimpat] 200 mg PO BID 3 Days #6 tab 06/06/19 Allergies Allergy/AdvReac Type Severity Reaction Status Date / Time No Known Allergies Allergy Verified 08/25/19 01:00 Review of Systems ROS Statement: Those systems with pertinent positive or pertinent negative responses have been documented in the HPI. ROS Other: All systems not noted in ROS Statement are negative. Past Medical History Past Medical History: Blood Disorder, CVA/TIA, Diabetes Mellitus, GERD/Reflux, Hyperlipidemia, Hypertension, Renal Disease, Seizure Disorder Additional Past Medical History / Comment(s): CVA 2017. PAIN, NT IN RT HAND. LAST SEIZURE, UNKNOWN. OCC EDEMA FEET/LOWER LEGS, WEARS SUPPORT SOCKS. GALLSTONES. iron deficiency anemia. History of Any Multi-Drug Resistant Organisms: None Reported Past Surgical History: Orthopedic Surgery Additional Past Surgical History / Comment(s): HX SURGERY KRISTIN FEET/ANKLES D/T INJURY. Past Anesthesia/Blood Transfusion Reactions: No Reported Reaction Past Psychological History: No Psychological Hx Reported Smoking Status: Former smoker Past Alcohol Use History: None Reported Past Drug Use History: None Reported - Past Family History Sister(s) Family Medical History: Cancer Mother Family Medical History: Cancer General Exam - General Exam Comments Initial Comments: Constitutional: NAD, AOX3, Pt has pleasant affect. HEENT: NC/AT, trachea midline, neck supple, no lymphadenopathy. Posterior pharynx non erythematous, without exudates. External ears appear normal, without discharge. Mucous membranes moist. Eyes PERRLA, EOM intact. There is no scleral icterus. No pallor noted. Cardiopulmonary: RRR, no murmurs, rubs or gallops, no JVD noted. Lungs CTAB in a nterior and posterior gabriel. No peripheral edema. Abdominal exam: Abdomen soft and non-distended. Abdomen non-tender to palpation in all 4 quadrants. Bowel sounds active in LLQ. No hepatosplenomegaly. No ecchymosis Neuro: CN II-XII intact. No nuchal rigidity. No raccon eyes, no moreno sign, no hemotympanum. No cervical spinal tenderness. NIH 0. MSK: No posterior calf tenderness bilaterally, homans sign negative bilaterally. Posterior tibialis and radial pulse +2 bilaterally. Sensation intact in upper and lower extremities. Full active ROM in upper and lower extremities, 5/5 stregnth. Limitations: no limitations Course Vital Signs 08/25/19 08/25/19 08/25/19 00:55 03:00 03:30 Temperature 97.8 F Pulse Rate 80 73 75 Respiratory 18 18 18 Rate Blood Pressure 206/116 185/111 182/109 O2 Sat by Pulse 98 98 99 Oximetry Medical Decision Making - Medical Decision Making 63-year-old male patient presents to ED with chief complaint of headache and hypertension. Patient doesn't history of hypertension, type 2 diabetes, prior CVA. Patient vital signs did display hypertension. Physical exam dentist acute pathology neurologic exam was intact. NIH is 0. Laboratory investigations were conducted and were overall non-impressive. Hemoglobin 12.5 glucose 126. Troponin negative. EKG is nonischemic. CT of brain without contrast was performed and display chronic small vessel ischemia in the white matter both frontal lobes. No acute intracranial abnormality. No change. Patient was administered antihypertensive. Headache resolved. Blood pressure is within a couple limits upon discharge. Patient will be discharged will follow up with primary care provider first thing tomorrow for evaluation of blood pressure medications. Case discussed with Dr. Muñoz. - Lab Data Result diagrams: 08/25/19 02:45 08/25/19 02:45 Lab Results 08/25/19 08/25/19 08/25/19 Range/Units 02:45 02:45 02:45 WBC 5.3 (3.8-10.6) k/uL RBC 4.23 L (4.30-5.90) m/uL Hgb 12.5 L (13.0-17.5) gm/dL Hct 38.2 L (39.0-53.0) % MCV 90.2 (80.0-100.0) fL MCH 29.4 (25.0-35.0) pg MCHC 32.6 (31.0-37.0) g/dL RDW 13.1 (11.5-15.5) % Plt Count 108 L (150-450) k/uL Neutrophils % 57 % Lymphocytes % 32 % Monocytes % 5 % Eosinophils % 4 % Basophils % 1 % Neutrophils # 3.0 (1.3-7.7) k/uL Lymphocytes # 1.7 (1.0-4.8) k/uL Monocytes # 0.3 (0-1.0) k/uL Eosinophils # 0.2 (0-0.7) k/uL Basophils # 0.0 (0-0.2) k/uL Sodium 143 (137-145) mmol/L Potassium 4.6 (3.5-5.1) mmol/L Chloride 109 H (98-107) mmol/L Carbon Dioxide 26 (22-30) mmol/L Anion Gap 8 mmol/L BUN 17 (9-20) mg/dL Creatinine 1.07 (0.66-1.25) mg/dL Est GFR (CKD-EPI)AfAm 85 (>60 ml/min/1.73 sqM) Est GFR (CKD-EPI)NonAf 74 (>60 ml/min/1.73 sqM) Glucose 126 H (74-99) mg/dL Calcium 9.3 (8.4-10.2) mg/dL Total Bilirubin 0.3 (0.2-1.3) mg/dL AST 30 (17-59) U/L ALT 26 (4-49) U/L Alkaline Phosphatase 62 (38-126) U/L Troponin I <0.012 (0.000-0.034) ng/mL Total Protein 7.5 (6.3-8.2) g/dL Albumin 4.1 (3.5-5.0) g/dL - EKG Data -: EKG Interpreted by Me (Ventricular rate 71,. Full to 32. QRS 106) Disposition Clinical Impression: Hypertension, Headache Disposition: HOME SELF-CARE Condition: Stable Instructions (If sedation given, give patient instructions): Hypertension (ED), Acute Headache (ED) Additional Instructions: Follow-up with primary care provider first thing tomorrow for evaluation of blood pressure medication. Continue to monitor blood pressure at home. Return to ER if condition worsens in any way. Is patient prescribed a controlled substance at d/c from ED?: No Referrals: Raúl Abbott DO [Primary Care Provider] - 1-2 days
[2019-08-25] MEDS ORDERED: ENALAPRILAT 1.25 MG/ML 1 ML VIAL IVP STA (04:55)
[2019-08-25 07:18] VITALS: BP 148/92; PULSE 71
== END 2019-08-25 07:18 | disposition home or self-care (01) ==
LOC: EC 00:47
DX: I10 Essential (primary) hypertension (principal); E11.9 Type 2 diabetes mellitus without complications; K21.9 Gastro-esophageal reflux disease without esophagitis; Z79.4 Long term (current) use of insulin; Z79.899 Other long term (current) drug therapy; Z86.73 Personal history of transient ischemic attack (TIA), and cerebral infarction without residual deficits; Z87.891 Personal history of nicotine dependence
CPT/HCPCS: 36415; 70450; 80053; 84484; 85025; 93005; 96361; 96374; 96375; 96376; 99285

== ENCOUNTER → 2019-09-08 | Outpatient (CLI) | payer OTHER ==
[2019-09-08 17:49] LABS: Mean Platelet Volume 10.7; Platelet Count 102 k/uL (150-450)
== END | disposition home or self-care (01) ==
LOC: LABWHC1 17:10
PROVIDERS: ATTEND Nurse Practitioner Family
DX: E11.9 Type 2 diabetes mellitus without complications (principal); K21.9 Gastro-esophageal reflux disease without esophagitis; D50.9 Iron deficiency anemia, unspecified; D69.6 Thrombocytopenia, unspecified
CPT/HCPCS: 36415; 85049

== ENCOUNTER → 2019-10-02 | Outpatient (CLI) | payer OTHER ==
[2019-10-02 16:04] LABS: HCT 36.9 % (39.0-53.0); HGB 11.9 gm/dL (13.0-17.5); MCH 29.4 pg (25.0-35.0); MCHC 32.2 g/dL (31.0-37.0); MCV 91.4 fL (80.0-100.0); Mean Platelet Volume 8.8; Platelet Count 115 k/uL (150-450); RBC 4.03 m/uL (4.30-5.90); RDW 12.6 % (11.5-15.5); WBC 5.1 k/uL (3.8-10.6)
[2019-10-02 16:36] LABS: Appearance,Urine Clear (Clear); Bilirubin,Urine Negative (Negative); Blood,Urine Negative (Negative); Color,Urine Yellow; Glucose,Urine (UA) Negative (Negative); Ketones,Urine Negative (Negative); Leukocyte Esterase,Urine Negative (Negative); Nitrite,Urine Negative (Negative); Protein,Urine Negative (Negative); Specific Gravity,Urine 1.016 (1.001-1.035); Urobilinogen,Urine <2.0 mg/dL (<2.0)
[2019-10-03 02:32] LABS: % Iron Saturation 39.45 (15.00-50.00); African American GFR (CKD) 66.8 (60.0-200.0); Albumin 4.3 g/dL (3.80-4.90); Albumin/Globulin Ratio 1.95 (1.60-3.17); Anion Gap 6.2 mmol/L (4.00-12.00); BUN/Creat Ratio 11.54 Ratio (12.00-20.00); Calcium 8.8 mg/dL (8.7-10.3); Carbon Dioxide 21.8 mmol/L (21.6-31.8); Globulin 2.2 g/dL (1.6-3.3); Magnesium 1.9 mg/dL (1.5-2.4); Non-African American GFR(CKD) 57.7 (60.0-200.0); Phosphorus 3.2 mg/dL (2.4-5.1); Total Bilirubin 0.2 mg/dL (0.3-1.2); Total Protein 6.5 g/dL (6.2-8.2); Uric Acid 8.2 mg/dL (3.7-8.7)
[2019-10-03 02:46] LABS: Ferritin 381.1 ng/mL (22.0-322.0)
[2019-10-03 04:18] LABS: Hemoglobin A1C 7.1 % (4.0-6.0)
== END | disposition home or self-care (01) ==
LOC: LABWHC1 15:21
PROVIDERS: ATTEND Nurse Practitioner Family
DX: E11.9 Type 2 diabetes mellitus without complications (principal); N18.2 Chronic kidney disease, stage 2 (mild); D64.1 Secondary sideroblastic anemia due to disease; N39.0 Urinary tract infection, site not specified; E21.3 Hyperparathyroidism, unspecified; M10.9 Gout, unspecified; E55.9 Vitamin D deficiency, unspecified
CPT/HCPCS: 36415; 80053; 81003; 82043; 82306; 82570; 82728; 83036; 83540; 83550; 83735; 83970; 84100; 84550; 85027

== ENCOUNTER → 2019-10-13 | Outpatient (CLI) | payer OTHER ==
[2019-10-13 17:25] LABS: African American GFR (CKD) 73.6 (60.0-200.0); Anion Gap 7.5 mmol/L (4.00-12.00); BUN/Creat Ratio 14.17 Ratio (12.00-20.00); Calcium 9.2 mg/dL (8.7-10.3); Carbon Dioxide 25.5 mmol/L (21.6-31.8); Non-African American GFR(CKD) 63.5 (60.0-200.0); Potassium 5.2 mmol/L (3.5-5.5)
== END | disposition home or self-care (01) ==
LOC: LABWHC1 09:41
PROVIDERS: ATTEND Internal Medicine
DX: N18.2 Chronic kidney disease, stage 2 (mild) (principal)
CPT/HCPCS: 36415; 80048

== ENCOUNTER 2019-12-01 08:35 | Emergency (ER) | payer OTHER ==
[2019-12-01 08:43] VITALS: TEMP 97.8
[2019-12-01] MEDS ORDERED: diphenhydrAMINE 50 MG/ML 1 ML VIAL IVP STA (08:55)
[2019-12-01] MEDS ORDERED: METOCLOPRAMIDE 5 MG/ML 2 ML VIAL IVP STA (08:55)
[2019-12-01] MEDS ORDERED: SODIUM CHLORIDE 0.9% 500 ML 500 ML IV STA (08:55)
--- NOTE | 2019-12-01 08:58 | ED ---
General Adult HPI - General Chief complaint: Recheck/Abnormal Lab/Rx Stated complaint: headache Time Seen by Provider: 12/01/19 08:44 Source: patient, RN notes reviewed, old records reviewed Mode of arrival: ambulatory Limitations: no limitations - History of Present Illness Initial comments: Patient is a pleasant 63-year-old male presenting to the emergency department with concerns of hypertension and headache. Headache started last night. Headache was gradual onset and progressed over a couple of hours. Headache seemed to be getting a little bit better over progressively worsened again this morning. Discomfort is currently 8/10. Headache is frontal. No visual change. No weakness. No confusion. No speech problem. Patient does get similar headaches several times per year. Patient has had previous head CT's. Patient checked his blood pressure this morning and found it to be elevated, over 190/90. Patient states he does take blood pressure medication and did take his morning medication at 6 AM. - Related Data Home Medications Medication Instructions Recorded Confirmed Labetalol HCl 200 mg PO Q8H 06/27/17 12/01/19 NIFEdipine [NIFEdipine ER] 90 mg PO QAM 06/27/17 12/01/19 Lisinopril 40 mg PO QAM 07/14/18 12/01/19 Loratadine [Claritin] 10 mg PO DAILY 07/14/18 12/01/19 Gabapentin [Neurontin] 400 mg PO TID 11/12/18 12/01/19 Ergocalciferol (Vitamin D2) 50,000 unit PO Q30D 04/03/19 12/01/19 [Vitamin D2] Ferrous Sulfate [Feosol] 325 mg PO DAILY 04/03/19 12/01/19 Calcitriol 0.25 mcg PO TH 07/23/19 12/01/19 Omeprazole 40 mg PO DAILY 07/23/19 12/01/19 metFORMIN HCL 1,000 mg PO BID 07/23/19 12/01/19 Previous Rx's Medication Instructions Recorded Lacosamide [Vimpat] 200 mg PO BID 3 Days #6 tab 06/06/19 Allergies Allergy/AdvReac Type Severity Reaction Status Date / Time No Known Allergies Allergy Verified 12/01/19 08:43 Review of Systems ROS Statement: Those systems with pertinent positive or pertinent negative responses have been documented in the HPI. ROS Other: All systems not noted in ROS Statement are negative. Constitutional: Denies: fever Eyes: Denies: eye pain ENT: Denies: ear pain Respiratory: Denies: cough, dyspnea Cardiovascular: Denies: chest pain Endocrine: Denies: fatigue Gastrointestinal: Denies: abdominal pain Genitourinary: Denies: dysuria Musculoskeletal: Denies: back pain Skin: Denies: rash Neurological: Reports: as per HPI, headache. Denies: weakness, confusion Past Medical History Past Medical History: Blood Disorder, CVA/TIA, Diabetes Mellitus, GERD/Reflux, Hyperlipidemia, Hypertension, Renal Disease, Seizure Disorder Additional Past Medical History / Comment(s): CVA 2017. LAST SEIZURE, UNKNOWN. iron deficiency anemia. History of Any Multi-Drug Resistant Organisms: None Reported Past Surgical History: Orthopedic Surgery Additional Past Surgical History / Comment(s): HX SURGERY KRISTIN FEET/ANKLES D/T INJURY. Past Anesthesia/Blood Transfusion Reactions: No Reported Reaction Past Psychological History: No Psychological Hx Reported Smoking Status: Former smoker Past Alcohol Use History: None Reported Past Drug Use History: None Reported - Past Family History Sister(s) Family Medical History: Cancer Mother Family Medical History: Cancer General Exam Limitations: no limitations General appearance: alert, in no apparent distress Head exam: Present: atraumatic, normocephalic, other (No tenderness over the temporal arteries) Eye exam: Present: normal appearance, PERRL, EOMI. Absent: nystagmus ENT exam: Present: normal oropharynx Neck exam: Present: normal inspection Respiratory exam: Present: normal lung sounds bilaterally Cardiovascular Exam: Present: regular rate, normal rhythm GI/Abdominal exam: Present: soft. Absent: tenderness Extremities exam: Present: normal inspection Neurological exam: Present: alert, oriented X3, CN II-XII intact. Absent: motor sensory deficit Expanded Neurological exam: Present: protecting the airway Speech: Present: fluid speech Cranial nerves: EOM's Intact: Normal Sensory exam: Upper Extremity Light Touch: Normal, Lower Extremity Light Touch: Normal Motor strength exam: RUE: 5, LUE: 5, RLE: 5, LLE: 5 Eye Response: (4) open spontaneously Motor Response: (6) obeys commands Verbal Response: (5) oriented Psychiatric exam: Present: normal affect, normal mood Skin exam: Present: normal color Course Vital Signs 12/01/19 12/01/19 08:39 10:04 Temperature 97.8 F Pulse Rate 77 68 Respiratory 18 15 Rate Blood Pressure 190/98 144/77 O2 Sat by Pulse 100 98 Oximetry Medical Decision Making - Medical Decision Making Patient reevaluated and feels much better. Patient states symptoms are minimal and is comfortable going home. Blood pressure significantly improved. Patient states he may not be on his blood pressure medication to correct way and will discuss this with his doctor today. Patient states there is an 1140 appointment. Disposition Clinical Impression: Hypertension, Cephalgia Disposition: HOME SELF-CARE Condition: Stable Instructions (If sedation given, give patient instructions): Hypertension (ED), General Headache (ED) Additional Instructions: Please follow-up today with primary care physician as directed. Please discuss blood pressure medications with your primary care physician. Return for uncontrolled blood pressure, increased headache, confusion or weakness or fever, worsening symptoms or any other concerns. Is patient prescribed a controlled substance at d/c from ED?: No Referrals: Raúl Abbott DO [Primary Care Provider] - 1-2 days Time of Disposition: 10:21
[2019-12-01] MEDS ORDERED: LISINOPRIL 20 MG TAB PO STA (09:11)
[2019-12-01 10:06] VITALS: BP 144/77; PULSE 68; RESP 15
== END 2019-12-01 10:35 | disposition home or self-care (01) ==
LOC: EC 08:35
DX: I10 Essential (primary) hypertension (principal); R51 Headache; E11.9 Type 2 diabetes mellitus without complications; K21.9 Gastro-esophageal reflux disease without esophagitis; G40.909 Epilepsy, unspecified, not intractable, without status epilepticus; D50.9 Iron deficiency anemia, unspecified; Z79.84 Long term (current) use of oral hypoglycemic drugs; Z79.899 Other long term (current) drug therapy; Z87.891 Personal history of nicotine dependence; Z86.73 Personal history of transient ischemic attack (TIA), and cerebral infarction without residual deficits
CPT/HCPCS: 99284; 96374; 96375; 96361; J1200; J2765

== ENCOUNTER 2019-12-01 13:16 | Emergency (ER) | payer OTHER ==
[2019-12-01] MEDS ORDERED: LISINOPRIL 20 MG TAB PO STA (13:35)
--- NOTE | 2019-12-01 13:39 | ED ---
General Adult HPI - General Chief complaint: Recheck/Abnormal Lab/Rx Stated complaint: High blood pressure and headache Time Seen by Provider: 12/01/19 13:28 Source: patient, RN notes reviewed Mode of arrival: ambulatory Limitations: no limitations - History of Present Illness Initial comments: Patient is a pleasant 63-year-old male presenting to the emergency department with complaints of high blood pressure. Patient states she did go to his doctor after being seen earlier today. Patient states blood pressure was fine there. Patient states following that he went home and blood pressure was 178/98. Patient states he is having mild return of his headache. Patient denies any other complaints. No confusion, no speech problems, no weakness. Patient admits to having similar problems including headaches previously. Patient states blood pressure does not usually run this high. Patient states he has not taken any additional medication since he left the emergency department. Patient states he believes his doctor wrote him out to prescriptions. Patient states he did take his metoprolol this morning however did not take his lisinopril. - Related Data Home Medications Medication Instructions Recorded Confirmed Labetalol HCl 200 mg PO Q8H 06/27/17 12/01/19 NIFEdipine [NIFEdipine ER] 90 mg PO QAM 06/27/17 12/01/19 Lisinopril 40 mg PO QAM 07/14/18 12/01/19 Loratadine [Claritin] 10 mg PO DAILY 07/14/18 12/01/19 Gabapentin [Neurontin] 400 mg PO TID 11/12/18 12/01/19 Ergocalciferol (Vitamin D2) 50,000 unit PO Q30D 04/03/19 12/01/19 [Vitamin D2] Ferrous Sulfate [Feosol] 325 mg PO DAILY 04/03/19 12/01/19 Calcitriol 0.25 mcg PO TH 07/23/19 12/01/19 Omeprazole 40 mg PO DAILY 07/23/19 12/01/19 metFORMIN HCL 1,000 mg PO BID 07/23/19 12/01/19 Previous Rx's Medication Instructions Recorded Lacosamide [Vimpat] 200 mg PO BID 3 Days #6 tab 06/06/19 Allergies Allergy/AdvReac Type Severity Reaction Status Date / Time No Known Allergies Allergy Verified 12/01/19 13:25 Review of Systems ROS Statement: Those systems with pertinent positive or pertinent negative responses have been documented in the HPI. ROS Other: All systems not noted in ROS Statement are negative. Constitutional: Denies: fever Eyes: Denies: eye pain ENT: Denies: ear pain Respiratory: Denies: cough Cardiovascular: Denies: chest pain Endocrine: Denies: fatigue Gastrointestinal: Denies: abdominal pain Genitourinary: Denies: dysuria Musculoskeletal: Denies: back pain Skin: Denies: rash Neurological: Reports: as per HPI, headache. Denies: weakness, numbness, paresthesias, confusion, abnormal gait, vertigo Past Medical History Past Medical History: Blood Disorder, CVA/TIA, Diabetes Mellitus, GERD/Reflux, Hyperlipidemia, Hypertension, Renal Disease, Seizure Disorder Additional Past Medical History / Comment(s): CVA 2017. LAST SEIZURE, UNKNOWN. iron deficiency anemia. History of Any Multi-Drug Resistant Organisms: None Reported Past Surgical History: Orthopedic Surgery Additional Past Surgical History / Comment(s): HX SURGERY KRISTIN FEET/ANKLES D/T INJURY. Past Anesthesia/Blood Transfusion Reactions: No Reported Reaction Past Psychological History: No Psychological Hx Reported Smoking Status: Former smoker Past Alcohol Use History: None Reported Past Drug Use History: None Reported - Past Family History Sister(s) Family Medical History: Cancer Mother Family Medical History: Cancer General Exam Limitations: no limitations General appearance: alert, in no apparent distress Head exam: Present: normocephalic Eye exam: Present: normal appearance, PERRL, EOMI Neck exam: Present: normal inspection Respiratory exam: Present: normal lung sounds bilaterally Cardiovascular Exam: Present: regular rate, normal rhythm GI/Abdominal exam: Present: soft. Absent: tenderness Extremities exam: Present: normal inspection Neurological exam: Present: alert, oriented X3, CN II-XII intact. Absent: motor sensory deficit Expanded Neurological exam: Present: protecting the airway Speech: Present: fluid speech Cranial nerves: EOM's Intact: Normal Motor strength exam: RUE: 5, LUE: 5, RLE: 5, LLE: 5 Eye Response: (4) open spontaneously Motor Response: (6) obeys commands Verbal Response: (5) oriented Psychiatric exam: Present: normal affect, normal mood Skin exam: Present: normal color Course Vital Signs 12/01/19 12/01/19 13:22 14:20 Temperature 97.8 F Pulse Rate 68 67 Respiratory 20 18 Rate Blood Pressure 173/93 154/80 O2 Sat by Pulse 99 100 Oximetry Medical Decision Making - Medical Decision Making Medication review revealed that nifedipine had just been ordered to restart today. Patient is given a dose. Blood pressure 154/80 prior to nifedipine. Patient states he feels great and is comfortable with discharge home. Disposition Clinical Impression: Hypertension Disposition: HOME SELF-CARE Condition: Stable Instructions (If sedation given, give patient instructions): Hypertension (ED) Additional Instructions: Please have prescription filled and start this tomorrow. Please follow-up with primary care physician in the next day or 2 for recheck. Return for uncontrolled blood pressure, headaches, weakness, confusion, worsening or changing symptoms or other concerns. Is patient prescribed a controlled substance at d/c from ED?: No Referrals: Raúl Abbott DO [Primary Care Provider] - 1-2 days Time of Disposition: 14:50
[2019-12-01] MEDS ORDERED: NIFEdipine XL 90 MG TAB.ER.24 PO STA (14:19)
[2019-12-01 14:22] VITALS: RESP 18
[2019-12-01 14:58] VITALS: BP 144/85; PULSE 78; TEMP 98
== END 2019-12-01 14:58 | disposition home or self-care (01) ==
LOC: EC 13:16
DX: I10 Essential (primary) hypertension (principal); R51 Headache; E11.9 Type 2 diabetes mellitus without complications; K21.9 Gastro-esophageal reflux disease without esophagitis; G40.909 Epilepsy, unspecified, not intractable, without status epilepticus; D50.9 Iron deficiency anemia, unspecified; Z79.84 Long term (current) use of oral hypoglycemic drugs; Z79.899 Other long term (current) drug therapy; Z87.891 Personal history of nicotine dependence; Z86.73 Personal history of transient ischemic attack (TIA), and cerebral infarction without residual deficits
CPT/HCPCS: 99283

== ENCOUNTER 2019-12-02 10:31 | Inpatient (IN) | payer MEDICARE, OTHER ==
--- NOTE | 2019-12-02 10:51 | ED ---
General Adult HPI - General Chief complaint: Neuro Symptoms/Deficit Stated complaint: Right leg weakness Time Seen by Provider: 12/02/19 10:40 Source: patient, old records reviewed Mode of arrival: wheelchair Limitations: no limitations - History of Present Illness Initial comments: Patient is a pleasant 63-year-old male presenting to the emergency Department with complaints of right leg weakness. Patient went to bed approximate 10 or 11 last night without problems. Patient states there was no significant headache at that point. Patient woke up this morning around 7 and has noticed that has leg has been dragging since that time. Patient states that is mild. Patient states he is able to walk. Patient states he does have history of previous stroke with similar leg problems. Patient denies any arm weakness. Patient denies any confusion or speech problems. Patient states his blood pressure has been up and down however was doing well last night and this morning. Patient states he does occasionally get headaches, headache today is severe. Headache was noticed when he woke up this morning. Headache is more right sided now. - Related Data Home Medications Medication Instructions Recorded Confirmed Labetalol HCl 200 mg PO Q8H 06/27/17 12/02/19 NIFEdipine [NIFEdipine ER] 90 mg PO DAILY 06/27/17 12/02/19 Lisinopril 40 mg PO DAILY 07/14/18 12/02/19 Loratadine [Claritin] 10 mg PO DAILY 07/14/18 12/02/19 Gabapentin [Neurontin] 400 mg PO TID 11/12/18 12/02/19 Ergocalciferol (Vitamin D2) 50,000 unit PO Q30D 04/03/19 12/02/19 [Vitamin D2] Ferrous Sulfate [Feosol] 325 mg PO DAILY 04/03/19 12/02/19 Calcitriol 0.25 mcg PO Q28D 07/23/19 12/02/19 Omeprazole 40 mg PO DAILY 07/23/19 12/02/19 metFORMIN HCL 1,000 mg PO BID 07/23/19 12/02/19 Previous Rx's Medication Instructions Recorded Lacosamide [Vimpat] 200 mg PO BID 3 Days #6 tab 06/06/19 Allergies Allergy/AdvReac Type Severity Reaction Status Date / Time No Known Allergies Allergy Verified 12/02/19 11:51 Review of Systems ROS Statement: Those systems with pertinent positive or pertinent negative responses have been documented in the HPI. ROS Other: All systems not noted in ROS Statement are negative. Constitutional: Denies: fever Eyes: Denies: eye pain ENT: Denies: ear pain Respiratory: Denies: cough Cardiovascular: Denies: chest pain Endocrine: Denies: fatigue Gastrointestinal: Denies: abdominal pain Genitourinary: Denies: dysuria Musculoskeletal: Denies: back pain Skin: Denies: rash Neurological: Reports: as per HPI, headache. Denies: confusion Past Medical History Past Medical History: Blood Disorder, CVA/TIA, Diabetes Mellitus, GERD/Reflux, Hyperlipidemia, Hypertension, Renal Disease, Seizure Disorder Additional Past Medical History / Comment(s): CVA 2017. LAST SEIZURE, UNKNOWN. iron deficiency anemia. History of Any Multi-Drug Resistant Organisms: None Reported Past Surgical History: Orthopedic Surgery Additional Past Surgical History / Comment(s): HX SURGERY KRISTIN FEET/ANKLES D/T INJURY. Past Anesthesia/Blood Transfusion Reactions: No Reported Reaction Past Psychological History: No Psychological Hx Reported Smoking Status: Former smoker Past Alcohol Use History: None Reported Past Drug Use History: None Reported - Past Family History Sister(s) Family Medical History: Cancer Mother Family Medical History: Cancer General Exam Limitations: no limitations General appearance: alert, in no apparent distress Head exam: Present: normocephalic Eye exam: Present: normal appearance, PERRL, EOMI ENT exam: Present: normal oropharynx Neck exam: Present: normal inspection Respiratory exam: Present: normal lung sounds bilaterally Cardiovascular Exam: Present: regular rate, normal rhythm GI/Abdominal exam: Present: soft. Absent: tenderness Extremities exam: Present: normal inspection Neurological exam: Present: alert, oriented X3, CN II-XII intact Expanded Neurological exam: Present: protecting the airway Patient oriented to: Present: person, place, time Speech: Present: fluid speech Cranial nerves: EOM's Intact: Normal, Facial Sensation: Normal Sensory exam: Upper Extremity Light Touch: Normal, Lower Extremity Light Touch: Normal (Patient states he feels both legs equally with touch however right leg feels slightly different, not less) Motor strength exam: RUE: 5, LUE: 5, RLE: 4 (Right leg does drift more the left leg), LLE: 4 (Left leg does not drift as much is the right leg.) Psychiatric exam: Present: normal affect, normal mood Skin exam: Present: normal color Course Vital Signs 12/02/19 12/02/19 12/02/19 10:35 10:50 11:05 Temperature 98.4 F Pulse Rate 74 75 77 Respiratory 18 16 16 Rate Blood Pressure 116/73 117/72 113/63 O2 Sat by Pulse 98 96 96 Oximetry 12/02/19 12:00 Temperature 98.1 F Pulse Rate 70 Respiratory 18 Rate Blood Pressure 120/73 O2 Sat by Pulse 99 Oximetry - Reevaluation(s) Reevaluation #1: 12/02/19 11:06 Case discussed in detail with Dr. Weisntein who agrees patient is not a TPA candidate. He does question if symptoms are related to seizures onset of CVA or TIA. He does recommend admission with neurology consult and EEG and aspirin. EKG Findings - EKG Comments: EKG Findings:: Sinus rhythm at 64. For screening AV block. NV 14. QT 384. QTC 396. Left axis. Normal QRS. Nonspecific T waves. Medical Decision Making - Medical Decision Making Patient reevaluated without significant change. Patient is updated on results and plan. Case was discussed in detail with Dr. Boogie, who will admit coming from Dr. Lance, who admits for Dr. Abbott. Patient states he is unclear why he does not take an aspirin. - Lab Data Result diagrams: 12/02/19 10:50 12/02/19 10:50 Lab Results 12/02/19 12/02/19 12/02/19 Range/Units 10:50 10:50 10:50 WBC 5.4 (3.8-10.6) k/uL RBC 4.27 L (4.30-5.90) m/uL Hgb 12.7 L (13.0-17.5) gm/dL Hct 37.7 L (39.0-53.0) % MCV 88.3 (80.0-100.0) fL MCH 29.7 (25.0-35.0) pg MCHC 33.7 (31.0-37.0) g/dL RDW 13.3 (11.5-15.5) % Plt Count 125 L (150-450) k/uL Neutrophils % 65 % Lymphocytes % 24 % Monocytes % 4 % Eosinophils % 4 % Basophils % 1 % Neutrophils # 3.5 (1.3-7.7) k/uL Lymphocytes # 1.3 (1.0-4.8) k/uL Monocytes # 0.2 (0-1.0) k/uL Eosinophils # 0.2 (0-0.7) k/uL Basophils # 0.0 (0-0.2) k/uL PT 10.0 (9.0-12.0) sec INR 1.0 (<1.2) APTT 23.6 (22.0-30.0) sec Sodium (137-145) mmol/L Potassium (3.5-5.1) mmol/L Chloride (98-107) mmol/L Carbon Dioxide (22-30) mmol/L Anion Gap mmol/L BUN (9-20) mg/dL Creatinine (0.66-1.25) mg/dL Est GFR (CKD-EPI)AfAm (>60 ml/min/1.73 sqM) Est GFR (CKD-EPI)NonAf (>60 ml/min/1.73 sqM) Glucose (74-99) mg/dL Calcium (8.4-10.2) mg/dL Total Bilirubin (0.2-1.3) mg/dL AST (17-59) U/L ALT (4-49) U/L Alkaline Phosphatase (38-126) U/L Total Creatine Kinase 108 (55-170) U/L CK-MB (CK-2) 1.8 (0.0-2.4) ng/mL CK-MB (CK-2) Rel Index 1.7 Troponin I <0.012 (0.000-0.034) ng/mL Total Protein (6.3-8.2) g/dL Albumin (3.5-5.0) g/dL Coronavirus (PCR) (Not Detectd) 12/02/19 12/02/19 Range/Units 10:50 11:15 WBC (3.8-10.6) k/uL RBC (4.30-5.90) m/uL Hgb (13.0-17.5) gm/dL Hct (39.0-53.0) % MCV (80.0-100.0) fL MCH (25.0-35.0) pg MCHC (31.0-37.0) g/dL RDW (11.5-15.5) % Plt Count (150-450) k/uL Neutrophils % % Lymphocytes % % Monocytes % % Eosinophils % % Basophils % % Neutrophils # (1.3-7.7) k/uL Lymphocytes # (1.0-4.8) k/uL Monocytes # (0-1.0) k/uL Eosinophils # (0-0.7) k/uL Basophils # (0-0.2) k/uL PT (9.0-12.0) sec INR (<1.2) APTT (22.0-30.0) sec Sodium 137 (137-145) mmol/L Potassium 4.1 (3.5-5.1) mmol/L Chloride 108 H (98-107) mmol/L Carbon Dioxide 24 (22-30) mmol/L Anion Gap 5 mmol/L BUN 15 (9-20) mg/dL Creatinine 1.06 (0.66-1.25) mg/dL Est GFR (CKD-EPI)AfAm 86 (>60 ml/min/1.73 sqM) Est GFR (CKD-EPI)NonAf 74 (>60 ml/min/1.73 sqM) Glucose 119 H (74-99) mg/dL Calcium 9.3 (8.4-10.2) mg/dL Total Bilirubin 0.5 (0.2-1.3) mg/dL AST 41 (17-59) U/L ALT 63 H (4-49) U/L Alkaline Phosphatase 58 (38-126) U/L Total Creatine Kinase (55-170) U/L CK-MB (CK-2) (0.0-2.4) ng/mL CK-MB (CK-2) Rel Index Troponin I (0.000-0.034) ng/mL Total Protein 7.5 (6.3-8.2) g/dL Albumin 4.3 (3.5-5.0) g/dL Coronavirus (PCR) Not Detected (Not Detectd) - Radiology Data Radiology results: report reviewed (CT angiogram of the head and neck shows less than 50% stenosis branch vessel of right MCA. 50% stenosis left proximal internal carotid artery.), image reviewed (Computed tomography scan of the brain reveals no acute intercranial abnormality. Old lacunar infarct. Diffuse age- related cerebral atrophy and chronic small vessel ischemia.) Disposition Clinical Impression: Transient cerebral ischemia Disposition: ADMITTED IP TO THIS HOSP Is patient prescribed a controlled substance at d/c from ED?: No Referrals: Raúl Abbott DO [Primary Care Provider] - 1-2 days Decision Time: 12:11
[2019-12-02 11:01] LABS: Basophils % (A) 1 %; Eosinophils # (A) 0.2 k/uL (0-0.7); Eosinophils % (A) 4 %; HCT 37.7 % (39.0-53.0); HGB 12.7 gm/dL (13.0-17.5); Lymphocytes # (A) 1.3 k/uL (1.0-4.8); Lymphocytes % (A) 24 %; MCH 29.7 pg (25.0-35.0); MCHC 33.7 g/dL (31.0-37.0); MCV 88.3 fL (80.0-100.0); Mean Platelet Volume 9.1; Monocytes # (A) 0.2 k/uL (0-1.0); Monocytes % (A) 4 %; Neutrophils # (A) 3.5 k/uL (1.3-7.7); Neutrophils % (A) 65 %; Platelet Count 125 k/uL (150-450); RBC 4.27 m/uL (4.30-5.90); RDW 13.3 % (11.5-15.5); WBC 5.4 k/uL (3.8-10.6)
[2019-12-02 11:09] LABS: Partial Thromboplastin Time 23.6 sec (22.0-30.0)
[2019-12-02 11:18] LABS: Albumin 4.3 g/dL (3.5-5.0); Calcium 9.3 mg/dL (8.4-10.2); Potassium 4.1 mmol/L (3.5-5.1); Total Bilirubin 0.5 mg/dL (0.2-1.3); Total Protein 7.5 g/dL (6.3-8.2)
--- NOTE | 2019-12-02 11:29 | CT ---
EXAMINATION TYPE: CT brain wo con for TPA DATE OF EXAM: 12/02/2019 COMPARISON: 08/25/2019 HISTORY: Neuro deficit, acute, stroke suspected CT DLP: 1092 mGycm Automated exposure control for dose reduction was used. TECHNIQUE: CT scan of the head is performed without contrast. FINDINGS: There is no acute intracranial hemorrhage or midline shift identified. There is diffuse v entricular and sulcal prominence consistent with diffuse age-related cerebral atrophy. There is low- attenuation in the periventricular white matter consistent with chronic small vessel ischemic change. Multifocal old lacunar injuries of the basal ganglia and thalami appear similar to the prior exam. L acunar injuries of the bilateral frontal lobes in the deep white matter are also redemonstrated. The globes are intact and the visualized sinuses are clear. IMPRESSION: No acute intracranial hemorrhage or midline shift. Old lacunar injuries. There is diff use age-related cerebral atrophy and chronic small vessel ischemic change noted.
--- NOTE | 2019-12-02 11:31 | XR ---
EXAMINATION TYPE: XR chest 2V DATE OF EXAM: 12/02/2019 COMPARISON: 07/23/2019 HISTORY: Weakness TECHNIQUE: Frontal and lateral views of the chest are obtained. FINDINGS: Hypoventilatory lungs. There is no focal air space opacity, pleural effusion, or pneumotho rax seen. The cardiac silhouette size is upper limits of normal size. The osseous structures are i ntact. Mild multilevel degenerative change of the spine. IMPRESSION: No acute cardiopulmonary process.
[2019-12-02 11:39] LABS: Creatine Kinase 108 U/L (55-170)
[2019-12-02 11:52] LABS: Creatine Kinase MB 1.8 ng/mL (0.0-2.4); Troponin I <0.012 ng/mL (0.000-0.034)
--- NOTE | 2019-12-02 12:03 | CT ---
EXAMINATION TYPE: CT angio head neck DATE OF EXAM: 12/02/2019 HISTORY: Neuro deficit, acute, stroke suspected COMPARISON: NONE CT DLP: 715 mGycm. Automated Exposure Control for Dose Reduction was Utilized. TECHNIQUE: CTA scan of the neck is performed with IV Contrast, patient injected with 65 mL of Isovue 370, axial images are obtained, coronal and sagittal reformatted images are reviewed. Three-D recons tructed images are created on an independent workstation and reviewed. FINDINGS: Carotid/Vascular Structures: There is a three-vessel conventional branch pattern of the aortic arch. The bilateral common carotid arteries are patent without hemodynamically significant stenosis. There is mild calcific atheromatous plaquing of the right carotid bulb that is not hemodynamically signific ant. This extends into the proximal right internal carotid artery but again is less than 50% of the l umen caliber. The left carotid bulb is unremarkable. In the proximal left carotid artery there is a s hort segment of approximately 50% stenosis located 6 mm distal to the carotid bulb and extending in m aximum distance of 7 mm. The remaining cervical portions of the internal carotid arteries are patent and unremarkable. The lef t vertebral artery is dominant. Both vertebral arteries appear patent. There is mild stenosis of less than 50% measuring approximately 1 cm in length of the a branch vessel of the right middle cerebral artery in comparison to this arteries more distal caliber. No sizable intracranial aneurysm seen. Other: Thyroid gland appears enlarged but grossly homogeneous on CT. Parotid glands and submandibular glands are unremarkable. Scattered nonenlarged physiologic lymph nodes are seen of the neck. On the right there is again upper limits of normal size lymph node due to the parotid gland measuring 1 cm i n short axis. Airway appears patent. Scattered areas of atelectasis are seen within the lung apices. Moderate multilevel degenerative change of the cervical spine and straightening of usual cervical ve dosis that may be positional. Visualized portions of the brain are discussed on the brain CT dictatio n of the same date. IMPRESSION: 1. Stenosis of less than 50% of the branch vessel of the right MCA. Correlate with clinical symptoms. 2. Stenosis of approximately 50% of the left proximal internal carotid artery measuring a maximum tot al distance of 7 mm.
[2019-12-02] MEDS ORDERED: diphenhydrAMINE 50 MG/ML 1 ML VIAL IVP STA (12:11)
[2019-12-02] MEDS ORDERED: METOCLOPRAMIDE 5 MG/ML 2 ML VIAL IVP STA (12:11)
[2019-12-02] MEDS ORDERED: ASPIRIN 325 MG TAB PO STA (12:12)
[2019-12-02] MEDS: SODIUM CHLORIDE 0.9% 1,000 ML IV SCH (12:21)
[2019-12-02 15:11] LABS: Glucose,Whole Blood 86 mg/dL (75-99)
[2019-12-02] MEDS: HEPARIN SODIUM,PORCINE 5,000 UNIT/ML 1 ML VIAL SQ SCH (16:01)
[2019-12-02] MEDS: INSULIN ASPART (NovoLOG) 100 UNIT/ML VIAL SQ SCH ×2 (17:15→20:35)
[2019-12-02] MEDS: ACETAMINOPHEN TAB 500 MG TAB PO PRN ×2 (17:47→23:59)
[2019-12-02] MEDS: LACOSAMIDE 50 MG TABLET PO SCH (20:06)
[2019-12-02 20:24] LABS: Glucose,Whole Blood 115 mg/dL (75-99)
--- NOTE | 2019-12-02 23:30 | P.HPIM ---
History of Present Illness H&P Date: 12/02/19 Chief Complaint: Right lower extremity weakness Patient is a 63-year-old male with a known history of CVA in 2017 without residual weakness, history of TIA, hypertension, diabetes type 2 [id number], hyperlipidemia, seizure disorder and other medical problems came to ER with complaints of right lower extremity weakness. Patient says that he has been having elevated blood pressures for the last 2-3 days and was seen in the ER. Patient went home with improvement in blood pressure. Patient says that he went to bed approximately around 11 PM last night without problems. Patient woke up this morning around 7 and was noticed to have his right leg has been dragging since then. Patient also says that his blood pressure is elevated. Patient was able to walk without support. Patient says that he does have history of previous stroke with similar leg problems. Denied any upper activity weakness. No complaints of facial droop on difficulty and speech. Denied any trouble finding words. Patient says that she did have headache this morning which is severe than his normal headaches which made him woke up from sleep. Denied any headache at this time. No complaints of chest pain or shortness of breath. No fever no chills. No cough or sputum production. No leg swelling. No nausea vomiting or diarrhea. Denied any recent illnesses. EKG showed sinus rhythm with first-degree AV block. Chest x-ray showed no acute cardiopulmonary process. CT head showed no acute intracranial hemorrhage or midline shift. Old lacunar infarcts. There is diffuse is related cerebral atrophy and chronic small is a ischemic changes. CT angiogram of the head and neck showed stenosis of less than 50% of the branch of the right MCA. Stenosis of around 50% of the left proximal internal carotid artery. laboratory data reviewed. Review of Systems Constitutional: Patient denies any fever or chills . No generalized weakness or weight loss. Abdomen: Patient denied nausea vomiting and diarrhea and abdominal pain. Cardiovascular: Patient denies any chest pain or short of breath no palpitations. Respiratory: patient denied any cough is from production. No shortness of breath Neurologic: Patient denied any numbness or tingling . Patient does have headache. Right leg weakness. Musculoskeletal: Patient denies any complaints of joint swelling or deformity. Skin: Negative Psychiatric: Negative Endocrine: No heat or cold intolerance. No recent weight gain. Genitourinary: No dysuria or hematuria. All other 14 point ROS negative except the above Past Medical History Past Medical History: Blood Disorder, CVA/TIA, Diabetes Mellitus, GERD/Reflux, Hyperlipidemia, Hypertension, Renal Disease, Seizure Disorder Additional Past Medical History / Comment(s): CVA 2017. LAST SEIZURE, UNKNOWN. iron deficiency anemia. History of Any Multi-Drug Resistant Organisms: None Reported Past Surgical History: Orthopedic Surgery Additional Past Surgical History / Comment(s): HX SURGERY KRISTIN FEET/ANKLES R/T INJURY. Past Anesthesia/Blood Transfusion Reactions: No Reported Reaction Past Psychological History: No Psychological Hx Reported Smoking Status: Never smoker Past Alcohol Use History: None Reported Past Drug Use History: None Reported - Past Family History Sister(s) Family Medical History: Cancer Mother Family Medical History: Cancer Medications and Allergies Home Medications Medication Instructions Recorded Confirmed Type Labetalol HCl 200 mg PO Q8H 06/27/17 12/02/19 History NIFEdipine [NIFEdipine ER] 90 mg PO DAILY 06/27/17 12/02/19 History Lisinopril 40 mg PO DAILY 07/14/18 12/02/19 History Loratadine [Claritin] 10 mg PO DAILY 07/14/18 12/02/19 History Gabapentin [Neurontin] 400 mg PO TID 11/12/18 12/02/19 History Ergocalciferol (Vitamin D2) 50,000 unit PO Q30D 04/03/19 12/02/19 History [Vitamin D2] Ferrous Sulfate [Feosol] 325 mg PO DAILY 04/03/19 12/02/19 History Lacosamide [Vimpat] 200 mg PO BID 3 Days #6 tab 06/06/19 12/02/19 Rx Calcitriol 0.25 mcg PO Q28D 07/23/19 12/02/19 History Omeprazole 40 mg PO DAILY 07/23/19 12/02/19 History metFORMIN HCL 1,000 mg PO BID 07/23/19 12/02/19 History Allergies Allergy/AdvReac Type Severity Reaction Status Date / Time No Known Allergies Allergy Verified 12/02/19 11:51 Physical Exam Vitals: Vital Signs Temp Pulse Pulse Resp BP BP Pulse Ox 12/02/19 17:13 98.0 F 70 16 123/70 12/02/19 14:43 97.8 F 67 16 123/74 97 12/02/19 14:00 97.9 F 86 20 137/90 99 12/02/19 13:00 64 18 130/86 99 12/02/19 12:00 98.1 F 70 18 120/73 99 12/02/19 11:05 77 16 113/63 96 12/02/19 10:50 75 16 117/72 96 12/02/19 10:35 98.4 F 74 18 116/73 98 Intake and Output 12/02/19 12/02/19 12/02/19 06:59 14:59 22:59 Intake Total 240 Balance 240 Intake: Oral 240 Other: Weight 110.586 kg PHYSICAL EXAMINATION: Patient is lying in the bed comfortably, no acute distress, awake alert and oriented.. HEENT: Normocephalic. Neck is supple. Pupils reactive. Nostrils clear. Oral cavity is moist. Ears reveal no drainage. Neck reveals no JVD, carotid bruits, or thyromegaly. CHEST EXAMINATION: Trachea is central. Symmetrical expansion. Lung gabriel clear to auscultation and percussion. CARDIAC: Normal S1, S2 with no gallops. No murmurs ABDOMEN: Soft. Bowel sounds normal. No organomegaly. No abdominal bruits. Extremities: reveal no edema. No clubbing or cyanosis Neurologically awake, alert, oriented x3 with well-coordinated movements. Right lower activity muscle strength 3 out of 5 Skin: No rash or skin lesions. Psychiatric: Coperative. Nonsuicidal Musculoskeletal: No joint swelling or deformity. Normal range of motion. Results CBC & Chem 7: 12/02/19 10:50 12/02/19 10:50 Labs: Abnormal Lab Results - Last 24 Hours (Table) 12/02/19 12/02/19 12/02/19 Range/Units 10:50 10:50 20:19 RBC 4.27 L (4.30-5.90) m/uL Hgb 12.7 L (13.0-17.5) gm/dL Hct 37.7 L (39.0-53.0) % Plt Count 125 L (150-450) k/uL Chloride 108 H (98-107) mmol/L Glucose 119 H (74-99) mg/dL POC Glucose (mg/dL) 115 H (75-99) mg/dL ALT 63 H (4-49) U/L Thrombosis Risk Factor Assmnt - DVT/VTE Prophylaxis DVT/VTE Prophylaxis: Pharmacologic Prophylaxis ordered - Choose All That Apply Each Risk Factor Represents 2 Points: Age 61-74 years Thrombosis Risk Factor Assessment Total Risk Factor Score: 2 Thrombosis Risk Factor Assessment Level: Low Risk Assessment and Plan Assessment: Acute CVA with right lower extremity weakness. CT head showed no acute process. CT angiogram showed no significant stenosis. Previous history of CVA in 2017 and history of TIAs Uncontrolled hypertension. currently controlled Diabetes type 2 [id number] Hyperlipidemia History of seizure disorder Morbid obesity BMI 37.1 DVT prophylaxis with heparin subcu Plan: Patient will be converted on telemetry monitoring. Continue with stroke workup. TSH, B12, folate, A1c levels was ordered. Neurology was consulted. Continue to follow closely and can with home medications. We will hold blood pressure medications at this time as the blood pressure is not elevated and also permissive hypertension. Further recommendations based on the clinical course. Time with Patient: Greater than 30
[2019-12-03] MEDS: HEPARIN SODIUM,PORCINE 5,000 UNIT/ML 1 ML VIAL SQ SCH ×3 (00:22→15:14)
[2019-12-03] MEDS: SODIUM CHLORIDE 0.9% 1,000 ML IV SCH ×2 (00:23→12:55)
--- NOTE | 2019-12-03 01:00 | CONS ---
CONSULTATION NEUROLOGY CONSULT NOTE: DATE OF SERVICE: 12/02/2019. HISTORY: This is a new neurology consult requested for further advice and recommendations for a 63-year-old right-handed male who presents to the emergency room with ongoing headache and acute onset of right lower extremity weakness. The initial consult was requested by the emergency room. The history provided by the emergency doctor is as follows: The night before admission the patient had come to the emergency room complaining of headache. He has a history of hypertension, and prior history of stroke. The patient's blood pressure was stabilized and he was discharged home then he returned again today with complaints of difficulty using his right leg and headache upon awakening. He reports that the right foot appeared to drop when he awakened this morning. He also reports that his headache was quite severe this morning upon awakening. Mr. Roberts's past medical history is significant for multiple stroke risk factors which include hypertension and noninsulin dependent diabetes. He reports that he had a stroke 2 years ago at which time left him with deficits that involved hyperacusis. Soon after hiss stroke, he reportedly was diagnosed with seizures at [facility]. He reports that he has been on the medication Vimpat now at 200 mg twice daily. He was diagnosed with seizures after an event where he was found unresponsive with no recollection. This involved somewhat of a prolonged amnestic period. He was initially managed at [facility], then transferred to [facility] and then underwent a comprehensive epilepsy evaluation at [facility]. It was at [facility] that he says he was undergoing prolonged EEG monitoring and was given a diagnosis of seizures. He is currently followed by an outpatient neurologist. The patient reports that he is not aware of any low back pain and has never had any difficulty with his gait or lower extremities. Since his admission, he has had normal blood pressure readings ranging between 116/73, 117/72, and 113/63. He has been afebrile and his EKG shows normal sinus rhythm. PAST MEDICAL HISTORY: Past medical history is as described earlier. FAMILY HISTORY: Noncontributory. SOCIAL HISTORY: Patient works full-time as a security systems manager for 2 jobs. He is very active despite having had a stroke and history of seizures. He does not smoke, drink alcohol or use illicit drugs. He has not traveled out of the country in the past 6 months and has not been around any known sick contacts. REVIEW OF SYSTEMS: A 10-point review of systems was obtained with positive pertinent and negatives related to the history of present illness. In addition to the review of systems, he does report poor sleep continuity and excessive daytime sleepiness. He reports that he has been known in his family as a loud snorer and has occasionally awakened himself up from snoring. All symptoms suspicious for sleep-disordered breathing. GENERAL PHYSICAL EXAM: VITAL SIGNS: Stable, afebrile. APPEARANCE: Obese, no acute distress. HEENT: Head atraumatic. Clear sclerae. Oropharynx is clear. Broad-based tongue. Mallampati grade 3. NECK: Supple. No cervical lymphadenopathy or thyromegaly noted. PULSES: Radial and pedal pulses are equal and symmetric. EXTREMITIES: No edema noted in the hands or feet. SKIN: No rash or bruising or petechia noted. NEUROLOGIC EXAM: Mental status: Awake, alert, oriented x3. Good historian. Speech is fluent. Affect appropriate. Visual field testing: Intact to finger counting in all 4 quadrants in both eye gabriel. Pupils 2 mm, equally reactive to light and accommodation. Cranial nerves: Cranial nerves 3 through 12 are intact. Motor examination: Mild proximal weakness is noted in the right shoulder. Otherwise, 5/5 strength in the upper extremities. Lower extremity testing, there is mild proximal weakness noted in the right leg at the hip flexor. Otherwise gastroc, anterior tibialis appear 5/5. There is some weakness noted on foot flexion and extension on the right. Strength is 5/5 in the left lower extremity. No fasciculations or tremor noted. Pronator drift is negative. Coordination testing: Intact gmyguj-jf-rsgr testing with eyes open and eyes closed. Pjeq-xq-kriu maneuvers intact. Foot tapping is intact. No dysmetria noted. Sensory examination: Grossly intact to light touch and pinprick throughout. Romberg is negative. Deep tendon reflexes are +2 over the biceps, triceps, brachioradialis. The patellar reflexes are trace bilaterally. Ankle jerk is trace on the right, +1 on the left. Plantar response is flexor bilaterally. No ankle clonus is elicited. Gait examination: Patient is able to transition from sitting to standing without assistance. He has notable foot drop on the left. No pain elicited. Back examination: No point tenderness or paraspinal muscle tenderness noted. There is significant lordosis at the lumbar sacral level noted. ASSESSMENT: This is a 63-year-old gentleman who has a known history for diabetes type 2, hypertension and a prior stroke and is currently on Vimpat monotherapy for seizure disorder. The patient has been having difficulty with headaches and most recently on this admission presented with a right footdrop. The current CT scan of the head did not show any evidence of an acute ischemic infarct or any remote infarct. Based on this patient's history, he should undergo further workup for stroke to include an MRI of the brain. I would also recommend an MRI of his lumbar sacral spine as the weakness on examination clinically appears as a L5-S1 radiculopathy with footdrop. Also in the differential DX , Yuriy's paralysis can be a stroke=like minic ( associated with a seizure ). Therefore, EEG would be helpful to establish if there is any abnormal electrical activity. RECOMMENDATIONS: 1. MRI of the brain without contrast. 2. MRI of the lumbar sacral spine without contrast. 3. EEG in a.m. 4. Vimpat level. 5. Physical therapy consult. 6. Transthoracic echo. 7. Continue with current home medications and add enteric-coated aspirin 81 mg in a.m. 8. MRA of the head and neck to rule out possible high-grade stenosis, large vessel occlusion and/or aneurysm. 9. A.m. labs to include lipid panel, TSH and T4. 10.Headache management: Tylenol Extra Strength 2 tablets every 6 to 8 hours p.r.n. headache pain. 11.Nursing: Neuro checks q.4 hours while awake. 12.Blood pressure management. Continue to maintain patient at normotensive level. Maintain patient in normal glycemic status. 13.Diet: Diabetic diet with low salt. Thank you for this consultation. This patient's prognosis remains good. Further recommendations will be made as this case evolves. MMODL / IJN: [id number] / RHONDA
[2019-12-03] MEDS: LABETALOL 200 MG TAB PO SCH ×3 (01:03→15:15)
[2019-12-03] MEDS: GABAPENTIN 400 MG CAP PO SCH ×4 (01:04→22:42)
[2019-12-03 06:22] LABS: Glucose,Whole Blood 95 mg/dL (75-99)
[2019-12-03] MEDS: INSULIN ASPART (NovoLOG) 100 UNIT/ML VIAL SQ SCH ×4 (06:24→21:27)
[2019-12-03] MEDS: ACETAMINOPHEN TAB 500 MG TAB PO PRN ×3 (06:25→21:20)
--- NOTE | 2019-12-03 08:22 | US ---
EXAMINATION TYPE: US carotid duplex BILAT DATE OF EXAM: 12/03/2019 COMPARISON: CTA neck one day earlier CLINICAL HISTORY: R/O CVA. Acute onset neuro deficit on admission 1 day earlier. EXAM MEASUREMENTS: RIGHT: Peak Systolic Velocity (PSV) cm/sec ----- Right CCA: 71.1 ----- Right ICA: 62.4 ----- Right ECA: 49.5 ICA/CCA ratio: 0.9 RIGHT: End Diastole cm/sec ----- Right CCA: 12.8 ----- Right ICA: 9.3 ----- Right ECA: 7.8 LEFT: Peak Systolic Velocity (PSV) cm/sec ----- Left CCA: 55.9 ----- Left ICA: 99.6 ----- Left ECA: 64.8 ICA/CCA ratio: 1.8 LEFT: End Diastole cm/sec ----- Left CCA: 11.0 ----- Left ICA: 29.3 ----- Left ECA: 9.0 VERTEBRALS (direction of flow): Right Vertebral: Antegrade Left Vertebral: Antegrade Rhythm: Normal El scale images show mild to moderate plaque bilateral carotid bulb level. Velocity measurements an d ratios remain within normal limits bilaterally. IMPRESSION: Mild to moderate atherosclerotic changes bilaterally without hemodynamically significant stenosis seen in either internal carotid artery. Findings correlate with CTA study one day earlier . Criteria for Assigning % of Stenosis / Diameter reduction (Estimation based on the indirect measurements of the internal carotid artery velocities (ICA PSV). 1. Normal (no stenosis)=ICA PSV < 125 cm/s: ratio < 2.0: ICA EDV<40 cm/s. 2. Less than 50% stenosis=ICA PSV < 125 cm/s: ratio < 2.0: ICA EDV<40 cm/s. 3. 50 to 69% stenosis=ICA PSV of 125 to 230 cm/s: ration 2.0 ? 4.0: ICA EDV 40-100 cm/s. 4. Greater than 70% stenosis to near occlusion= ICA PSV > 230 cm/s: ratio > 4.0: ICA EDV > 100 cm/s. 5. Near occlusion= ICA PSV velocities may be low or undetectable: variable ratio and ICA EDV. 6. Total occlusion=unable to detect flow.
[2019-12-03] MEDS: LACOSAMIDE 50 MG TABLET PO SCH ×2 (08:31→21:22)
[2019-12-03] MEDS: PANTOPRAZOLE 40 MG TABLET PO SCH (08:31)
[2019-12-03] MEDS: LORATADINE 10 MG TAB PO SCH (08:31)
[2019-12-03] MEDS: LISINOPRIL 20 MG TAB PO SCH (08:32)
[2019-12-03] MEDS: FERROUS SULFATE 325 MG TAB PO SCH (08:32)
[2019-12-03] MEDS: NIFEdipine XL 90 MG TAB.ER.24 PO SCH (08:32)
[2019-12-03] MEDS: ASPIRIN 325 MG TAB PO SCH (08:32)
[2019-12-03] MEDS: metFORMIN 500 MG TAB PO SCH ×2 (10:04→21:21)
[2019-12-03 11:27] LABS: Glucose,Whole Blood 130 mg/dL (75-99)
--- NOTE | 2019-12-03 11:49 | ECHOF ---
Referral Reason:Thrombus MEASUREMENTS -------- HEIGHT: 172.7 cm WEIGHT: 108.9 kg BP: 143/78 RVIDd: 4.6 cm (< 3.3) IVSd: 1.7 cm (0.6 - 1.1) LVIDd: 3.5 cm (3.9 - 5.3) LVPWd: 1.8 cm (0.6 - 1.1) IVSs: 2.0 cm LVIDs: 2.0 cm LVPWs: 2.2 cm LAESV Index (A-L): 26.54 ml/m Ao Diam: 3.7 cm (2.0 - 3.7) AV Cusp: 2.3 cm (1.5 - 2.6) MV EXCURSION: 15.228 mm (> 18.000) MV EF SLOPE: 39 mm/s (70 - 150) EPSS: 0.3 cm MV E Low: 0.67 m/s MV DecT: 281 ms MV A Low: 0.76 m/s MV E/A Ratio: 0.88 RAP: 5.00 mmHg RVSP: 10.98 mmHg FINDINGS -------- Sinus rhythm. This was a technically adequate study. The left ventricular size is normal. There is severe concentric left ventricular hypertrophy. The re is normal global left ventricular contractility. Overall left ventricular systolic function is n ormal with, an EF between 60 - 65 %. The diastolic filling pattern is normal for the age of the pat ient 12.86. The right ventricle is moderately enlarged. Normal LA size by volume 22+/-6 ml/m2. The right atrium is mildly enlarged. Interatrial and interventricular septum intact. The aortic valve was not well visualized. There is no evidence of aortic regurgitation. There is no evidence of aortic stenosis. No mitral regurgitation. Trace tricuspid regurgitation present. There is no evidence of pulmonary hypertension. The right ventricular systolic pressure, as measured by Doppler, is 10.98mmHg. There is no pulmonic regurgitation present. The aortic root size is normal. IVC Not well visulized. There is no pericardial effusion. CONCLUSIONS -------- 1. Sinus rhythm. 2. This was a technically adequate study. 3. The left ventricular size is normal. 4. There is severe concentric left ventricular hypertrophy. 5. There is normal global left ventricular contractility. 6. Overall left ventricular systolic function is normal with, an EF between 60 - 65 %. 7. The diastolic filling pattern is normal for the age of the patient 12.86 8. The right ventricle is moderately enlarged. 9. Normal LA size by volume 22+/-6 ml/m2. 10. The right atrium is mildly enlarged. 11. Interatrial and interventricular septum intact. 12. The aortic valve was not well visualized. 13. There is no evidence of aortic regurgitation. 14. There is no evidence of aortic stenosis. 15. No mitral regurgitation. 16. Trace tricuspid regurgitation present. 17. There is no evidence of pulmonary hypertension. 18. The right ventricular systolic pressure, as measured by Doppler, is 10.98mmHg. 19. There is no pulmonic regurgitation present. 20. The aortic root size is normal. 21. IVC Not well visulized. 22. There is no pericardial effusion. PROCESS IMPROVEMENT SPECIALIST: Jayleen Tucker RDCS
[2019-12-03 15:03] LABS: Hemoglobin A1C 6.8 % (4.0-6.0)
[2019-12-03 16:44] LABS: Glucose,Whole Blood 88 mg/dL (75-99)
[2019-12-03] MEDS ORDERED: LORazepam 2 MG/ML INJ IV ONE (18:21)
[2019-12-03 21:13] LABS: Glucose,Whole Blood 106 mg/dL (75-99)
[2019-12-03] MEDS ORDERED: CYANOCOBALAMIN 1,000 MCG/ML 1 ML VIAL IM ONE (22:43)
[2019-12-03] MEDS ORDERED: DOCUSATE 100 MG CAP PO PRN (22:46)
--- NOTE | 2019-12-03 22:51 | P.PN ---
Subjective Progress Note Date: 12/03/19 Principal diagnosis: Acute CVA with right leg weakness. Patient is a 63-year-old male with a known history of CVA in 2017 without residual weakness, history of TIA, hypertension, diabetes type 2 qxd-ixhxlib-qhwvzapzh, hyperlipidemia, seizure disorder and other medical problems came to ER with complaints of right lower extremity weakness. Patient says that he has been having elevated blood pressures for the last 2-3 days and was seen in the ER. Patient went home with improvement in blood pressure. Patient says that he went to bed approximately around 11 PM last night without problems. Patient woke up this morning around 7 and was noticed to have his right leg has been dragging since then. Patient also says that his blood pressure is elevated. Patient was able to walk without support. Patient says that he does have history of previous stroke with similar leg problems. Denied any upper activity weakness. No complaints of facial droop on difficulty and speech. Denied any trouble finding words. Patient says that she did have headache this morning which is severe than his normal headaches which made him woke up from sleep. Denied any headache at this time. No complaints of chest pain or shortness of breath. No fever no chills. No cough or sputum production. No leg swelling. No nausea vomiting or diarrhea. Denied any recent illnesses. EKG showed sinus rhythm with first-degree AV block. Chest x-ray showed no acute cardiopulmonary process. CT head showed no acute intracranial hemorrhage or midline shift. Old lacunar infarcts. There is diffuse is related cerebral atrophy and chronic small is a ischemic changes. CT angiogram of the head and neck showed stenosis of less than 50% of the branch of the right MCA. Stenosis of around 50% of the left proximal internal carotid artery. laboratory data reviewed. 12/03/2019 Patient is currently awake alert and oriented 3. Still having right lower activity weakness and dragging while walking. Denied any complaints of pain. Carotid duplex showed no significant hemodynamically stenosis noted. 2-D echocardiogram was done. Patient underwent MRI of the brain report is pending at this time. Otherwise patient is found to have low B12 level at 147. Started on IM B12 injections and oral dose. Neurology is on board. A1c was 6.8. Blood pressure is controlled at this time. LDL 119 Patient is tolerating oral diet. Current medications reviewed. Objective - Vital Signs Vital signs: Vital Signs Temp 97.9 F 12/03/19 15:13 Pulse 74 12/03/19 15:13 Resp 16 12/03/19 15:13 BP 138/79 12/03/19 15:13 Pulse Ox 99 12/03/19 15:13 Intake & Output 12/03/19 12/03/19 12/04/19 06:59 18:59 06:59 Intake Total 1336 Output Total 1300 Balance -1300 1336 Weight 109.2 kg Intake: IV 400 Sodium Chloride 0.9% 1, 400 000 ml @ 100 mls/hr IV . Q10H SIDDHARTH Rx#:[id number] Oral 936 Output: Urine 1300 Other: # Voids 1 - Exam PHYSICAL EXAMINATION: Patient is lying in the bed comfortably, no acute distress, awake alert and oriented.. HEENT: Normocephalic. Neck is supple. Pupils reactive. Nostrils clear. Oral cavity is moist. Ears reveal no drainage. Neck reveals no JVD, carotid bruits, or thyromegaly. CHEST EXAMINATION: Trachea is central. Symmetrical expansion. Lung gabriel clear to auscultation and percussion. CARDIAC: Normal S1, S2 with no gallops. No murmurs ABDOMEN: Soft. Bowel sounds normal. No organomegaly. No abdominal bruits. Extremities: reveal no edema. No clubbing or cyanosis Neurologically awake, alert, oriented x3 with well-coordinated movements. Right lower activity muscle strength 3 out of 5 Skin: No rash or skin lesions. Psychiatric: Coperative. Nonsuicidal Musculoskeletal: No joint swelling or deformity. Normal range of motion. - Labs CBC & Chem 7: 12/02/19 10:50 12/02/19 10:50 Labs: Abnormal Lab Results - Last 24 Hours (Table) 12/03/19 12/03/19 12/03/19 Range/Units 05:21 05:21 11:25 POC Glucose (mg/dL) 130 H (75-99) mg/dL Hemoglobin A1c 6.8 H (4.0-6.0) % LDL Cholesterol, Calc 119 H (0-99) mg/dL Vitamin B12 147.0 L (200.0-944.0) pg/mL 12/03/19 Range/Units 21:12 POC Glucose (mg/dL) 106 H (75-99) mg/dL Hemoglobin A1c (4.0-6.0) % LDL Cholesterol, Calc (0-99) mg/dL Vitamin B12 (200.0-944.0) pg/mL Assessment and Plan Assessment: Acute CVA with right lower extremity weakness. CT head showed no acute process. CT angiogram showed no significant stenosis. MRI report pending. Vitamin B12 deficiency Previous history of CVA in 2017 and history of TIAs Uncontrolled hypertension. currently controlled Diabetes type 2 twj-ptkbtiq-zdmupnasx. A1c 6.8 Hyperlipidemia with LDL 119 History of seizure disorder Morbid obesity BMI 37.1 DVT prophylaxis with heparin subcu Plan: Patient will be converted on telemetry monitoring. Continue with stroke workup. TSH, B12, folate, A1c levels was done. Neurology is following. MRI of the brain was ordered.. Continue to follow closely and can with home medications. Blood pressure medications will be restarted and titrated as needed. PTOT consult Further recommendations based on the clinical course. Time with Patient: Greater than 30
[2019-12-04] MEDS: MELATONIN 1 MG TAB PO SCH (00:57)
--- NOTE | 2019-12-04 00:59 | PN ---
PROGRESS NOTE NEUROLOGY PROGRESS NOTE: DATE OF SERVICE: December 03, 2019 SUBJECTIVE: The patient has remained hemodynamically stable throughout the day. The patient is reporting headache now on pain scale of 3 to 4. He still reports the right foot feels weak and drags when he attempts to walk. Patient did not want to proceed with the MRI of the brain and MRI of his lumbar sacral spine today due to his fear of not being able to be sedated enough. We discussed this further and he understands that he will receive Ativan enough to help him sleep through the procedure. He expresses concerns and I acknowledged them. REVIEW OF SYSTEMS: The patient has no other new concerns. He denies having any vision change, difficulty swallowing, hearing difficulty. He denies any new sensory, motor symptoms. OBJECTIVE: Labs reviewed. Echo shows severe concentric left ventricular hypertrophy. Ejection fraction is 60% to 65% with moderately enlarged ventricles. Carotid ultrasound shows evidence of ynqy-kz-jyczsbzi atherosclerotic changes bilaterally without high-grade stenosis. This correlated with his earlier CT angio of the neck study. NEUROLOGIC EXAM: The patient is awake, alert, oriented x3. Speech fluent. Affect appropriate. Cranial nerves: Cranial nerves 3 through 12 appear intact. Motor examination: Patient is moving all 4 extremities equally. Sensory, coordination and deep tendon reflexes exam: Deferred. ASSESSMENT AND RECOMMENDATION: This is a 63-year-old gentleman with a known history for epilepsy, history of stroke 2 years ago, who presented to the emergency room twice and then admitted after having increasing headaches. On the day of admission he now reported an acute onset of right foot weakness. The CT of the head did not show any evidence of acute ischemic infarct. We are currently awaiting to have an MRI of the brain & MRI of the lumbar sacral spine. On his exam yesterday, there was evidence that this could be a low motor neuron lesion involving the right foot involving a radiculopathy. However, he has no history of back pain or trauma, but clinically the patient did appear to drag the foot. This did not occur in a circumvent form of gait that one would see with a proximal lesion. PLAN: 1. Proceed with MRI of the brain without contrast and MRI of the lumbar sacral spine wo contrast The patient may receive initially 1 mg of Ativan IV for sedation. If he does not have a good response, can increase to an additional 0.5 to 1 mg. Neurology and hospitalist need to be notified if additional dosing is required. 2. Continue with aspirin and statin daily. 3. Continue with home medications for managing hypertension. 4. Neuro checks can be reduced to q.4 hours while awake. This patient's prognosis remains favorable. We will plan for anticipated discharge within the next 48 hours pending MRI of the brain and MRI of the lumbar sacral spine. PT should continue to work with the patient daily. Appreciate their input & recommendations. Patient's PX remains good, anticipate discharge to out-patient PT if MRI brain unremarkable and MRI of the LS unremarkable. Charleen Lopes MD Board Certified in Neurology & Sleep Medicine MMODL / MATEON: [id number] / MTDD
[2019-12-04] MEDS: ATORVASTATIN 20 MG TAB PO SCH ×2 (01:06→20:40)
[2019-12-04 06:12] LABS: Glucose,Whole Blood 92 mg/dL (75-99)
[2019-12-04] MEDS: INSULIN ASPART (NovoLOG) 100 UNIT/ML VIAL SQ SCH ×4 (06:50→21:54)
[2019-12-04 07:46] LABS: Basophils % (A) 1 %; Eosinophils # (A) 0.2 k/uL (0-0.7); Eosinophils % (A) 4 %; HCT 38.4 % (39.0-53.0); HGB 12.7 gm/dL (13.0-17.5); Lymphocytes # (A) 1.7 k/uL (1.0-4.8); Lymphocytes % (A) 29 %; MCH 30.3 pg (25.0-35.0); MCHC 33.1 g/dL (31.0-37.0); MCV 91.5 fL (80.0-100.0); Mean Platelet Volume 9.3; Monocytes # (A) 0.4 k/uL (0-1.0); Monocytes % (A) 7 %; Neutrophils # (A) 3.4 k/uL (1.3-7.7); Neutrophils % (A) 58 %; Platelet Count 138 k/uL (150-450); RDW 13.3 % (11.5-15.5); WBC 5.9 k/uL (3.8-10.6)
[2019-12-04 07:56] LABS: Calcium 9.9 mg/dL (8.4-10.2)
[2019-12-04] MEDS: HEPARIN SODIUM,PORCINE 5,000 UNIT/ML 1 ML VIAL SQ SCH ×3 (10:19→17:41)
[2019-12-04] MEDS: CYANOCOBALAMIN 500 MCG TAB PO SCH (10:19)
[2019-12-04] MEDS: ASPIRIN 325 MG TAB PO SCH (10:20)
[2019-12-04] MEDS: GABAPENTIN 400 MG CAP PO SCH ×3 (10:20→20:40)
[2019-12-04] MEDS: metFORMIN 500 MG TAB PO SCH ×2 (10:20→20:40)
[2019-12-04] MEDS: LORATADINE 10 MG TAB PO SCH (10:20)
[2019-12-04] MEDS: FERROUS SULFATE 325 MG TAB PO SCH (10:20)
[2019-12-04] MEDS: NIFEdipine XL 90 MG TAB.ER.24 PO SCH (10:20)
[2019-12-04] MEDS: LISINOPRIL 20 MG TAB PO SCH (10:20)
[2019-12-04] MEDS: LACOSAMIDE 50 MG TABLET PO SCH ×2 (10:20→20:41)
[2019-12-04] MEDS: PANTOPRAZOLE 40 MG TABLET PO SCH (10:21)
[2019-12-04 11:27] LABS: Glucose,Whole Blood 146 mg/dL (75-99)
[2019-12-04] MEDS ORDERED: LORazepam 1 MG TAB PO STA (12:11)
[2019-12-04 16:37] LABS: Glucose,Whole Blood 90 mg/dL (75-99)
[2019-12-04] MEDS: ACETAMINOPHEN TAB 500 MG TAB PO PRN (20:42)
[2019-12-04 20:48] LABS: Glucose,Whole Blood 115 mg/dL (75-99)
[2019-12-05] MEDS: HEPARIN SODIUM,PORCINE 5,000 UNIT/ML 1 ML VIAL SQ SCH ×2 (00:35→07:57)
[2019-12-05] MEDS: MELATONIN 1 MG TAB PO SCH (00:38)
--- NOTE | 2019-12-05 01:29 | PN ---
PROGRESS NOTE SUBJECTIVE: The patient reports that he is seeing improvement in his gait, minimum foot drag on the right now. Headaches have completely resolved. He has no new complaints. The patient was unable again to undergo MRI imaging. The Ativan that was provided was p.o. rather than IV as I had recommended in my prior progress note. The patient also has claustrophobia and may be a better candidate for open air MRI. OBJECTIVE: Vital signs stable, afebrile. Patient examined. Chart reviewed. On neurologic exam, the patient is awake, alert, oriented x3. Speech fluent. CRANIAL NERVES: 3-12 are intact. MOTOR EXAMINATION: 5/5 strength in the upper extremities. Mild proximal weakness noted in the right leg. There is some distal weakness, - 5/5 on right foot flexion. Strength is 5/5 in the left upper and lower extremity. DEEP TENDON REFLEXES: +2 over the biceps, triceps, brachioradialis. Patella reflex on the right is +3, on the left +2. Ankle jerk is intact bilaterally. Plantar responses are flexor bilaterally. No ankle clonus is elicited. GAIT EXAMINATION: Shows that his gait is slightly wide-based, but no ataxia. There is still a mild footdrop noted on the right foot, less than prior examination. ASSESSMENT AND RECOMMENDATIONS: This is a 63-year-old gentleman who came to the emergency room with increasing headache and acute an onset of weakness in the right foot. This patient has a significant neurological history for prior stroke and a history of seizures which are being managed at [facility]. The patient also has a neurologist that he follows up with locally Dr. Martins. Unfortunately, we were not able to review an MRI during this inpatient admission, but we were able to obtain a CT scan on admission that did not show any evidence of an acute ischemic infarct or other intracranial pathology. This patient does appear to be improving clinically and today on his neurological exam he does have intact reflexes involving the right lower extremity. I am recommending that the patient have an outpatient open air MRI where he will be able to tolerate.. The patient should also arrange to follow up with Dr. Martins to undergo EMG nerve conduction studies in the lower extremity to determine if this is a radiculopathy. The patient should also continue with outpatient physical therapy and would appreciate if PT has any further recommendations prior to discharge, such as a supportive shoe/orthotic. Thank you for this consultation. The patient will continue to be followed as an inpatient and recommendations will be made as this case evolves. Anticipate discharge planning within the next 48 hours. ANJALI / BRANT: [id number] / MTDD
[2019-12-05 06:19] LABS: Glucose,Whole Blood 105 mg/dL (75-99)
[2019-12-05] MEDS: INSULIN ASPART (NovoLOG) 100 UNIT/ML VIAL SQ SCH ×2 (06:29→11:43)
[2019-12-05 07:57] VITALS: RESP 18
[2019-12-05] MEDS: LACOSAMIDE 50 MG TABLET PO SCH (07:57)
[2019-12-05] MEDS: GABAPENTIN 400 MG CAP PO SCH (07:58)
[2019-12-05] MEDS: metFORMIN 500 MG TAB PO SCH (07:58)
[2019-12-05] MEDS: LISINOPRIL 20 MG TAB PO SCH (07:58)
[2019-12-05] MEDS: CYANOCOBALAMIN 500 MCG TAB PO SCH (07:58)
[2019-12-05] MEDS: PANTOPRAZOLE 40 MG TABLET PO SCH (07:58)
[2019-12-05] MEDS: NIFEdipine XL 90 MG TAB.ER.24 PO SCH (07:58)
[2019-12-05] MEDS: FERROUS SULFATE 325 MG TAB PO SCH (07:58)
[2019-12-05] MEDS: LORATADINE 10 MG TAB PO SCH (07:58)
[2019-12-05] MEDS: ASPIRIN 325 MG TAB PO SCH (07:58)
[2019-12-05 11:34] LABS: Glucose,Whole Blood 120 mg/dL (75-99)
--- NOTE | 2019-12-05 12:04 | EEG ---
ELECTROENCEPHALOGRAM REPORT DATE OF SERVICE: 12/03/2019. DATE OF INTERPRETATION: 12/05/2019. INTERPRETING PHYSICIAN: Dr. Charleen Lopes. HISTORY: This is an inpatient EEG performed on a 63-year-old gentleman who was admitted for increasing headaches and acute onset of a right footdrop. The patient has a known history for epilepsy that was diagnosed approximately 2 years ago after a stroke. He is currently on lacosamide. No prior EEG is available for review. TECHNICAL REPORT: This is an inpatient EEG performed on the [employer] EEG monitor with electrodes placed according to the International 10-20 system and a single EKG channel. Simultaneous video EEG monitoring was performed. This EEG was reviewed in both longitudinal bipolar, common average referential, transverse montages. Photic stimulation was performed. Hyperventilation was not performed due to the patient's underlying cardiovascular condition. The recording begins with the patient awake with a well modulated, low amplitude, symmetric, 9 hertz posterior dominant rhythm that attenuates with eye opening. Intermittent muscle and movement artifact contaminate the tracing. Low amplitude beta activity is prominent over the anterior and central head region. The patient transitions into drowsiness (N1 sleep). He waxes and wanes in the initial part of the recording between wakefulness and drowsiness. Drowsiness is characterized by attenuation of the background rhythm with the appearance of moderate amplitude, 7 hertz theta potentials. Slow rolling eye movements are noted. Increase in beta activity anteriorly and centrally is noted. Photic stimulation is performed at various flash frequencies and fails to elicit a consistent driving response. At photic stimulation of 25 hertz the patient now transitions into stage 1 sleep again. This is followed by brief arousal with motion and movement artifact followed by transitioning into stage II non rapid eye movement sleep (N2 sleep). Stage 2 sleep is characterized by rare synchronous sleep spindles between 12-14 hertz that appear symmetric. Slowing of the background to 6-7 mixed theta frequencies. Increase in beta anteriorly and centrally. Rare vertex waves are noted. Deeper stages of sleep were not achieved. The patient has a spontaneous arousal out of stage 2 sleep, which manifests as increased motion and movement artifact and frequent blinking. The blinking was so frequent that the patient was told to stop blinking by the technologist. During this period, however, the patient does have a normal awake background of 8 hertz that is moderate amplitude and symmetric. Deeper stages of sleep were not achieved. IMPRESSION: This is a normal wake and brief sleep EEG study. No epileptiform discharges, electrographic seizures or clinical seizures were observed. The overall awake background and sleep architecture seem normal for this patient's stated age. No focal slowing or hemispheric slowing was noted. No abnormalities were noted during photic stimulation. No abnormalities were noted in the EKG. CLINICAL CORRELATION: A normal EEG does not preclude an underlying seizure tendency, thus further clinical correlation is needed. If clinically indicated, serial EEGs are recommended and/or a more prolonged overnight study could provide additional information. MMODL / IJN: [id number] /
[2019-12-05 12:22] VITALS: BP 119/70; PULSE 72; TEMP 98
--- NOTE | 2019-12-15 22:47 | P.PN ---
Subjective Progress Note Date: 12/04/19 Principal diagnosis: Acute CVA with right leg weakness. Patient is a 63-year-old male with a known history of CVA in 2017 without residual weakness, history of TIA, hypertension, diabetes type 2 [id number]-qpllibmpe, hyperlipidemia, seizure disorder and other medical problems came to ER with complaints of right lower extremity weakness. Patient says that he has been having elevated blood pressures for the last 2-3 days and was seen in the ER. Patient went home with improvement in blood pressure. Patient says that he went to bed approximately around 11 PM last night without problems. Patient woke up this morning around 7 and was noticed to have his right leg has been dragging since then. Patient also says that his blood pressure is elevated. Patient was able to walk without support. Patient says that he does have history of previous stroke with similar leg problems. Denied any upper activity weakness. No complaints of facial droop on difficulty and speech. Denied any trouble finding words. Patient says that she did have headache this morning which is severe than his normal headaches which made him woke up from sleep. Denied any headache at this time. No complaints of chest pain or shortness of breath. No fever no chills. No cough or sputum production. No leg swelling. No nausea vomiting or diarrhea. Denied any recent illnesses. EKG showed sinus rhythm with first-degree AV block. Chest x-ray showed no acute cardiopulmonary process. CT head showed no acute intracranial hemorrhage or midline shift. Old lacunar infarcts. There is diffuse is related cerebral atrophy and chronic small is a ischemic changes. CT angiogram of the head and neck showed stenosis of less than 50% of the branch of the right MCA. Stenosis of around 50% of the left proximal internal carotid artery. laboratory data reviewed. 12/03/2019 Patient is currently awake alert and oriented 3. Still having right lower activity weakness and dragging while walking. Denied any complaints of pain. Carotid duplex showed no significant hemodynamically stenosis noted. 2-D echocardiogram was done. Patient underwent MRI of the brain report is pending at this time. Otherwise patient is found to have low B12 level at 147. Started on IM B12 injections and oral dose. Neurology is on board. A1c was 6.8. Blood pressure is controlled at this time. LDL 119 Patient is tolerating oral diet. 12/04/2019 Patient could not get MRI due to severe anxiety. Complains of headache otherwise. No complaints of chest pain or shortness breath. Patient is still having right foot weakness and drags when he attempts to walk. Patient does not want to proceed with MRI at this time. Patient refused to go to MRI. Patient is being continued on aspirin and statins. Continued on PT OT. Tolerating oral diet. Neurology is following. Continue with neuro checks every 4 hours. Current medications reviewed. Objective - Vital Signs Vital signs: Vital Signs Temp 98 F 12/04/19 20:00 Pulse 73 12/04/19 20:00 Resp 16 12/04/19 20:00 BP 136/86 12/04/19 20:00 Pulse Ox 96 12/04/19 20:00 Intake & Output 12/04/19 12/04/19 12/05/19 06:59 18:59 06:59 Intake Total 750 Balance 750 Weight 110.5 kg Intake: Oral 750 Other: # Voids 5 # Bowel Movements 1 - Exam PHYSICAL EXAMINATION: Patient is lying in the bed comfortably, no acute distress, awake alert and oriented.. HEENT: Normocephalic. Neck is supple. Pupils reactive. Nostrils clear. Oral cavity is moist. Ears reveal no drainage. Neck reveals no JVD, carotid bruits, or thyromegaly. CHEST EXAMINATION: Trachea is central. Symmetrical expansion. Lung gabriel clear to auscultation and percussion. CARDIAC: Normal S1, S2 with no gallops. No murmurs ABDOMEN: Soft. Bowel sounds normal. No organomegaly. No abdominal bruits. Extremities: reveal no edema. No clubbing or cyanosis Neurologically awake, alert, oriented x3 with well-coordinated movements. Right lower activity muscle strength 3 out of 5 Skin: No rash or skin lesions. Psychiatric: Coperative. Nonsuicidal Musculoskeletal: No joint swelling or deformity. Normal range of motion. - Labs CBC & Chem 7: 12/04/19 06:57 12/04/19 06:57 Labs: Abnormal Lab Results - Last 24 Hours (Table) 12/04/19 12/04/19 12/04/19 Range/Units 06:57 06:57 11:26 RBC 4.20 L (4.30-5.90) m/uL Hgb 12.7 L (13.0-17.5) gm/dL Hct 38.4 L (39.0-53.0) % Plt Count 138 L (150-450) k/uL Glucose 101 H (74-99) mg/dL POC Glucose (mg/dL) 146 H (75-99) mg/dL 12/04/19 Range/Units 20:46 RBC (4.30-5.90) m/uL Hgb (13.0-17.5) gm/dL Hct (39.0-53.0) % Plt Count (150-450) k/uL Glucose (74-99) mg/dL POC Glucose (mg/dL) 115 H (75-99) mg/dL Assessment and Plan Assessment: Acute CVA with right lower extremity weakness. CT head showed no acute process. CT angiogram showed no significant stenosis. Patient refused MRI.. Vitamin B12 deficiency Previous history of CVA in 2017 and history of TIAs Uncontrolled hypertension. currently controlled Diabetes type 2 owj-dfuynkw-rvqszqsqh. A1c 6.8 Hyperlipidemia with LDL 119 History of seizure disorder Morbid obesity BMI 37.1 DVT prophylaxis with heparin subcu Plan: Patient will be nude on telemetry monitoring. Continue with stroke workup. TSH, B12, folate, A1c levels was done. Neurology is following. MRI of the brain was ordered.. Continue to follow closely and can with home medications. Blood pressure medications will be restarted and titrated as needed. PTOT consu lt Further recommendations based on the clinical course. Time with Patient: Greater than 30
--- NOTE | 2019-12-15 22:51 | P.DS ---
Providers Date of admission: 12/02/19 12:12 Expected date of discharge: 12/05/19 Attending physician: Rosa M Boogie Consults: 12/02/19 12:12 Consult Physician Routine Consulting Provider: Charleen Lopes Consult Reason/Comments: Leg weakness, probable CVA versus other Do you want consulting provider notified?: Yes Primary care physician: [facility] Course: Discharge diagnosis Acute CVA with right lower extremity weakness. Improving. CT head showed no acute process. CT angiogram showed no significant stenosis. Patient refused MRI.. Vitamin B12 deficiency Previous history of CVA in 2017 and history of TIAs Uncontrolled hypertension. currently controlled Diabetes type 2 clp-nwstdvd-maskvphrx. A1c 6.8 Hyperlipidemia with LDL 119 History of seizure disorder Morbid obesity BMI 37.1 DVT prophylaxis with heparin subcu Hospital course Patient is a 63-year-old male with a known history of CVA in 2017 without residual weakness, history of TIA, hypertension, diabetes type 2 mtd-waljpgd-tmxgntehz, hyperlipidemia, seizure disorder and other medical problems came to ER with complaints of right lower extremity weakness. Patient says that he has been having elevated blood pressures for the last 2-3 days and was seen in the ER. Patient went home with improvement in blood pressure. Patient says that he went to bed approximately around 11 PM last night without problems. Patient woke up this morning around 7 and was noticed to have his right leg has been dragging since then. Patient also says that his blood pressure is elevated. Patient was able to walk without support. Patient says that he does have history of previous stroke with similar leg problems. Denied any upper activity weakness. No complaints of facial droop on difficulty and sp eech. Denied any trouble finding words. Patient says that she did have headache this morning which is severe than his normal headaches which made him woke up from sleep. Denied any headache at this time. No complaints of chest pain or shortness of breath. No fever no chills. No cough or sputum production. No leg swelling. No nausea vomiting or diarrhea. Denied any recent illnesses. EKG showed sinus rhythm with first-degree AV block. Chest x-ray showed no acute cardiopulmonary process. CT head showed no acute intracranial hemorrhage or midline shift. Old lacunar infarcts. There is diffuse is related cerebral atrophy and chronic small is a ischemic changes. CT angiogram of the head and neck showed stenosis of less than 50% of the branch of the right MCA. Stenosis of around 50% of the left proximal internal carotid artery. laboratory data reviewed. 12/03/2019 Patient is currently awake alert and oriented 3. Still having right lower activity weakness and dragging while walking. Denied any complaints of pain. Carotid duplex showed no significant hemodynamically stenosis noted. 2-D echocardiogram was done. Patient underwent MRI of the brain report is pending at this time. Otherwise patient is found to have low B12 level at 147. Started on IM B12 injections and oral dose. Neurology is on board. A1c was 6.8. Blood pressure is controlled at this time. LDL 119 Patient is tolerating oral diet. 12/04/2019 Patient could not get MRI due to severe anxiety. Complains of headache otherwise. No complaints of chest pain or shortness breath. Patient is still having right foot weakness and drags when he attempts to walk. Patient does not want to proceed with MRI at this time. Patient refused to go to MRI. Patient is being continued on aspirin and statins. Continued on PT OT. Tolerating oral diet. Neurology is following. Continue with neuro checks every 4 hours. 12/05/2019 Patient could not get MRI. 2-D echocardiogram showed normal ejection fraction and concentric left ventricular hypertrophy. Carotid duplex showed no significant stenosis. Patient refused to get MRI due to claustrophobia. Was recommended to get MRI up on follow-up with neurology as an outpatient. Patient is a good candidate for outpatient MRI. Patient was seen by neurology. Currently right foot weakness is better and patient able to ambulate. No other significant overnight issues. Patient will be continued on aspirin and statins. Cleared from neurology standpoint and follow-up with neurology clinic and outpatient MRI and physical therapy. PHYSICAL EXAMINATION: Patient is lying in the bed comfortably, no acute distress, awake alert and oriented.. HEENT: Normocephalic. Neck is supple. Pupils reactive. Nostrils clear. Oral cavity is moist. Ears reveal no drainage. Neck reveals no JVD, carotid bruits, or thyromegaly. CHEST EXAMINATION: Trachea is central. Symmetrical expansion. Lung gabriel clear to auscultation and percussion. CARDIAC: Normal S1, S2 with no gallops. No murmurs ABDOMEN: Soft. Bowel sounds normal. No organomegaly. No abdominal bruits. Extremities: reveal no edema. No clubbing or cyanosis Neurologically awake, alert, oriented x3 with well-coordinated movements. Right lower activity weakness 4 out of 5 Skin: No rash or skin lesions. Psychiatric: Coperative. Nonsuicidal Musculoskeletal: No joint swelling or deformity. Normal range of motion. Discharge vitals reviewed. Patient Condition at Discharge: Stable Plan - Discharge Summary Discharge Rx Participant: No New Discharge Prescriptions: New Aspirin [Adult Low Dose Aspirin EC] 81 mg PO DAILY #30 tablet. Atorvastatin [Lipitor] 20 mg PO HS #30 tab Cyanocobalamin [Vitamin B-12] 1,000 mcg PO DAILY #30 tab Continue NIFEdipine [NIFEdipine ER] 90 mg PO DAILY Lisinopril 40 mg PO DAILY Loratadine [Claritin] 10 mg PO DAILY Gabapentin [Neurontin] 400 mg PO TID Ferrous Sulfate [Iron (65 MG Elemental)] 325 mg PO DAILY Ergocalciferol (Vitamin D2) [Vitamin D2] 50,000 unit PO Q30D Lacosamide [Vimpat] 200 mg PO BID 3 Days #6 tab metFORMIN HCL 1,000 mg PO BID Calcitriol 0.25 mcg PO Q28D Omeprazole 40 mg PO DAILY Discontinued Labetalol HCl 200 mg PO Q8H Discharge Medication List NIFEdipine [NIFEdipine ER] 90 mg PO DAILY 06/27/17 [History] Lisinopril 40 mg PO DAILY 07/14/18 [History] Loratadine [Claritin] 10 mg PO DAILY 07/14/18 [History] Gabapentin [Neurontin] 400 mg PO TID 11/12/18 [History] Ergocalciferol (Vitamin D2) [Vitamin D2] 50,000 unit PO Q30D 04/03/19 [History] Ferrous Sulfate [Iron (65 MG Elemental)] 325 mg PO DAILY 04/03/19 [History] Lacosamide [Vimpat] 200 mg PO BID 3 Days #6 tab 06/06/19 [Rx] Calcitriol 0.25 mcg PO Q28D 07/23/19 [History] Omeprazole 40 mg PO DAILY 07/23/19 [History] metFORMIN HCL 1,000 mg PO BID 07/23/19 [History] Aspirin [Adult Low Dose Aspirin EC] 81 mg PO DAILY #30 tablet. 12/05/19 [Rx] Atorvastatin [Lipitor] 20 mg PO HS #30 tab 12/05/19 [Rx] Cyanocobalamin [Vitamin B-12] 1,000 mcg PO DAILY #30 tab 12/05/19 [Rx] Follow up Appointment(s)/Referral(s): Raúl Abbott DO [Primary Care Provider] - 1-2 days (Office closed - please call to make an appointment) Alma Rosa Pride MD [Medical Doctor] - 1 Week (Office closed - please call to make an appointment) Ambulatory/Diagnostic Orders: Ambulatory Physical Therapy Order [THER.AMB] Location: None Selected Patient Instructions/Handouts: Transient Ischemic Attack (DC), Self Care Measures After a Stroke (DC) Discharge Disposition: HOME SELF-CARE
== END 2019-12-05 14:05 | disposition home or self-care (01) | DRG 66 ==
LOC: EC 10:31 → 3SCARD 12:12
PROVIDERS: ADMIT Internal Medicine; ATTEND Internal Medicine
DX: I63.9 Cerebral infarction, unspecified (principal); M21.371 Foot drop, right foot; E11.9 Type 2 diabetes mellitus without complications; E53.8 Deficiency of other specified B group vitamins; E66.01 Morbid (severe) obesity due to excess calories; E78.5 Hyperlipidemia, unspecified; F40.240 Claustrophobia; G40.909 Epilepsy, unspecified, not intractable, without status epilepticus; G83.11 Monoplegia of lower limb affecting right dominant side; Z11.59 Encounter for screening for other viral diseases; I10 Essential (primary) hypertension; I44.0 Atrioventricular block, first degree; K21.9 Gastro-esophageal reflux disease without esophagitis; R29.702 NIHSS score 2; Z68.37 Body mass index [BMI] 37.0-37.9, adult; Z79.84 Long term (current) use of oral hypoglycemic drugs; Z79.899 Other long term (current) drug therapy; Z86.73 Personal history of transient ischemic attack (TIA), and cerebral infarction without residual deficits; Z87.891 Personal history of nicotine dependence; Z80.9 Family history of malignant neoplasm, unspecified
CPT/HCPCS: 36415; 70450; 70496; 70498; 71046; 80048; 80053; 80061; 80235; 82550; 82553; 82607; 82747; 83036; 84443; 84484; 85025; 85610; 85652; 85730; 87635; 93005; 93306; 93880; 95819; 96361; 96374; 96375; 99283; 99284; 99285

== ENCOUNTER 2019-12-08 08:04 | Emergency (ER) | payer MEDICARE, OTHER ==
[2019-12-08 08:09] VITALS: TEMP 97.9
[2019-12-08] MEDS ORDERED: ONDANSETRON 4 MG/2 ML VIAL IVP STA (08:37)
[2019-12-08] MEDS ORDERED: SODIUM CHLORIDE 0.9% 1,000 ML IV STA (08:37)
--- NOTE | 2019-12-08 08:59 | ED ---
General Adult HPI - General Chief complaint: Nausea/Vomiting/Diarrhea Stated complaint: body aches/diarrhea Time Seen by Provider: 12/08/19 08:17 Source: patient, RN notes reviewed, old records reviewed Mode of arrival: wheelchair Limitations: physical limitation - History of Present Illness Initial comments: 63-year-old male presents for evaluation of 2 episodes of diarrhea. Symptoms have been present for the past 12 hours. He had his first episode yesterday evening and a second episode of diarrhea this morning. He describes it as green loose stool. No blood. He states he had some associated nausea without significant vomiting. Minimal epigastric abdominal pain. He denies recent antibiotics. Denies recent travel. Denies fever but states he has had some myalgias. No chest pain. No cough or URI symptoms. - Related Data Home Medications Medication Instructions Recorded Confirmed NIFEdipine [NIFEdipine ER] 90 mg PO DAILY 06/27/17 12/02/19 Lisinopril 40 mg PO DAILY 07/14/18 12/02/19 Loratadine [Claritin] 10 mg PO DAILY 07/14/18 12/02/19 Gabapentin [Neurontin] 400 mg PO TID 11/12/18 12/02/19 Ergocalciferol (Vitamin D2) 50,000 unit PO Q30D 04/03/19 12/02/19 [Vitamin D2] Ferrous Sulfate [Iron (65 MG 325 mg PO DAILY 04/03/19 12/02/19 Elemental)] Calcitriol 0.25 mcg PO Q28D 07/23/19 12/02/19 Omeprazole 40 mg PO DAILY 07/23/19 12/02/19 metFORMIN HCL 1,000 mg PO BID 07/23/19 12/02/19 Previous Rx's Medication Instructions Recorded Lacosamide [Vimpat] 200 mg PO BID 3 Days #6 tab 06/06/19 Aspirin [Adult Low Dose Aspirin EC] 81 mg PO DAILY #30 tablet. 12/05/19 Atorvastatin [Lipitor] 20 mg PO HS #30 tab 12/05/19 Cyanocobalamin [Vitamin B-12] 1,000 mcg PO DAILY #30 tab 12/05/19 Allergies Allergy/AdvReac Type Severity Reaction Status Date / Time No Known Allergies Allergy Verified 12/08/19 08:09 Review of Systems ROS Statement: Those systems with pertinent positive or pertinent negative responses have been documented in the HPI. ROS Other: All systems not noted in ROS Statement are negative. Past Medical History Past Medical History: Blood Disorder, CVA/TIA, Diabetes Mellitus, GERD/Reflux, Hyperlipidemia, Hypertension, Renal Disease, Seizure Disorder Additional Past Medical History / Comment(s): CVA 2017. LAST SEIZURE, UNKNOWN. iron deficiency anemia. History of Any Multi-Drug Resistant Organisms: None Reported Past Surgical History: Orthopedic Surgery Additional Past Surgical History / Comment(s): HX SURGERY KRISTIN FEET/ANKLES R/T INJURY. Past Anesthesia/Blood Transfusion Reactions: No Reported Reaction Past Psychological History: No Psychological Hx Reported Smoking Status: Never smoker Past Alcohol Use History: None Reported Past Drug Use History: None Reported - Past Family History Sister(s) Family Medical History: Cancer Mother Family Medical History: Cancer General Exam Limitations: physical limitation General appearance: alert, in no apparent distress Head exam: Present: atraumatic, normocephalic Eye exam: Present: normal appearance, PERRL ENT exam: Present: mucous membranes dry Neck exam: Present: normal inspection. Absent: tenderness Respiratory exam: Present: normal lung sounds bilaterally. Absent: respiratory distress, wheezes Cardiovascular Exam: Present: regular rate, normal rhythm GI/Abdominal exam: Present: soft. Absent: distended, tenderness, guarding, rebound, rigid Extremities exam: Present: normal inspection, normal capillary refill. Absent: pedal edema Neurological exam: Present: alert, oriented X3, CN II-XII intact. Absent: motor sensory deficit Psychiatric exam: Present: anxious Skin exam: Present: warm, dry, intact. Absent: cyanosis, diaphoretic Course Vital Signs 12/08/19 08:07 Temperature 97.9 F Pulse Rate 83 Respiratory 18 Rate Blood Pressure 143/86 O2 Sat by Pulse 98 Oximetry Medical Decision Making - Medical Decision Making 63-year-old male presenting with 2 episodes of diarrhea, he is well-appearing with stable vitals. Workup was initiated, he has a normal white blood cell count 4.3, stable hemoglobin at 12.2, normal electrolytes. Normal urinalysis. Ultimately patient's main concern was that he was infected with coronavirus, t his test is obtained and is negative. He is well-appearing otherwise, will be discharged, will monitor symptoms at home and return with worsening or changing symptoms, he will follow-up with his primary care physician. - Lab Data Result diagrams: 12/08/19 08:54 12/08/19 08:54 Lab Results 12/08/19 12/08/19 12/08/19 Range/Units 08:54 08:54 08:56 WBC 4.3 (3.8-10.6) k/uL RBC 4.09 L (4.30-5.90) m/uL Hgb 12.2 L (13.0-17.5) gm/dL Hct 37.1 L (39.0-53.0) % MCV 90.6 (80.0-100.0) fL MCH 29.8 (25.0-35.0) pg MCHC 32.9 (31.0-37.0) g/dL RDW 13.4 (11.5-15.5) % Plt Count 112 L (150-450) k/uL Neutrophils % 48 % Lymphocytes % 39 % Monocytes % 6 % Eosinophils % 3 % Basophils % 1 % Neutrophils # 2.1 (1.3-7.7) k/uL Lymphocytes # 1.7 (1.0-4.8) k/uL Monocytes # 0.3 (0-1.0) k/uL Eosinophils # 0.1 (0-0.7) k/uL Basophils # 0.0 (0-0.2) k/uL Sodium 141 (137-145) mmol/L Potassium 4.6 (3.5-5.1) mmol/L Chloride 110 H (98-107) mmol/L Carbon Dioxide 22 (22-30) mmol/L Anion Gap 9 mmol/L BUN 22 H (9-20) mg/dL Creatinine 1.02 (0.66-1.25) mg/dL Est GFR (CKD-EPI)AfAm 90 (>60 ml/min/1.73 sqM) Est GFR (CKD-EPI)NonAf 78 (>60 ml/min/1.73 sqM) Glucose 110 H (74-99) mg/dL Calcium 9.1 (8.4-10.2) mg/dL Total Bilirubin 0.6 (0.2-1.3) mg/dL AST 50 (17-59) U/L ALT 57 H (4-49) U/L Alkaline Phosphatase 47 (38-126) U/L Total Protein 7.7 (6.3-8.2) g/dL Albumin 4.3 (3.5-5.0) g/dL Lipase 115 (23-300) U/L Urine Color Light Yellow Urine Appearance Clear (Clear) Urine pH 6.0 (5.0-8.0) Ur Specific [employer] 1.012 (1.001-1.035) Urine Protein Negative (Negative) Urine Glucose (UA) Negative (Negative) Urine Ketones Negative (Negative) Urine Blood Negative (Negative) Urine Nitrite Negative (Negative) Urine Bilirubin Negative (Negative) Urine Urobilinogen <2.0 (<2.0) mg/dL Ur Leukocyte Esterase Negative (Negative) Coronavirus (PCR) (Not Detectd) 12/08/19 Range/Units 09:13 WBC (3.8-10.6) k/uL RBC (4.30-5.90) m/uL Hgb (13.0-17.5) gm/dL Hct (39.0-53.0) % MCV (80.0-100.0) fL MCH (25.0-35.0) pg MCHC (31.0-37.0) g/dL RDW (11.5-15.5) % Plt Count (150-450) k/uL Neutrophils % % Lymphocytes % % Monocytes % % Eosinophils % % Basophils % % Neutrophils # (1.3-7.7) k/uL Lymphocytes # (1.0-4.8) k/uL Monocytes # (0-1.0) k/uL Eosinophils # (0-0.7) k/uL Basophils # (0-0.2) k/uL Sodium (137-145) mmol/L Potassium (3.5-5.1) mmol/L Chloride (98-107) mmol/L Carbon Dioxide (22-30) mmol/L Anion Gap mmol/L BUN (9-20) mg/dL Creatinine (0.66-1.25) mg/dL Est GFR (CKD-EPI)AfAm (>60 ml/min/1.73 sqM) Est GFR (CKD-EPI)NonAf (>60 ml/min/1.73 sqM) Glucose (74-99) mg/dL Calcium (8.4-10.2) mg/dL Total Bilirubin (0.2-1.3) mg/dL AST (17-59) U/L ALT (4-49) U/L Alkaline Phosphatase (38-126) U/L Total Protein (6.3-8.2) g/dL Albumin (3.5-5.0) g/dL Lipase (23-300) U/L Urine Color Urine Appearance (Clear) Urine pH (5.0-8.0) Ur Specific [employer] (1.001-1.035) Urine Protein (Negative) Urine Glucose (UA) (Negative) Urine Ketones (Negative) Urine Blood (Negative) Urine Nitrite (Negative) Urine Bilirubin (Negative) Urine Urobilinogen (<2.0) mg/dL Ur Leukocyte Esterase (Negative) Coronavirus (PCR) Not Detected (Not Detectd) Disposition Clinical Impression: Dehydration, Diarrhea Disposition: HOME SELF-CARE Condition: Good Instructions (If sedation given, give patient instructions): Acute Diarrhea (ED) Is patient prescribed a controlled substance at d/c from ED?: No Referrals: Raúl Abbott DO [Primary Care Provider] - 1-2 days Decision to Admit Reason: Admit from EC Decision Date: 12/08/19 Decision Time: 10:11
[2019-12-08 09:10] LABS: Basophils % (A) 1 %; Eosinophils # (A) 0.1 k/uL (0-0.7); Eosinophils % (A) 3 %; HCT 37.1 % (39.0-53.0); HGB 12.2 gm/dL (13.0-17.5); Lymphocytes # (A) 1.7 k/uL (1.0-4.8); Lymphocytes % (A) 39 %; MCH 29.8 pg (25.0-35.0); MCHC 32.9 g/dL (31.0-37.0); MCV 90.6 fL (80.0-100.0); Mean Platelet Volume 9.3; Monocytes # (A) 0.3 k/uL (0-1.0); Monocytes % (A) 6 %; Neutrophils # (A) 2.1 k/uL (1.3-7.7); Neutrophils % (A) 48 %; Platelet Count 112 k/uL (150-450); RBC 4.09 m/uL (4.30-5.90); RDW 13.4 % (11.5-15.5); WBC 4.3 k/uL (3.8-10.6)
[2019-12-08 09:13] LABS: Appearance,Urine Clear (Clear); Bilirubin,Urine Negative (Negative); Blood,Urine Negative (Negative); Color,Urine Light Yellow; Glucose,Urine (UA) Negative (Negative); Ketones,Urine Negative (Negative); Leukocyte Esterase,Urine Negative (Negative); Nitrite,Urine Negative (Negative); Protein,Urine Negative (Negative); Specific Gravity,Urine 1.012 (1.001-1.035); Urobilinogen,Urine <2.0 mg/dL (<2.0)
[2019-12-08 09:24] LABS: Albumin 4.3 g/dL (3.5-5.0); Calcium 9.1 mg/dL (8.4-10.2); Total Bilirubin 0.6 mg/dL (0.2-1.3); Total Protein 7.7 g/dL (6.3-8.2)
[2019-12-08 09:26] LABS: Potassium 4.6 mmol/L (3.5-5.1)
[2019-12-08 10:24] VITALS: BP 132/79; PULSE 76; RESP 16
== END 2019-12-08 10:24 | disposition home or self-care (01) ==
LOC: EC 08:04
DX: E86.0 Dehydration (principal); R19.7 Diarrhea, unspecified; R11.0 Nausea; R10.13 Epigastric pain; Z20.828 Contact with and (suspected) exposure to other viral communicable diseases; E11.9 Type 2 diabetes mellitus without complications; I10 Essential (primary) hypertension; K21.9 Gastro-esophageal reflux disease without esophagitis; Z79.84 Long term (current) use of oral hypoglycemic drugs; Z79.899 Other long term (current) drug therapy; Z86.73 Personal history of transient ischemic attack (TIA), and cerebral infarction without residual deficits
CPT/HCPCS: 36415; 80053; 83690; 85025; 81003; 87635; 99284; 96374; 96361; J2405

== ENCOUNTER → 2020-09-06 | Outpatient (CLI) | payer MEDICARE, OTHER ==
[2020-09-06 12:08] LABS: Basophils # (A) 0.1 k/uL (0-0.2); Basophils % (A) 1 %; Eosinophils # (A) 0.2 k/uL (0-0.7); Eosinophils % (A) 4 %; HCT 37.6 % (39.0-53.0); HGB 12.5 gm/dL (13.0-17.5); Lymphocytes # (A) 1.6 k/uL (1.0-4.8); Lymphocytes % (A) 32 %; MCH 30.5 pg (25.0-35.0); MCHC 33.1 g/dL (31.0-37.0); MCV 92.3 fL (80.0-100.0); Mean Platelet Volume 8.5; Monocytes # (A) 0.4 k/uL (0-1.0); Monocytes % (A) 8 %; Neutrophils # (A) 2.6 k/uL (1.3-7.7); Neutrophils % (A) 53 %; Platelet Count 107 k/uL (150-450); RBC 4.08 m/uL (4.30-5.90); RDW 12.9 % (11.5-15.5); WBC 4.9 k/uL (3.8-10.6)
[2020-09-06 12:19] LABS: Appearance,Urine Clear (Clear); Bilirubin,Urine Negative (Negative); Blood,Urine Negative (Negative); Color,Urine Yellow; Glucose,Urine (UA) Negative (Negative); Ketones,Urine Negative (Negative); Leukocyte Esterase,Urine Trace (Negative); Mucus,Urine Rare /hpf; Nitrite,Urine Negative (Negative); PH, Urine 6.5 (5.0-8.0); Protein,Urine Negative (Negative); RBC,Urine <1 /hpf (0-5); Specific Gravity,Urine 1.014 (1.001-1.035); Squamous Epithelial Cell,Urine <1 /hpf (0-4); Urobilinogen,Urine <2.0 mg/dL (<2.0); WBC,Urine 1 /hpf (0-5)
[2020-09-07 05:47] LABS: % Iron Saturation 15.21 (15.00-50.00); African American GFR (CKD) 73.1 (60.0-200.0); Albumin 4.5 g/dL (3.80-4.90); Albumin/Globulin Ratio 1.88 (1.60-3.17); Anion Gap 9.5 mmol/L (4.00-12.00); BUN/Creat Ratio 16.67 Ratio (12.00-20.00); Calcium 9.2 mg/dL (8.7-10.3); Carbon Dioxide 20.5 mmol/L (21.6-31.8); Globulin 2.4 g/dL (1.6-3.3); Magnesium 1.6 mg/dL (1.5-2.4); Non-African American GFR(CKD) 63.1 (60.0-200.0); Phosphorus 2.9 mg/dL (2.4-5.1); Potassium 4.5 mmol/L (3.5-5.5); Total Bilirubin 0.2 mg/dL (0.2-1.2); Total Protein 6.9 g/dL (6.2-8.2); Uric Acid 7.4 mg/dL (3.7-8.7)
[2020-09-07 05:48] LABS: Ferritin 284.6 ng/mL (22.0-322.0); Urine Creatinine 108.2 mg/dL
== END | disposition home or self-care (01) ==
LOC: LABWHC1 11:41
PROVIDERS: ATTEND Nurse Practitioner Family
DX: N18.2 Chronic kidney disease, stage 2 (mild) (principal)
CPT/HCPCS: 36415; 80053; 81001; 82043; 82306; 82570; 82728; 83540; 83550; 83735; 83970; 84100; 84550; 85025